=== PATIENT | male | born 1950 | race Caucasian/White ===

== ENCOUNTER 2017-11-30 08:04 | Day surgery (SDC) | payer MEDICARE, BC ==
[2017-11-23 16:04] VITALS: BMI 25.5
[~2017-11-30 08:04] MED LIST: DEXAMETHASONE SOD PHOSPHATE 10 MG/ML 1 ML VIAL IV ONE; HEPARIN SODIUM,PORCINE 5,000 UNIT/ML 1 ML VIAL SQ ONE; LIDOCAINE 1% 20 ML VIAL (10MG/ML) FOR IV START INTRADERMA PRN; MIDAZOLAM 2 MG/2 ML VIAL IV PRN; ONDANSETRON 4 MG/2 ML VIAL IVP ONE; SCOPOLAMINE 1.5MG/72HR PATCH TRANSDERM ONE; ceFAZolin IN SWFI 2 GM/20 ML SYRINGE IVP ONE
[2017-11-30] MEDS: LACTATED RINGERS 1,000 ML IV SCH (09:34)
[2017-11-30] MEDS ORDERED: LIDOCAINE 1% 20 ML VIAL (10MG/ML) FOR IV START INTRADERMA ONE (09:34)
--- NOTE | 2017-11-30 10:04 | P.GSHP ---
History of Present Illness H&P Date: 11/30/17 Chief Complaint: Left inguinal hernia This is a 67-year-old male presents today for laparoscopic robotic left and one hernia. Patient is mildly tender mass left groin. The mass is reducible. Past Medical History Past Medical History: COPD Additional Past Medical History / Comment(s): left inguinal hernia History of Any Multi-Drug Resistant Organisms: None Reported Past Surgical History: Hernia Repair Additional Past Surgical History / Comment(s): hemorrhoidectomy,throat surg, shoulder Past Anesthesia/Blood Transfusion Reactions: No Reported Reaction Additional Past Anesthesia/Blood Transfusion Reaction / Comment(s): no hx blood transfusion Smoking Status: Current every day smoker - Past Family History Mother Family Medical History: No Reported History Father Family Medical History: Cancer Medications and Allergies Home Medications Medication Instructions Recorded Confirmed Type Aspirin 81 mg PO DAILY 11/23/17 11/23/17 History Budesonide/Formoterol Fumarate 2 puff INHALATION BID 11/23/17 11/23/17 History [Symbicort 160-4.5 Mcg Inhaler] Lovastatin [Mevacor] 20 mg PO HS 11/23/17 11/23/17 History Magnesium 250 mg PO DAILY 11/23/17 11/23/17 History Multivit-Min/FA/Lycopen/Lutein 1 tab PO DAILY 11/23/17 11/23/17 History [Centrum Silver Men Tablet] Naproxen 500 mg PO DAILY 11/23/17 11/23/17 History Tiotropium 18 Mcg/Puff [Spiriva] 1 puff INHALATION QAM 11/23/17 11/23/17 History diphenhydrAMINE HCL [Benadryl] 50 mg PO HS 11/23/17 11/23/17 History Allergies Allergy/AdvReac Type Severity Reaction Status Date / Time No Known Allergies Allergy Verified 11/30/17 08:54 Surgical - Exam Vital Signs Temp Pulse Resp BP Pulse Ox 97.3 F L 100 16 155/101 94 L 11/30/17 09:32 11/30/17 09:32 11/30/17 09:32 11/30/17 09:32 11/30/17 09:32 - General well developed, no distress - Eyes PERRL - ENT normal pinna - Neck no masses - Respiratory normal expansion - Cardiovascular Rhythm: regular - Abdomen Reducible left inguinal hernia Abdomen: soft, non tender Assessment and Plan Assessment: Left inguinal hernia. We'll perform laparoscopic robotic-assisted repair.
--- NOTE | 2017-11-30 10:15 | P.OP ---
Date of Procedure: 11/30/17 Preoperative Diagnosis: Right lower quadrant pain Inflamed or bowel disease Postoperative Diagnosis: Poor colonic prep Inflammatory bowel disease Procedure(s) Performed: Colonoscopy Anesthesia: MAC Surgeon: Chris Mcclendon Pathology: none sent Condition: stable Disposition: PACU Description of Procedure: The patient's placed on the endoscopy table in the lateral position. She received IV sedation. Digital rectal exam was performed which revealed no abnormalities. The flexible colonoscope was then placed patient anus passed with colon. The scope passed down splenic flexure secondary to poor colonic prep. There was a large amount of liquid stool in the colon. Scope was withdrawn. The remainder the descending; appeared normal however the view was quite limited due to the poor colonic prep. Scope was then brought back the rectum this appeared normal scope was withdrawn for patient.
[2017-11-30] MEDS ORDERED: NEOSTIGMINE 1 MG/ML 10 ML VIAL ONE (10:39)
[2017-11-30] MEDS ORDERED: ROCURONIUM BROMIDE 10 MG/ML 10 ML VIAL IV ONE (10:39)
[2017-11-30] MEDS ORDERED: LIDOCAINE 1% INJ 10MG/ML (20 ML MDV) ONE (10:39)
[2017-11-30] MEDS ORDERED: fentaNYL (PF) 50 MCG/ML 2 ML AMP ONE (10:39)
[2017-11-30] MEDS ORDERED: PROPOFOL 10 MG/ML 20 ML VIAL IV ONE (10:39)
[2017-11-30] MEDS ORDERED: ROPIVACAINE 5 MG/ML 30 ML VIAL ONE (10:39)
[2017-11-30] MEDS ORDERED: GLYCOPYRROLATE 0.2 MG/ML 2 ML VIAL ONE (10:39)
[2017-11-30] MEDS ORDERED: BUPIVACAIN-EPI 0.25%-1:200,000 30 ML VIAL SQ ONE (11:02)
[2017-11-30 11:45] VITALS: TEMP 98.5
--- NOTE | 2017-11-30 11:48 | P.OP ---
Date of Procedure: 11/30/17 Preoperative Diagnosis: Left inguinal hernia Postoperative Diagnosis: Recurrent left inguinal hernia Procedure(s) Performed: Laparoscopic robotic-assisted repair of left inguinal hernia Excision of left cord lipoma Anesthesia: GEORGE Surgeon: Chris Mcclendon Estimated Blood Loss (ml): 5 Pathology: other (Cord lipoma) Condition: stable Disposition: PACU Description of Procedure: The patient was placed on the operating table in the supine position. The patient received general anesthesia. The patient's abdomen was prepped and draped in usual sterile fashion. The skin was anesthetized 1% local Xylocaine at the incision sites. Using an 11 blade a skin incision was made at the umbilicus. The fascia was grasped with a [place] and then the peritoneal cavity was entered with the Veress needle. Position of the Veress needle was confirmed with a positive drop test. After adequate insufflation a 5 mm trocar was placed into the peritoneal cavity. The Laparoscope was placed the peritoneal cavity. And a robotic 8 mm trocar was placed in the right lateral position and then another 8 mm robotic trochars placed in the left lateral position. The original 5 mm trocar was exchanged for a 12 mm trocar. The patient was placed in reverse Trendelenburg and then the patient was docked to the robot. Next the peritoneum over top of the hernia was incised and then using blunt and sharp dissection and electrocautery the hernia sac was dissected free from the floor of the inguinal canal. The cord lipoma was dissected free. The hernia sac was completely reduced into the peritoneal cavity. And then using the Pro cycle counter mesh the hernia was repaired. The peritoneum was then sutured with 2-0V lock suture. The patient was then undocked the robot. The needle and cord lipoma was withdrawn from the peritoneal cavity. The umbilical trocar site was closed with 0 Ethibond suture. The skin was closed interrupted 3-0 Monocryl suture. Dermabond dressing was applied. Patient was sent to recovery in stable condition.
[2017-11-30] MEDS: HYDROmorphone 0.5 MG/0.5 ML SYRINGE IVP PRN ×2 (12:08→12:21)
[2017-11-30 12:54] VITALS: RESP 20
[2017-11-30 13:17] VITALS: PULSE 100
[2017-11-30 13:18] VITALS: BP 146/81
--- NOTE | 2017-12-01 20:41 | P.ONQ ---
Anesthesiology Proc Note - PNB - Peripheral Nerve Block Performed Bilateral Transversus Abdominis Single Time Out Performed: Yes Procedure Start Time: Procedure Stop Time: Indication: Acute Post-Operative Pain, Requested by physician Sedation Type: Sedate with meaningful contact maintained Preparation: Sterile Prep Position: Supine Needle Size: 50mm (2") Needle Gauge: 21 Technique: Ultrasound Injectate: 0.5% Ropivacaine (see comment for volume) (ropi .5% 15cceach side) Blood Aspirated: No Pain Paresthesia on Injection Noted: No Resistance on Injection: Normal Events: Uneventful and Well Tolerated
== END 2017-11-30 14:30 | disposition home or self-care (01) ==
LOC: OR 08:04
PROVIDERS: ATTEND Surgery
DX: K40.90 Unilateral inguinal hernia, without obstruction or gangrene, not specified as recurrent (principal); D17.6 Benign lipomatous neoplasm of spermatic cord; J44.9 Chronic obstructive pulmonary disease, unspecified; E78.5 Hyperlipidemia, unspecified; F17.210 Nicotine dependence, cigarettes, uncomplicated; Z79.1 Long term (current) use of non-steroidal anti-inflammatories (NSAID); Z79.82 Long term (current) use of aspirin; Z79.51 Long term (current) use of inhaled steroids; Z79.899 Other long term (current) drug therapy
CPT/HCPCS: 49650; 64488; 88304; C1781; J2250; J1644; J1100; J2710; J2405; J2001; J3010; J2795; J2704; J1170; J0690

== ENCOUNTER 2018-07-26 06:44 | Inpatient (IN) | payer BC, MEDICARE ==
[2018-07-26] MEDS ORDERED: IPRATROPIUM-ALBUTEROL 3 ML NEB INHALATION STA ×3 (07:24→08:53)
[2018-07-26] MEDS ORDERED: SODIUM CHLORIDE 0.9% 1,000 ML IV STA ×2 (07:24)
[2018-07-26] MEDS ORDERED: methylPREDNISolone SOD SUCCI 125 MG/2 ML VIAL IV STA (07:26)
[2018-07-26] MEDS ORDERED: IBUPROFEN 600 MG TAB PO STA (07:27)
[2018-07-26] MEDS ORDERED: ACETAMINOPHEN TAB 500 MG TAB PO STA (07:27)
[2018-07-26] MEDS ORDERED: cefTRIAXone IN SWFI 1,000 MG/10 ML SYRINGE IVP STA (07:35)
--- NOTE | 2018-07-26 07:37 | ED ---
URI HPI - General Source: patient, RN notes reviewed, old records reviewed Mode of arrival: ambulatory Limitations: physical limitation <Jaelyn Johns - Last Filed: 07/26/18 08:54> <Get Renteria - Last Filed: 07/26/18 09:34> - General Chief Complaint: Upper Respiratory Infection Stated Complaint: Upper Resp Time Seen by Provider: 07/26/18 07:17 - History of Present Illness Initial Comments: Patient is a pleasant 67-year-old male presents for insulin today with cough congestion for the past 4 days. Patient states he has a history of COPD. He's had no recent treatment with steroids or antibiotics. He complains of the femur, congestion that has settled into his lungs. Patient states that he does not normally wear oxygen. Patient arrives emergency department today with a low-grade temperature 99.1, tachycardic in 120 beats were minute. His pulse oxygen saturation was 90% on room air. 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 Patient states that he has had a productive green-yellow sputum cough as well as complaint of chest pain with taking a deep breath. Patient denies any cardiac history. Denies any nausea or vomiting. He does report loose stools over the past few days. (Jaelyn Johns) - Related Data Home Medications Medication Instructions Recorded Confirmed Aspirin 81 mg PO HS 11/23/17 07/26/18 Budesonide/Formoterol Fumarate 2 puff INHALATION RT-BID 11/23/17 07/26/18 [Symbicort 160-4.5 Mcg Inhaler] Lovastatin [Mevacor] 20 mg PO HS 11/23/17 07/26/18 Multivit-Min/FA/Lycopen/Lutein 1 tab PO DAILY 11/23/17 07/26/18 [Centrum Silver Men Tablet] Naproxen 500 mg PO DAILY 11/23/17 07/26/18 Tiotropium 18 Mcg/Puff [Spiriva] 1 puff INHALATION RT-DAILY 11/23/17 07/26/18 diphenhydrAMINE HCL [Benadryl] 50 mg PO HS 11/23/17 07/26/18 Allergies Allergy/AdvReac Type Severity Reaction Status Date / Time No Known Allergies Allergy Verified 07/26/18 07:27 Review of Systems ROS Other: All systems not noted in ROS Statement are negative. <Ceci Johnsily - Last Filed: 07/26/18 08:54> ROS Other: All systems not noted in ROS Statement are negative. <Get Renteria - Last Filed: 07/26/18 09:34> ROS Statement: Those systems with pertinent positive or pertinent negative responses have been documented in the HPI. Past Medical History Past Medical History: COPD Additional Past Medical History / Comment(s): left inguinal hernia History of Any Multi-Drug Resistant Organisms: None Reported Past Surgical History: Hernia Repair Additional Past Surgical History / Comment(s): hemorrhoidectomy,throat surg,shoulder Past Anesthesia/Blood Transfusion Reactions: No Reported Reaction Additional Past Anesthesia/Blood Transfusion Reaction / Comment(s): no hx blood transfusion Past Psychological History: No Psychological Hx Reported Smoking Status: Current every day smoker Past Alcohol Use History: None Reported Past Drug Use History: None Reported - Past Family History Mother Family Medical History: No Reported History Father Family Medical History: Cancer <Jaelyn Johns - Last Filed: 07/26/18 08:54> General Exam Limitations: physical limitation General appearance: alert, in no apparent distress Head exam: Present: atraumatic, normocephalic, normal inspection Eye exam: Present: normal appearance ENT exam: Present: normal exam, mucous membranes moist Neck exam: Present: normal inspection. Absent: tenderness, meningismus, lymphadenopathy Respiratory exam: Present: wheezes (Wheezing throughout bilateral lower lung fie lds.). Absent: normal lung sounds bilaterally, respiratory distress, rales, rhonchi, stridor Cardiovascular Exam: Present: regular rate, normal rhythm, normal heart sounds. Absent: systolic murmur, diastolic murmur, rubs, gallop, clicks GI/Abdominal exam: Present: soft, normal bowel sounds. Absent: distended, tenderness, guarding, rebound, rigid Extremities exam: Present: normal inspection, full ROM, normal capillary refill. Absent: tenderness, pedal edema, joint swelling, calf tenderness Back exam: Present: normal inspection Neurological exam: Present: alert, oriented X3, CN II-XII intact Psychiatric exam: Present: normal affect, normal mood Skin exam: Present: warm, dry, intact, normal color. Absent: rash <Jaelyn Johns - Last Filed: 07/26/18 08:54> - General Exam Comments Initial Comments: Pleasant 67-year-old male. Patient appears to be in mild S for discomfort, sitting forward (Jaelyn Johns) Course <Jaelyn Johns - Last Filed: 07/26/18 08:54> Vital Signs 07/26/18 07/26/18 07/26/18 06:47 07:50 08:14 Temperature 99.1 F 99.2 F Pulse Rate 72 110 H 102 H Respiratory 18 22 Rate Blood Pressure 145/82 137/78 O2 Sat by Pulse 90 L 93 L Oximetry 07/26/18 07/26/18 07/26/18 08:23 08:57 09:09 Temperature Pulse Rate 103 H 101 H 103 H Respiratory Rate Blood Pressure O2 Sat by Pulse Oximetry 07/26/18 09:23 Temperature Pulse Rate 103 H Respiratory 18 Rate Blood Pressure 105/63 O2 Sat by Pulse 90 L Oximetry - Reevaluation(s) Reevaluation #1: 07/26/18 08:54 Patient is reevaluated this time after 2 breathing treatments, pulse ox is still 90% on 2 L of oxygen, diffuse wheezing noted. Informed of pneumonia and blood work findings. Discussed admission for Patient Patient is agreeable. (Jaelyn Coe) Medical Decision Making - Lab Data Result diagrams: 07/26/18 07:30 07/26/18 07:30 - Radiology Data Radiology results: report reviewed <Jaelyn Johns - Last Filed: 07/26/18 08:54> - Lab Data Result diagrams: 07/26/18 07:30 07/26/18 07:30 <Get Renteria - Last Filed: 07/26/18 09:34> - Medical Decision Making Patient's a 67-year-old male history of COPD. He presents [facility] in today with 4 days of congestion and coughing low-grade temperatures. He reports emergency department mild respiratory discomfort distress, fever or tachycardia. Patient chest x-ray shows evidence of a right basilar pneumonia with underlying COPD changes. Patient started on Solu-Medrol and given 3 breathing treatments continuing to have some wheezing noted. Patient started on Rocephin and azithromycin for pneumonia. Patient was admitted this time with consult p ulmonology. All questions answered. Discussed case with Dr. Renteria from discussed this with Dr. Rice. (Jaelyn Johns) Patient was reevaluated by myself, Dr. Renteria. Patient is resting comfortably in bed. Patient does have wheezing with breath sounds. I do agree with PA findings. This includes diagnostic interpretation and treatment plan. Case was also discussed in detail with Dr. Rice, who will admit covering for Dr. Dorantes. Patient was updated. (Get Renteria) - Lab Data Lab Results 07/26/18 07/26/18 07/26/18 Range/Units 07:30 07:30 07:30 WBC 13.1 H (3.8-10.6) k/uL RBC 5.22 (4.30-5.90) m/uL Hgb 14.3 (13.0-17.5) gm/dL Hct 45.2 (39.0-53.0) % MCV 86.7 (80.0-100.0) fL MCH 27.4 (25.0-35.0) pg MCHC 31.6 (31.0-37.0) g/dL RDW 15.1 (11.5-15.5) % Plt Count 251 (150-450) k/uL Neutrophils % 89 % Lymphocytes % 5 % Monocytes % 4 % Eosinophils % 0 % Basophils % 0 % Neutrophils # 11.6 H (1.3-7.7) k/uL Lymphocytes # 0.7 L (1.0-4.8) k/uL Monocytes # 0.6 (0-1.0) k/uL Eosinophils # 0.1 (0-0.7) k/uL Basophils # 0.0 (0-0.2) k/uL PT 10.6 (9.0-12.0) sec INR 1.0 (<1.2) APTT 27.1 (22.0-30.0) sec Sodium 137 (137-145) mmol/L Potassium 4.5 (3.5-5.1) mmol/L Chloride 103 (98-107) mmol/L Carbon Dioxide 26 (22-30) mmol/L Anion Gap 8 mmol/L BUN 19 (9-20) mg/dL Creatinine 1.17 (0.66-1.25) mg/dL Est GFR (CKD-EPI)AfAm 74 (>60 ml/min/1.73 sqM) Est GFR (CKD-EPI)NonAf 64 (>60 ml/min/1.73 sqM) Glucose 111 H (74-99) mg/dL Plasma Lactic Acid Riley (0.7-2.0) mmol/L Calcium 9.0 (8.4-10.2) mg/dL Magnesium 2.0 (1.6-2.3) mg/dL Total Bilirubin 0.6 (0.2-1.3) mg/dL AST 34 (17-59) U/L ALT 27 (21-72) U/L Alkaline Phosphatase 72 (38-126) U/L Troponin I (0.000-0.034) ng/mL Total Protein 6.4 (6.3-8.2) g/dL Albumin 3.5 (3.5-5.0) g/dL 07/26/18 07/26/18 Range/Units 07:30 07:30 WBC (3.8-10.6) k/uL RBC (4.30-5.90) m/uL Hgb (13.0-17.5) gm/dL Hct (39.0-53.0) % MCV (80.0-100.0) fL MCH (25.0-35.0) pg MCHC (31.0-37.0) g/dL RDW (11.5-15.5) % Plt Count (150-450) k/uL Neutrophils % % Lymphocytes % % Monocytes % % Eosinophils % % Basophils % % Neutrophils # (1.3-7.7) k/uL Lymphocytes # (1.0-4.8) k/uL Monocytes # (0-1.0) k/uL Eosinophils # (0-0.7) k/uL Basophils # (0-0.2) k/uL PT (9.0-12.0) sec INR (<1.2) APTT (22.0-30.0) sec Sodium (137-145) mmol/L Potassium (3.5-5.1) mmol/L Chloride (98-107) mmol/L Carbon Dioxide (22-30) mmol/L Anion Gap mmol/L BUN (9-20) mg/dL Creatinine (0.66-1.25) mg/dL Est GFR (CKD-EPI)AfAm (>60 ml/min/1.73 sqM) Est GFR (CKD-EPI)NonAf (>60 ml/min/1.73 sqM) Glucose (74-99) mg/dL Plasma Lactic Acid Riley 1.0 (0.7-2.0) mmol/L Calcium (8.4-10.2) mg/dL Magnesium (1.6-2.3) mg/dL Total Bilirubin (0.2-1.3) mg/dL AST (17-59) U/L ALT (21-72) U/L Alkaline Phosphatase (38-126) U/L Troponin I <0.012 (0.000-0.034) ng/mL Total Protein (6.3-8.2) g/dL Albumin (3.5-5.0) g/dL 07/26/18 07:57 EKG shows sinus tachycardia possible left atrial enlargement. Ventricular rate of 111 beats were minute. FL interval is 156 most seconds. She samaritan 92 ms. QT QTc is 324/440 ms. (Jaelyn Johns) - Radiology Data Right basilar pneumonia, underlying COPD. A bronchial cuffing that may relate to infectious, reactive airway disease. (Jaelyn Johns) Disposition Is patient prescribed a controlled substance at d/c from ED?: No Time of Disposition: 08:55 <Jaelyn Johns - Last Filed: 07/26/18 08:54> <Get Renteria - Last Filed: 07/26/18 09:34> Clinical Impression: CAP (community acquired pneumonia), COPD (chronic obstructive pulmonary disease) Disposition: ADMITTED IP TO THIS HOSP Condition: Stable Referrals: Britany Lomas DO [Primary Care Provider] - 1-2 days
[2018-07-26 08:03] LABS: Basophils % (A) 0 %; Eosinophils # (A) 0.1 k/uL (0-0.7); Eosinophils % (A) 0 %; HCT 45.2 % (39.0-53.0); HGB 14.3 gm/dL (13.0-17.5); Lymphocytes # (A) 0.7 k/uL (1.0-4.8); Lymphocytes % (A) 5 %; MCH 27.4 pg (25.0-35.0); MCHC 31.6 g/dL (31.0-37.0); MCV 86.7 fL (80.0-100.0); Mean Platelet Volume 6.9; Monocytes # (A) 0.6 k/uL (0-1.0); Monocytes % (A) 4 %; Neutrophils # (A) 11.6 k/uL (1.3-7.7); Neutrophils % (A) 89 %; Platelet Count 251 k/uL (150-450); RBC 5.22 m/uL (4.30-5.90); RDW 15.1 % (11.5-15.5); WBC 13.1 k/uL (3.8-10.6)
--- NOTE | 2018-07-26 08:09 | XR ---
EXAMINATION TYPE: XR chest 2V DATE OF EXAM: 07/26/2018 COMPARISON: NONE HISTORY: Difficulty breathing TECHNIQUE: Frontal and lateral views of the chest are obtained. FINDINGS: Pulmonary hyperinflation and flattening of the diaphragms is indicative of underlying COPD . Additionally there is a focal right basilar consolidation and diffuse peribronchial cuffing. Minima l generative changes of the spine are seen. Cardiomediastinal silhouette is within normal limits. No pleural effusion or pneumothorax. IMPRESSION: Right basilar pneumonia, underlying COPD, and bronchial cuffing that may relate to reactive or infect ious airway disease.
[2018-07-26 08:10] LABS: Albumin 3.5 g/dL (3.5-5.0); Partial Thromboplastin Time 27.1 sec (22.0-30.0); Potassium 4.5 mmol/L (3.5-5.1); Prothrombin Time 10.6 sec (9.0-12.0); Total Bilirubin 0.6 mg/dL (0.2-1.3); Total Protein 6.4 g/dL (6.3-8.2)
[2018-07-26] MEDS ORDERED: AZITHROMYCIN 500 MG in SODIUM CHLORIDE 0.9% 250 ML IVPB STA (08:56)
[2018-07-26] MEDS ORDERED: PNEUMONIA PROTOCOL UTILIZED 1 EACH MISC PO PRN (08:56)
[2018-07-26] MEDS: IPRATROPIUM-ALBUTEROL 3 ML NEB INHALATION PRN ×2 (12:55→15:33)
--- NOTE | 2018-07-26 13:15 | P.HPIM ---
History of Present Illness H&P Date: 07/26/18 This is a 67-year-old male patient of Dr. Lomas. Patient presented with complaints of increased shortness of breath. Patient reports that he woke up Tuesday with having increased shortness breath that progressively became worse throughout the day yesterday. Patient reports that he had some chest tightness with the coughing and congestion. Patient denies any significant cardiac history. Patient reports he does have history of COPD and current half pack smoker. Patient started on IV steroids IV antibiotics DuoNeb updraft breathing treatments. Repeat chest x-ray ordered. Pulmonary services have been consulted. Serial troponins and 2-D echo has been ordered. Sputum culture ordered. At this time patient reports significant improvement with shortness of breath. Patient denies any chest pain. Patient denies nausea vomiting or diarrhea. Patient denies any urinary burning or frequency Review of Systems Please refer to HPI otherwise unremarkable Past Medical History Past Medical History: COPD Additional Past Medical History / Comment(s): left inguinal hernia History of Any Multi-Drug Resistant Organisms: None Reported Past Surgical History: Hernia Repair Additional Past Surgical History / Comment(s): hemorrhoidectomy,throat surg,shoulder Past Anesthesia/Blood Transfusion Reactions: No Reported Reaction Additional Past Anesthesia/Blood Transfusion Reaction / Comment(s): no hx blood transfusion Past Psychological History: No Psychological Hx Reported Smoking Status: Current every day smoker Past Alcohol Use History: None Reported Past Drug Use History: None Reported - Past Family History Mother Family Medical History: No Reported History Father Family Medical History: Cancer Medications and Allergies Home Medications Medication Instructions Recorded Confirmed Type Aspirin 81 mg PO HS 11/23/17 07/26/18 History Budesonide/Formoterol Fumarate 2 puff INHALATION RT-BID 11/23/17 07/26/18 History [Symbicort 160-4.5 Mcg Inhaler] Lovastatin [Mevacor] 20 mg PO HS 11/23/17 07/26/18 History Multivit-Min/FA/Lycopen/Lutein 1 tab PO DAILY 11/23/17 07/26/18 History [Centrum Silver Men Tablet] Naproxen 500 mg PO DAILY 11/23/17 07/26/18 History Tiotropium 18 Mcg/Puff [Spiriva] 1 puff INHALATION RT-DAILY 11/23/17 07/26/18 History diphenhydrAMINE HCL [Benadryl] 50 mg PO HS 11/23/17 07/26/18 History Allergies Allergy/AdvReac Type Severity Reaction Status Date / Time No Known Allergies Allergy Verified 07/26/18 07:27 Physical Exam Vitals: Vital Signs Temp Pulse Resp BP Pulse Ox 07/26/18 09:23 103 H 18 105/63 90 L 07/26/18 09:09 103 H 07/26/18 08:57 101 H 07/26/18 08:23 103 H 07/26/18 08:14 102 H 07/26/18 07:50 99.2 F 110 H 22 137/78 93 L 07/26/18 06:47 99.1 F 72 18 145/82 90 L Intake and Output 07/25/18 07/26/18 07/26/18 22:59 06:59 14:59 Other: Weight 72.575 kg Head normocephalic Neck supple Lungs diminished bilaterally with expiratory wheezing Heart regular rate and rhythm S1-S2, no rub or gallop Abdomen is soft nontender nondistended positive bowel sounds no hepatosplenomegaly Extremities no edema Neuro alert and orientated to 3 Results CBC & Chem 7: 07/26/18 07:30 07/26/18 07:30 Labs: Abnormal Lab Results - Last 24 Hours (Table) 07/26/18 07/26/18 Range/Units 07:30 07:30 WBC 13.1 H (3.8-10.6) k/uL Neutrophils # 11.6 H (1.3-7.7) k/uL Lymphocytes # 0.7 L (1.0-4.8) k/uL Glucose 111 H (74-99) mg/dL Assessment and Plan Assessment: 1. Shortness breath related to pneumonia and COPD exacerbation. Chest x-ray completed showing right basilar pneumonia, underlying COPD, and bronchial cuffing that may relate to active or infectious airway disease. Pulmonate services have been consulted. Sputum culture ordered repeat 2 view chest x-ray ordered. Patient started on DuoNeb, IV antibiotics and Solu-Medrol. 2. Chest tightness with coughing. EKG showing sinus tachycardia, possible left atrial enlargement. Likely pleuritic in nature. 2-D echo and serial troponins ordered 3. Nicotine dependence. Patient educated longer than 3 minutes on smoking cessation. Nicotine patch ordered 4. COPD. Patient reports he does not follow with engineering lab technician at this time 5. History of GERD 6. History of osteoarthritis 7. History of hernia repair DVT prophylaxis heparin. GI prophylaxis Time with Patient: Greater than 30 (Greater than 60% of the total time spent in counseling and coordination of care. I performed an examination of the patient and discussed their management with the Nurse Practitioner. I have reviewed the Nurse Practitioner's notes and agree with the documented findings and plan of care)
[2018-07-26] MEDS: SODIUM CHLORIDE 0.9% 1,000 ML IV SCH ×2 (13:48→21:24)
[2018-07-26] MEDS: methylPREDNISolone SOD SUCCI 125 MG/2 ML VIAL IV SCH ×2 (15:15→23:43)
[2018-07-26 18:03] LABS: Glucose,Whole Blood 179 mg/dL (75-99)
[2018-07-26] MEDS: INSULIN ASPART (NovoLOG) 100 UNIT/ML VIAL SQ SCH ×2 (18:04→21:24)
--- NOTE | 2018-07-26 18:19 | P.CNPUL ---
History of Present Illness Consult date: 07/26/18 Reason for consult: dyspnea, COPD History of present illness: 67-year-old male patient coming into the hospital because of worsening shortness of breath. The patient has been progressively getting short of breath over the past 3 days. Presented to the hospital because of increased dyspnea cough chest tightness chest wheezing and chest congestion. Chest x-ray showed a limited right basilar pulmonary infiltrates suspicious for an underlying pneumonia. The patient is known to have COPD and is a chronic smoker and smokes one half pack of cigarettes a day. For all this reason a pulmonary consultation was requested. His influenza screen was negative. White cell count is not elevated. Aggressive blood work and electrodes are all within normal limits. Currently the patient on a combination of bronchodilators and steroids and he is also covered with a combination of Rocephin and Zithromax. He is on IV Solu Medrol 60 mg every 6 hours. He is on IV fluids with normal saline today to 100 mL an hour. EKG showing sinus tachycardia. Review of Systems Constitutional: Denies chills, Denies fever Eyes: denies blurred vision, denies bulging eye, denies decreased vision Ears: deny: decreased hearing, ear discharge, earache, tinnitus Ears, nose, mouth and throat: Denies headache, Denies sore throat Cardiovascular: Reports decreased exercise tolerance, Reports dyspnea on exertion Respiratory: Reports cough, Reports dyspnea, Reports wheezing Gastrointestinal: Reports as per HPI Genitourinary: Reports as per HPI Musculoskeletal: Reports as per HPI Musculoskeletal: absent: ankle pain, ankle stiffness, ankle swelling Integumentary: Reports as per HPI Neurological: Reports as per HPI Psychiatric: Reports as per HPI Endocrine: Reports as per HPI Hematologic/Lymphatic: Reports as per HPI Allergic/Immunologic: Reports as per HPI Past Medical History Past Medical History: COPD Additional Past Medical History / Comment(s): left inguinal hernia History of Any Multi-Drug Resistant Organisms: None Reported Past Surgical History: Hernia Repair Additional Past Surgical History / Comment(s): hemorrhoidectomy,throat surg, left inguinal hernia repair, shoulder surgery Past Anesthesia/Blood Transfusion Reactions: No Reported Reaction Additional Past Anesthesia/Blood Transfusion Reaction / Comment(s): no hx blood transfusion Past Psychological History: No Psychological Hx Reported Smoking Status: Current every day smoker Past Alcohol Use History: None Reported Past Drug Use History: None Reported - Past Family History Mother Family Medical History: No Reported History Additional Family Medical History / Comment(s): Mother had a cardiac valve replaced. Father Family Medical History: Cancer Additional Family Medical History / Comment(s): Lymphoma Medications and Allergies Home Medications Medication Instructions Recorded Confirmed Type Aspirin 81 mg PO HS 11/23/17 07/26/18 History Budesonide/Formoterol Fumarate 2 puff INHALATION RT-BID 11/23/17 07/26/18 History [Symbicort 160-4.5 Mcg Inhaler] Lovastatin [Mevacor] 20 mg PO HS 11/23/17 07/26/18 History Multivit-Min/FA/Lycopen/Lutein 1 tab PO DAILY 11/23/17 07/26/18 History [Centrum Silver Men Tablet] Naproxen 500 mg PO DAILY 11/23/17 07/26/18 History Tiotropium 18 Mcg/Puff [Spiriva] 1 puff INHALATION RT-DAILY 11/23/17 07/26/18 History diphenhydrAMINE HCL [Benadryl] 50 mg PO HS 11/23/17 07/26/18 History Allergies Allergy/AdvReac Type Severity Reaction Status Date / Time No Known Allergies Allergy Verified 07/26/18 07:27 Physical Exam Vitals: Vital Signs Temp Pulse Pulse Resp BP BP Pulse Ox 07/26/18 15:44 103 H 18 07/26/18 15:33 101 H 18 07/26/18 13:10 98.2 F 93 20 110/70 92 L 07/26/18 13:05 92 07/26/18 12:55 88 07/26/18 12:51 92 L 07/26/18 09:23 103 H 18 105/63 90 L 07/26/18 09:09 103 H 07/26/18 08:57 101 H 07/26/18 08:23 103 H 07/26/18 08:14 102 H 07/26/18 07:50 99.2 F 110 H 22 137/78 93 L 07/26/18 06:47 99.1 F 72 18 145/82 90 L Intake and Output 07/26/18 07/26/18 07/26/18 06:59 14:59 22:59 Other: # Voids 1 Weight 72.575 kg The patient appeared well nourished and normally developed. Vital signs as documented. Head exam is unremarkable. No scleral icterus or corneal arcus noted. Neck is without jugular venous distension, thyromegaly, or carotid bruits. Carotid upstrokes are brisk bilaterally. Lungs diminished and there is diffuse expiratory wheezes throughout the lung rodriguez bilaterally. Cardiac exam reveals the PMI to be normally sized and situated. Rhythm is regular. First and second heart sounds normal. No murmurs, rubs or gallops. Abdominal exam reveals normal bowel sounds, no masses, no organomegaly and no aortic enlargement. Extremities are nonedematous and both femoral and pedal pulses are normal.Examination of the skin revealed no evidence of significant rashes, suspicious appearing nevi or other concerning lesions. Neurologically the patient is awake and alert and there is no focal neurological deficits Results - Laboratory Findings CBC and BMP: 07/26/18 07:30 07/26/18 07:30 PT/INR, D-dimer PT 10.6 sec (9.0-12.0) 07/26/18 07:30 INR 1.0 (<1.2) 07/26/18 07:30 Abnormal lab findings: Abnormal Labs 07/26/18 07/26/18 07:30 07:30 WBC 13.1 H Neutrophils # 11.6 H Lymphocytes # 0.7 L Glucose 111 H - Diagnostic Findings Chest x-ray: image reviewed Assessment and Plan Plan: 1 acute COPD exacerbation with secondary shortness of breath 2 right lower lobe pneumonia and the patient is a right basilar airspace disease on admission chest x-ray. 3 dyspnea and cough secondary to above 4 acid reflux 5 osteoarthritis 6 smoking Plan Sputum Gram stain and culture. Blood culture. Rocephin and Zithromax. IV Solu-Medrol. DuoNeb nebulized treatments around the clock. Smoking cessation counseling will be done. We'll continue to follow. Nicotine patches were ordered. Add nystatin for oropharyngeal thrush.
[2018-07-26] MEDS: IPRATROPIUM 0.5 MG/2.5 ML NEBU INHALATION SCH (19:20)
[2018-07-26] MEDS: SYMBICORT 160-4.5 MCG INHALER INHALATION SCH (19:21)
--- NOTE | 2018-07-26 19:57 | ECHOF ---
Referral Reason:chest tightnes MEASUREMENTS -------- HEIGHT: 172.7 cm WEIGHT: 72.6 kg BP: RVIDd: 2.9 cm (< 3.3) IVSd: 1.5 cm (0.6 - 1.1) LVIDd: 3.7 cm (3.9 - 5.3) LVPWd: 1.2 cm (0.6 - 1.1) IVSs: 1.5 cm LVIDs: 2.2 cm LVPWs: 1.7 cm LAESV Index (A-L): 16.69 ml/m Ao Diam: 2.9 cm (2.0 - 3.7) AV Cusp: 1.7 cm (1.5 - 2.6) LA Diam: 2.8 cm (2.7 - 3.8) MV EXCURSION: 16.399 mm (> 18.000) MV EF SLOPE: 135 mm/s (70 - 150) EPSS: 0.6 cm MV E Eladio: 0.81 m/s MV DecT: 154 ms MV A Eladio: 0.72 m/s MV E/A Ratio: 1.13 RAP: 5.00 mmHg RVSP: 22.84 mmHg FINDINGS -------- Sinus rhythm. This was a technically adequate study. The left ventricular size is normal. There is mild concentric left ventricular hypertrophy. Overa ll left ventricular systolic function is normal with, an EF between 55 - 60 %. The right ventricle is normal in size. Normal LA size by volume 22+/-6 ml/m2. The right atrial size is normal. Interatrial and interventricular septum intact. The aortic valve is trileaflet and appears structurally normal. Mild mitral annular calcification present. No mitral regurgitation. Mild tricuspid regurgitation present. There is no evidence of pulmonary hypertension. The right v entricular systolic pressure, as measured by Doppler, is 22.84mmHg. There is no pulmonic regurgitation present. The aortic root size is normal. The inferior vena cava is mildly dilated. Echo free space indicative of a pericardial fat pad. CONCLUSIONS -------- 1. Sinus rhythm. 2. This was a technically adequate study. 3. The left ventricular size is normal. 4. There is mild concentric left ventricular hypertrophy. 5. Overall left ventricular systolic function is normal with, an EF between 55 - 60 %. 6. The right ventricle is normal in size. 7. Normal LA size by volume 22+/-6 ml/m2. 8. The right atrial size is normal. 9. Interatrial and interventricular septum intact. 10. The aortic valve is trileaflet and appears structurally normal. 11. Mild mitral annular calcification present. 12. No mitral regurgitation. 13. Mild tricuspid regurgitation present. 14. There is no evidence of pulmonary hypertension. 15. The right ventricular systolic pressure, as measured by Doppler, is 22.84mmHg. 16. There is no pulmonic regurgitation present. 17. The aortic root size is normal. 18. The inferior vena cava is mildly dilated. 19. Echo free space indicative of a pericardial fat pad. [employer]JECT MANAGER: Shruthi Nolen RDCS
[2018-07-26 20:51] LABS: Glucose,Whole Blood 186 mg/dL (75-99)
[2018-07-26] MEDS: NYSTATIN 100,000 UNIT/ML SUSP 500,000 UNIT/5 ML CUP PO SCH ×2 (21:23→23:43)
[2018-07-26] MEDS: diphenhydrAMINE 25 MG CAP PO SCH (21:24)
[2018-07-26] MEDS: ASPIRIN 81 MG PO SCH (21:24)
[2018-07-26] MEDS: ATORVASTATIN 10 MG TAB PO SCH (21:24)
[2018-07-26] MEDS: HEPARIN SODIUM,PORCINE 5,000 UNIT/ML 1 ML VIAL SQ SCH (21:24)
[2018-07-27] MEDS: SODIUM CHLORIDE 0.9% 1,000 ML IV SCH ×3 (05:23→23:46)
[2018-07-27] MEDS: INSULIN ASPART (NovoLOG) 100 UNIT/ML VIAL SQ SCH ×4 (07:04→22:01)
[2018-07-27 07:20] LABS: Glucose,Whole Blood 128 mg/dL (75-99)
[2018-07-27] MEDS: SYMBICORT 160-4.5 MCG INHALER INHALATION SCH ×2 (07:48→20:35)
[2018-07-27] MEDS: AZITHROMYCIN 500 MG TAB PO SCH (08:01)
[2018-07-27] MEDS: PANTOPRAZOLE 40 MG TABLET PO SCH (08:01)
[2018-07-27] MEDS: methylPREDNISolone SOD SUCCI 125 MG/2 ML VIAL IV SCH ×3 (08:02→23:46)
[2018-07-27] MEDS: NICOTINE 14MG/24HR PATCH TRANSDERM SCH (08:02)
[2018-07-27] MEDS: NYSTATIN 100,000 UNIT/ML SUSP 500,000 UNIT/5 ML CUP PO SCH ×4 (08:05→22:01)
[2018-07-27] MEDS: VIT A,C & E-LUTEIN-MINERALS 1 EACH TAB PO SCH (08:05)
[2018-07-27] MEDS: HEPARIN SODIUM,PORCINE 5,000 UNIT/ML 1 ML VIAL SQ SCH ×2 (08:08→22:01)
[2018-07-27] MEDS: IPRATROPIUM 0.5 MG/2.5 ML NEBU INHALATION SCH ×4 (09:46→20:36)
--- NOTE | 2018-07-27 10:02 | XR ---
EXAMINATION TYPE: XR chest 2V DATE OF EXAM: 07/27/2018 COMPARISON: Prior chest x-ray 07/26/2018 HISTORY: Pneumonia TECHNIQUE: Frontal and lateral views of the chest are obtained. FINDINGS: There are prominent lung volumes with flattening the hemidiaphragms. Interstitial changes are again present. Airspace disease suspected towards the level of the right costophrenic angle. Hear t size is stable. Aorta is dense. No evident pneumothorax. Density within the right shoulder may be p ostoperative finding. No pleural effusion. IMPRESSION: Correlate for pneumonia. Follow-up recommended.
[2018-07-27 10:24] LABS: Basophils % (A) 0 %; Eosinophils % (A) 0 %; HCT 38.7 % (39.0-53.0); HGB 12.1 gm/dL (13.0-17.5); Hypochromasia Slight; Lymphocytes # (A) 0.5 k/uL (1.0-4.8); Lymphocytes % (A) 3 %; MCH 27.6 pg (25.0-35.0); MCHC 31.1 g/dL (31.0-37.0); MCV 88.8 fL (80.0-100.0); Mean Platelet Volume 7.1; Monocytes # (A) 0.4 k/uL (0-1.0); Monocytes % (A) 2 %; Neutrophils # (A) 14.4 k/uL (1.3-7.7); Neutrophils % (A) 94 %; Platelet Count 243 k/uL (150-450); RBC 4.36 m/uL (4.30-5.90); RDW 15.3 % (11.5-15.5); WBC 15.4 k/uL (3.8-10.6)
[2018-07-27 10:42] LABS: ALT 22 U/L (21-72); AST 32 U/L (17-59); African American GFR (CKD) >90 (>60 ml/min/1.73 sqM); Albumin 2.9 g/dL (3.5-5.0); Alkaline Phosphatase 60 U/L (38-126); Anion Gap 7 mmol/L; Blood Urea Nitrogen 21 mg/dL (9-20); Calcium 8.4 mg/dL (8.4-10.2); Carbon Dioxide 25 mmol/L (22-30); Chloride 109 mmol/L (98-107); Glucose 124 mg/dL (74-99); Potassium 4.5 mmol/L (3.5-5.1); Sodium 141 mmol/L (137-145); Total Bilirubin 0.3 mg/dL (0.2-1.3); Total Protein 5.5 g/dL (6.3-8.2)
--- NOTE | 2018-07-27 11:06 | P.PN ---
Subjective Progress Note Date: 07/27/18 This is a 67-year-old male patient of Dr. Lomas. Patient presented with complaints of increased shortness of breath. Patient reports that he woke up Tuesday with having increased shortness breath that progressively became worse throughout the day yesterday. Patient reports that he had some chest tightness with the coughing and congestion. Patient denies any significant cardiac history. Patient reports he does have history of COPD and current half pack smoker. Patient started on IV steroids IV antibiotics DuoNeb updraft breathing treatments. Repeat chest x-ray ordered. Pulmonary services have been consulted. Serial troponins and 2-D echo has been ordered. Sputum culture ordered. At this time patient reports significant improvement with shortness of breath. Patient denies any chest pain. Patient denies nausea vomiting or diarrhea. Patient denies any urinary burning or frequency On 07/27/2018 patient is alert and oriented 3 resting comfortably in bed. Patient does report improvement with shortness of breath and cough. Patient was able to provide sputum sample. Patient denies any chest pain or shortness of breath. Patient denies nausea vomiting or diarrhea. Patient denies any urinary burning or frequency. Pulmonary services are following. Patient remains on IV antibiotics and Solu-Medrol Objective - Vital Signs Vital signs: Vital Signs Temp 97.9 F 07/27/18 05:37 Pulse 95 07/27/18 05:37 Resp 20 07/27/18 05:37 BP 146/88 07/27/18 05:37 Pulse Ox 94 L 07/27/18 05:37 Intake & Output 07/26/18 07/27/18 07/27/18 18:59 06:59 18:59 Other: # Voids 1 3 - Exam Head normocephalic Neck supple Lungs diminished bilaterally with expiratory wheezing Heart regular rate and rhythm S1-S2, no rub or gallop Abdomen is soft nontender nondistended positive bowel sounds no hepatosplenomegaly Extremities no edema Neuro alert and orientated to 3 - Labs CBC & Chem 7: 07/27/18 09:27 07/27/18 09:27 Labs: Abnormal Lab Results - Last 24 Hours (Table) 07/26/18 07/26/18 07/27/18 Range/Units 18:01 20:50 06:50 WBC (3.8-10.6) k/uL Hgb (13.0-17.5) gm/dL Hct (39.0-53.0) % Neutrophils # (1.3-7.7) k/uL Lymphocytes # (1.0-4.8) k/uL Chloride (98-107) mmol/L BUN (9-20) mg/dL Glucose (74-99) mg/dL POC Glucose (mg/dL) 179 H 186 H 128 H (75-99) mg/dL Total Protein (6.3-8.2) g/dL Albumin (3.5-5.0) g/dL 07/27/18 07/27/18 Range/Units 09:27 09:27 WBC 15.4 H (3.8-10.6) k/uL Hgb 12.1 L (13.0-17.5) gm/dL Hct 38.7 L (39.0-53.0) % Neutrophils # 14.4 H (1.3-7.7) k/uL Lymphocytes # 0.5 L (1.0-4.8) k/uL Chloride 109 H (98-107) mmol/L BUN 21 H (9-20) mg/dL Glucose 124 H (74-99) mg/dL POC Glucose (mg/dL) (75-99) mg/dL Total Protein 5.5 L (6.3-8.2) g/dL Albumin 2.9 L (3.5-5.0) g/dL Microbiology - Last 24 Hours (Table) 07/26/18 07:30 Blood Culture - Preliminary Blood No Growth after 24 hours Assessment and Plan Assessment: 1. Shortness breath related to right lower lobe pneumonia and COPD exacerbation. Chest x-ray completed showing right basilar pneumonia, underlying COPD, and bronchial cuffing that may relate to active or infectious airway disease. Pulmonate services have been consulted. Sputum culture ordered repeat 2 view chest x-ray ordered. Patient started on DuoNeb, IV antibiotics and Solu- Medrol. 2. Chest tightness with coughing. EKG showing sinus tachycardia, possible left atrial enlargement. Likely pleuritic in nature. Troponins negative 3. 2-D echo completed showing an EF of 55-60% 3. Nicotine dependence. Patient educated longer than 3 minutes on smoking cessation. Nicotine patch ordered 4. COPD. Patient reports he does not follow with clinical nursing assistant at this time 5. History of GERD 6. History of osteoarthritis 7. History of hernia repair DVT prophylaxis heparin. GI prophylaxis I performed an examination of the patient and discussed their management with the Nurse Practitioner. I have reviewed the Nurse Practitioner's notes and agree with the documented findings and plan of care
[2018-07-27] MEDS: IPRATROPIUM-ALBUTEROL 3 ML NEB INHALATION PRN ×4 (11:22→20:35)
[2018-07-27 11:57] LABS: Glucose,Whole Blood 129 mg/dL (75-99)
--- NOTE | 2018-07-27 13:35 | P.PN ---
Subjective Progress Note Date: 07/27/18 Principal diagnosis: Acute COPD exacerbation, right lower lobe pneumonia 67-year-old male patient coming into the hospital because of worsening shortness of breath. The patient has been progressively getting short of breath over the past 3 days. Presented to the hospital because of increased dyspnea cough chest tightness chest wheezing and chest congestion. Chest x-ray showed a limited right basilar pulmonary infiltrates suspicious for an underlying pneumonia. The patient is known to have COPD and is a chronic smoker and smokes one half pack of cigarettes a day. For all this reason a pulmonary consultation was requested. His influenza screen was negative. White cell count is not elevated. Aggressive blood work and electrodes are all within normal limits. Currently the patient on a combination of bronchodilators and steroids and he is also covered with a combination of Rocephin and Zithromax. He is on IV Solu Medrol 60 mg every 6 hours. He is on IV fluids with normal saline today to 100 mL an hour. EKG showing sinus tachycardia. On 07/27/2018 patient was seen in follow-up on medical surgical floor. Still dyspneic, and wheezy, but overall is improving, he was able to get up and take a shower, requiring frequent rest, remains on supplemental oxygen, he is on 3 L of oxygen with a pulse ox of 92%. Afebrile, hemodynamically stable, sputum specimen was sent for culture, and is pending at this time, blood culture showed no growth. The coverage in the form of Zithromax and Rocephin, steroids, and nebulized bronchodilators. His chest x-ray has been reviewed, showing similar findings to the previous exam, prominent lung volumes reflecting the hem idiaphragms consistent with underlying COPD, interstitial changes, and airspace disease towards the level of the right costophrenic angle. Hemodynamically stable, breathing easier, no fever or chills. No hemoptysis. No Chest pain. Today's labs have been reviewed, showing white blood cell, 15.4, hemoglobin 12.1, serum sodium is 141, potassium is 0.5, chloride is 109, CO2 is 25, B1 of 21 creatinine 0.95 Objective - Vital Signs Vital signs: Vital Signs Temp 97.6 F 07/27/18 13:06 Pulse 119 H 07/27/18 13:06 Resp 22 07/27/18 13:06 BP 165/83 07/27/18 13:06 Pulse Ox 92 L 07/27/18 13:06 Intake & Output 07/26/18 07/27/18 07/27/18 18:59 06:59 18:59 Other: # Voids 1 3 - Exam GENERAL EXAM: Alert, pleasant, 67-year-old white male, comfortable in no apparent distress. HEAD: Normocephalic/atraumatic. EYES: Normal reaction of pupils, equal size. Conjunctiva pink, sclera white. NOSE: Clear with pink turbinates. THROAT: No erythema or exudates. NECK: No masses, no JVD, no thyroid enlargement, no adenopathy. CHEST: No chest wall deformity. Symmetrical expansion. LUNGS: Equal air entry with diminished breath sounds, expiratory wheezes CVS: Regular rate and rhythm, normal S1 and S2, no gallops, no murmurs, no rubs ABDOMEN: Soft, nontender. No hepatosplenomegaly, normal bowel sounds, no guarding or rigidity. EXTREMITIES: No clubbing, no edema, no cyanosis, 2+ pulses and upper and lower extremities. MUSCULOSKELETAL: Muscle strength and tone normal. SPINE: No scoliosis or deformity SKIN: No rashes CENTRAL NERVOUS SYSTEM: Alert and oriented -3. No focal deficits, tone is normal in all 4 extremities. PSYCHIATRIC: Alert and oriented -3. Appropriate affect. Intact judgment and insight. - Labs CBC & Chem 7: 07/27/18 09:27 07/27/18 09:27 Labs: Abnormal Lab Results - Last 24 Hours (Table) 07/26/18 07/26/18 07/27/18 Range/Units 18:01 20:50 06:50 WBC (3.8-10.6) k/uL Hgb (13.0-17.5) gm/dL Hct (39.0-53.0) % Neutrophils # (1.3-7.7) k/uL Lymphocytes # (1.0-4.8) k/uL Chloride (98-107) mmol/L BUN (9-20) mg/dL Glucose (74-99) mg/dL POC Glucose (mg/dL) 179 H 186 H 128 H (75-99) mg/dL Total Protein (6.3-8.2) g/dL Albumin (3.5-5.0) g/dL 06/07/27/18 07/27/18 Range/Units 09:27 09:27 11:53 WBC 15.4 H (3.8-10.6) k/uL Hgb 12.1 L (13.0-17.5) gm/dL Hct 38.7 L (39.0-53.0) % Neutrophils # 14.4 H (1.3-7.7) k/uL Lymphocytes # 0.5 L (1.0-4.8) k/uL Chloride 109 H (98-107) mmol/L BUN 21 H (9-20) mg/dL Glucose 124 H (74-99) mg/dL POC Glucose (mg/dL) 129 H (75-99) mg/dL Total Protein 5.5 L (6.3-8.2) g/dL Albumin 2.9 L (3.5-5.0) g/dL Microbiology - Last 24 Hours (Table) 07/26/18 07:30 Blood Culture - Preliminary Blood No Growth after 24 hours Assessment and Plan Plan: Assessment: 1 acute COPD exacerbation with secondary shortness of breath 2 right lower lobe pneumonia and the patient is a right basilar airspace disease on admission chest x-ray. 3 dyspnea and cough secondary to above 4 acid reflux 5 osteoarthritis 6 smoking Plan: Sputum culture has been sent and is pending at this time, blood culture showed no growth, continue current antibiotics with Rocephin and Zithromax, continue IV Solu-Medrol, nebulized bronchodilators. Some slight improvement in dyspnea, however still requiring supplemental oxygen, and quite dyspneic with exertion. No fever or chills, remains on nystatin swish and swallow. His chest x-ray has been reviewed, and showed no significant change from previous exam with airspace disease in the right lower lobe likely related to pneumonia. I performed a history & physical examination of the patient and discussed their management with my nurse practitioner, Marley Segura. I reviewed the nurse practitioner's note and agree with the documented findings and plan of care. Lung sounds are positive for wheezes throughout the lung rodriguez. The findings and the impression was discussed with the patient. I attest to the documentation by the nurse practitioner. Time with Patient: Less than 30
[2018-07-27 16:57] LABS: Glucose,Whole Blood 128 mg/dL (75-99)
[2018-07-27 21:41] LABS: Glucose,Whole Blood 151 mg/dL (75-99)
[2018-07-27] MEDS: ATORVASTATIN 10 MG TAB PO SCH (22:00)
[2018-07-27] MEDS: diphenhydrAMINE 25 MG CAP PO SCH (22:00)
[2018-07-27] MEDS: ASPIRIN 81 MG PO SCH (22:03)
[2018-07-28 07:03] LABS: Glucose,Whole Blood 118 mg/dL (75-99)
[2018-07-28] MEDS: IPRATROPIUM 0.5 MG/2.5 ML NEBU INHALATION SCH ×4 (07:14→20:36)
[2018-07-28] MEDS: SYMBICORT 160-4.5 MCG INHALER INHALATION SCH ×2 (07:14→20:33)
[2018-07-28] MEDS: VIT A,C & E-LUTEIN-MINERALS 1 EACH TAB PO SCH (08:09)
[2018-07-28] MEDS: PANTOPRAZOLE 40 MG TABLET PO SCH (08:09)
[2018-07-28] MEDS: HEPARIN SODIUM,PORCINE 5,000 UNIT/ML 1 ML VIAL SQ SCH ×2 (08:09→20:35)
[2018-07-28] MEDS: NICOTINE 14MG/24HR PATCH TRANSDERM SCH (08:09)
[2018-07-28] MEDS: AZITHROMYCIN 500 MG TAB PO SCH (08:09)
[2018-07-28] MEDS: NYSTATIN 100,000 UNIT/ML SUSP 500,000 UNIT/5 ML CUP PO SCH ×4 (08:09→20:35)
[2018-07-28] MEDS: CEFDINIR 300 MG CAP PO SCH ×2 (08:09→20:35)
[2018-07-28] MEDS: methylPREDNISolone SOD SUCCI 125 MG/2 ML VIAL IV SCH ×2 (08:10→16:33)
[2018-07-28] MEDS: INSULIN ASPART (NovoLOG) 100 UNIT/ML VIAL SQ SCH ×4 (08:10→20:36)
[2018-07-28 09:32] LABS: Basophils % (A) 0 %; Eosinophils % (A) 0 %; HCT 40.9 % (39.0-53.0); HGB 12.3 gm/dL (13.0-17.5); Hypochromasia Marked; Lymphocytes # (A) 0.5 k/uL (1.0-4.8); Lymphocytes % (A) 3 %; MCH 27.2 pg (25.0-35.0); MCHC 30.1 g/dL (31.0-37.0); MCV 90.3 fL (80.0-100.0); Mean Platelet Volume 7.5; Monocytes # (A) 0.3 k/uL (0-1.0); Monocytes % (A) 2 %; Neutrophils # (A) 14.6 k/uL (1.3-7.7); Neutrophils % (A) 94 %; Platelet Count 278 k/uL (150-450); RBC 4.53 m/uL (4.30-5.90); WBC 15.5 k/uL (3.8-10.6)
[2018-07-28 09:50] LABS: ALT 28 U/L (21-72); AST 48 U/L (17-59); African American GFR (CKD) >90 (>60 ml/min/1.73 sqM); Albumin 3.3 g/dL (3.5-5.0); Alkaline Phosphatase 63 U/L (38-126); Anion Gap 9 mmol/L; Blood Urea Nitrogen 25 mg/dL (9-20); Calcium 8.6 mg/dL (8.4-10.2); Carbon Dioxide 24 mmol/L (22-30); Chloride 110 mmol/L (98-107); Glucose 120 mg/dL (74-99); Potassium 4.2 mmol/L (3.5-5.1); Sodium 143 mmol/L (137-145); Total Bilirubin 0.4 mg/dL (0.2-1.3); Total Protein 6.1 g/dL (6.3-8.2)
--- NOTE | 2018-07-28 11:52 | P.PN ---
Subjective Progress Note Date: 07/28/18 This is a 67-year-old male patient of Dr. Lomas. Patient presented with complaints of increased shortness of breath. Patient reports that he woke up Tuesday with having increased shortness breath that progressively became worse throughout the day yesterday. Patient reports that he had some chest tightness with the coughing and congestion. Patient denies any significant cardiac history. Patient reports he does have history of COPD and current half pack smoker. Patient started on IV steroids IV antibiotics DuoNeb updraft breathing treatments. Repeat chest x-ray ordered. Pulmonary services have been consulted. Serial troponins and 2-D echo has been ordered. Sputum culture ordered. At this time patient reports significant improvement with shortness of breath. Patient denies any chest pain. Patient denies nausea vomiting or diarrhea. Patient denies any urinary burning or frequency On 07/27/2018 patient is alert and oriented 3 resting comfortably in bed. Patient does report improvement with shortness of breath and cough. Patient was able to provide sputum sample. Patient denies any chest pain or shortness of breath. Patient denies nausea vomiting or diarrhea. Patient denies any urinary burning or frequency. Pulmonary services are following. Patient remains on IV antibiotics and Solu-Medrol On 07/28/2018 patient is alert and oriented 3. Patient does state some im provement with shortness of breath. Patient still short of breath with activity. Patient remains on 2 L nasal cannula. Patient remains on antibiotics and Solu-Medrol. We'll continue to monitor. At this time patient denies chest pain or shortness of breath. Patient denies nausea vomiting or diarrhea. Patient denies any urinary burning or frequency Objective - Vital Signs Vital signs: Vital Signs Temp 97.8 F 07/28/18 05:55 Pulse 96 07/28/18 11:03 Resp 18 07/28/18 08:07 BP 142/81 07/28/18 05:55 Pulse Ox 95 07/28/18 07:15 Intake & Output 07/27/18 07/28/18 07/28/18 18:59 06:59 18:59 Intake Total 540 800 Balance 540 800 Intake: Intake, IV Titration 800 Amount Sodium Chloride 0.9% 1, 800 000 ml @ 100 mls/hr IV . Q10H FUAD Rx#:[id number] Oral 540 Other: # Voids 1 1 - Exam Head normocephalic Neck supple Lungs diminished bilaterally with expiratory wheezing Heart regular rate and rhythm S1-S2, no rub or gallop Abdomen is soft nontender nondistended positive bowel sounds no hepatosplenomegaly Extremities no edema Neuro alert and orientated to 3 - Labs CBC & Chem 7: 07/28/18 09:11 07/28/18 09:11 Labs: Abnormal Lab Results - Last 24 Hours (Table) 07/27/18 07/27/18 07/27/18 Range/Units 11:53 16:40 21:37 WBC (3.8-10.6) k/uL Hgb (13.0-17.5) gm/dL MCHC (31.0-37.0) g/dL RDW (11.5-15.5) % Neutrophils # (1.3-7.7) k/uL Lymphocytes # (1.0-4.8) k/uL Chloride (98-107) mmol/L BUN (9-20) mg/dL Glucose (74-99) mg/dL POC Glucose (mg/dL) 129 H 128 H 151 H (75-99) mg/dL Total Protein (6.3-8.2) g/dL Albumin (3.5-5.0) g/dL 07/28/18 07/28/18 07/28/18 Range/Units 06:51 09:11 09:11 WBC 15.5 H (3.8-10.6) k/uL Hgb 12.3 L (13.0-17.5) gm/dL MCHC 30.1 L (31.0-37.0) g/dL RDW 16.0 H (11.5-15.5) % Neutrophils # 14.6 H (1.3-7.7) k/uL Lymphocytes # 0.5 L (1.0-4.8) k/uL Chloride 110 H (98-107) mmol/L BUN 25 H (9-20) mg/dL Glucose 120 H (74-99) mg/dL POC Glucose (mg/dL) 118 H (75-99) mg/dL Total Protein 6.1 L (6.3-8.2) g/dL Albumin 3.3 L (3.5-5.0) g/dL Microbiology - Last 24 Hours (Table) 07/26/18 07:30 Blood Culture - Preliminary Blood No Growth after 48 hours 07/27/18 08:15 Gram Stain - Preliminary Sputum Assessment and Plan Assessment: 1. Shortness breath related to right lower lobe pneumonia and COPD exacerbation. Chest x-ray completed showing right basilar pneumonia, underlying COPD, and bronchial cuffing that may relate to active or infectious airway disease. Pulmonate services have been consulted. Sputum culture ordered repeat 2 view chest x-ray ordered. Patient started on DuoNeb, IV antibiotics and Solu- Medrol. 2. Chest tightness with coughing. EKG showing sinus tachycardia, possible left atrial enlargement. Likely pleuritic in nature. Troponins negative 3. 2-D echo completed showing an EF of 55-60% 3. Nicotine dependence. Patient educated longer than 3 minutes on smoking cessation. Nicotine patch ordered 4. COPD. Patient reports he does not follow with machine taper at this time 5. History of GERD 6. History of osteoarthritis 7. History of hernia repair 8. Oral thrush nystatin added per pulmonary DVyT prophylaxis heparin. GI prophylaxis I performed an examination of the patient and discussed their management with the Nurse Practitioner. I have reviewed the Nurse Practitioner's notes and agree with the documented findings and plan of care
[2018-07-28 11:53] LABS: Glucose,Whole Blood 124 mg/dL (75-99)
[2018-07-28] MEDS: SODIUM CHLORIDE 0.9% 1,000 ML IV SCH (12:43)
--- NOTE | 2018-07-28 13:28 | P.PN ---
Subjective Progress Note Date: 07/28/18 Principal diagnosis: Acute COPD exacerbation, right lower lobe pneumonia 67-year-old male patient coming into the hospital because of worsening shortness of breath. The patient has been progressively getting short of breath over the past 3 days. Presented to the hospital because of increased dyspnea cough chest tightness chest wheezing and chest congestion. Chest x-ray showed a limited right basilar pulmonary infiltrates suspicious for an underlying pneumonia. The patient is known to have COPD and is a chronic smoker and smokes one half pack of cigarettes a day. For all this reason a pulmonary consultation was requested. His influenza screen was negative. White cell count is not elevated. Aggressive blood work and electrodes are all within normal limits. Currently the patient on a combination of bronchodilators and steroids and he is also covered with a combination of Rocephin and Zithromax. He is on IV Solu Medrol 60 mg every 6 hours. He is on IV fluids with normal saline today to 100 mL an hour. EKG showing sinus tachycardia. On 07/27/2018 patient was seen in follow-up on medical surgical floor. Still dyspneic, and wheezy, but overall is improving, he was able to get up and take a shower, requiring frequent rest, remains on supplemental oxygen, he is on 3 L of oxygen with a pulse ox of 92%. Afebrile, hemodynamically stable, sputum specimen was sent for culture, and is pending at this time, blood culture showed no growth. The coverage in the form of Zithromax and Rocephin, steroids, and nebulized bronchodilators. His chest x-ray has been reviewed, showing similar findings to the previous exam, prominent lung volumes reflecting the hem idiaphragms consistent with underlying COPD, interstitial changes, and airspace disease towards the level of the right costophrenic angle. Hemodynamically stable, breathing easier, no fever or chills. No hemoptysis. No Chest pain. Today's labs have been reviewed, showing white blood cell, 15.4, hemoglobin 12.1, serum sodium is 141, potassium is 0.5, chloride is 109, CO2 is 25, B1 of 21 creatinine 0.95 On 07/28/2018 patient seen in follow-up on medical surgical floor. He is improving, less bronchospastic, still dyspneic with exertion, still on supplemental oxygen down to 2 L, with a pulse ox of 95%, afebrile. Blood and sputum cultures are pending, no fever or chills, yesterday swallow chest x-ray did not show significant change in those airspace disease right lower lobe, likely due to pneumonia. Likely improving, will continue with current antibiotic coverage, patient is on a combination of Zithromax and oral Omnicef, he is on IV steroids and breathing treatments. Objective - Vital Signs Vital signs: Vital Signs Temp 98.2 F 07/28/18 12:30 Pulse 88 07/28/18 12:30 Resp 18 07/28/18 12:30 BP 130/76 07/28/18 12:30 Pulse Ox 95 07/28/18 12:30 Intake & Output 07/27/18 07/28/18 07/28/18 18:59 06:59 18:59 Intake Total 540 800 Balance 540 800 Intake: Intake, IV Titration 800 Amount Sodium Chloride 0.9% 1, 800 000 ml @ 100 mls/hr IV . Q10H FUAD Rx#:[id number] Oral 540 Other: # Voids 1 1 - Exam GENERAL EXAM: Alert, pleasant, 67-year-old white male, comfortable in no apparent distress. HEAD: Normocephalic/atraumatic. EYES: Normal reaction of pupils, equal size. Conjunctiva pink, sclera white. NOSE: Clear with pink turbinates. THROAT: No erythema or exudates. NECK: No masses, no JVD, no thyroid enlargement, no adenopathy. CHEST: No chest wall deformity. Symmetrical expansion. LUNGS: Equal air entry with diminished breath sounds, expiratory wheezes CVS: Regular rate and rhythm, normal S1 and S2, no gallops, no murmurs, no rubs ABDOMEN: Soft, nontender. No hepatosplenomegaly, normal bowel sounds, no guarding or rigidity. EXTREMITIES: No clubbing, no edema, no cyanosis, 2+ pulses and upper and lower extremities. MUSCULOSKELETAL: Muscle strength and tone normal. SPINE: No scoliosis or deformity SKIN: No rashes CENTRAL NERVOUS SYSTEM: Alert and oriented -3. No focal deficits, tone is normal in all 4 extremities. PSYCHIATRIC: Alert and oriented -3. Appropriate affect. Intact judgment and insight. - Labs CBC & Chem 7: 07/28/18 09:11 07/28/18 09:11 Labs: Abnormal Lab Results - Last 24 Hours (Table) 07/27/18 07/27/18 07/28/18 Range/Units 16:40 21:37 06:51 WBC (3.8-10.6) k/uL Hgb (13.0-17.5) gm/dL MCHC (31.0-37.0) g/dL RDW (11.5-15.5) % Neutrophils # (1.3-7.7) k/uL Lymphocytes # (1.0-4.8) k/uL Chloride (98-107) mmol/L BUN (9-20) mg/dL Glucose (74-99) mg/dL POC Glucose (mg/dL) 128 H 151 H 118 H (75-99) mg/dL Total Protein (6.3-8.2) g/dL Albumin (3.5-5.0) g/dL 07/28/18 07/28/18 07/28/18 Range/Units 09:11 09:11 11:52 WBC 15.5 H (3.8-10.6) k/uL Hgb 12.3 L (13.0-17.5) gm/dL MCHC 30.1 L (31.0-37.0) g/dL RDW 16.0 H (11.5-15.5) % Neutrophils # 14.6 H (1.3-7.7) k/uL Lymphocytes # 0.5 L (1.0-4.8) k/uL Chloride 110 H (98-107) mmol/L BUN 25 H (9-20) mg/dL Glucose 120 H (74-99) mg/dL POC Glucose (mg/dL) 124 H (75-99) mg/dL Total Protein 6.1 L (6.3-8.2) g/dL Albumin 3.3 L (3.5-5.0) g/dL Microbiology - Last 24 Hours (Table) 07/26/18 07:30 Blood Culture - Preliminary Blood No Growth after 48 hours 07/27/18 08:15 Gram Stain - Preliminary Sputum Assessment and Plan Plan: Assessment: 1 acute COPD exacerbation with secondary shortness of breath 2 right lower lobe pneumonia and the patient is a right basilar airspace disease on admission chest x-ray. 3 dyspnea and cough secondary to above 4 acid reflux 5 osteoarthritis 6 smoking Plan: Continue current antibiotic coverage, nebulized bronchodilators, IV steroids, Mucinex, is slowly improving, in no acute distress, still bronchospastic and wheezy, requiring supplemental oxygen, not quite ready for discharge. We'll continue with current inpatient treatment. I performed a history & physical examination of the patient and discussed their management with my nurse practitioner, Marley Segura. I reviewed the nurse practitioner's note and agree with the documented findings and plan of care. Lung sounds are positive for wheezes throughout the lung rodriguez. The findings and the impression was discussed with the patient. I attest to the documentati on by the nurse practitioner. Time with Patient: Less than 30
[2018-07-28 17:17] LABS: Glucose,Whole Blood 121 mg/dL (75-99)
[2018-07-28 20:29] LABS: Glucose,Whole Blood 123 mg/dL (75-99)
[2018-07-28] MEDS: IPRATROPIUM-ALBUTEROL 3 ML NEB INHALATION PRN (20:33)
[2018-07-28] MEDS: diphenhydrAMINE 25 MG CAP PO SCH (20:35)
[2018-07-28] MEDS: ATORVASTATIN 10 MG TAB PO SCH (20:35)
[2018-07-28] MEDS: ASPIRIN 81 MG PO SCH (20:35)
[2018-07-29] MEDS: methylPREDNISolone SOD SUCCI 125 MG/2 ML VIAL IV SCH ×4 (00:12→23:02)
[2018-07-29 07:08] LABS: Glucose,Whole Blood 116 mg/dL (75-99)
[2018-07-29] MEDS: INSULIN ASPART (NovoLOG) 100 UNIT/ML VIAL SQ SCH ×4 (07:17→21:13)
[2018-07-29] MEDS: PANTOPRAZOLE 40 MG TABLET PO SCH (07:26)
[2018-07-29] MEDS: NICOTINE 14MG/24HR PATCH TRANSDERM SCH (07:26)
[2018-07-29] MEDS: AZITHROMYCIN 500 MG TAB PO SCH (07:26)
[2018-07-29] MEDS: VIT A,C & E-LUTEIN-MINERALS 1 EACH TAB PO SCH (07:27)
[2018-07-29] MEDS: CEFDINIR 300 MG CAP PO SCH ×2 (07:27→20:53)
[2018-07-29] MEDS: NYSTATIN 100,000 UNIT/ML SUSP 500,000 UNIT/5 ML CUP PO SCH ×4 (07:27→20:53)
[2018-07-29] MEDS: HEPARIN SODIUM,PORCINE 5,000 UNIT/ML 1 ML VIAL SQ SCH ×2 (07:27→20:53)
[2018-07-29] MEDS: IPRATROPIUM-ALBUTEROL 3 ML NEB INHALATION PRN ×5 (07:44→19:03)
[2018-07-29] MEDS: SYMBICORT 160-4.5 MCG INHALER INHALATION SCH ×2 (07:44→19:03)
[2018-07-29] MEDS: IPRATROPIUM 0.5 MG/2.5 ML NEBU INHALATION SCH ×4 (08:00→19:04)
[2018-07-29 08:54] LABS: Basophils % (A) 0 %; Eosinophils % (A) 0 %; HCT 38.7 % (39.0-53.0); HGB 11.9 gm/dL (13.0-17.5); Hypochromasia Slight; Lymphocytes # (A) 0.6 k/uL (1.0-4.8); Lymphocytes % (A) 7 %; MCH 27.3 pg (25.0-35.0); MCHC 30.7 g/dL (31.0-37.0); MCV 89.2 fL (80.0-100.0); Monocytes # (A) 0.2 k/uL (0-1.0); Monocytes % (A) 2 %; Neutrophils # (A) 8.8 k/uL (1.3-7.7); Neutrophils % (A) 91 %; Platelet Count 293 k/uL (150-450); RBC 4.34 m/uL (4.30-5.90); RDW 15.1 % (11.5-15.5); WBC 9.7 k/uL (3.8-10.6)
[2018-07-29 09:09] LABS: ALT 40 U/L (21-72); AST 42 U/L (17-59); African American GFR (CKD) >90 (>60 ml/min/1.73 sqM); Alkaline Phosphatase 59 U/L (38-126); Anion Gap 6 mmol/L; Blood Urea Nitrogen 25 mg/dL (9-20); Calcium 8.8 mg/dL (8.4-10.2); Carbon Dioxide 26 mmol/L (22-30); Chloride 109 mmol/L (98-107); Glucose 150 mg/dL (74-99); Potassium 5.1 mmol/L (3.5-5.1); Sodium 141 mmol/L (137-145); Total Bilirubin 0.5 mg/dL (0.2-1.3); Total Protein 5.8 g/dL (6.3-8.2)
[2018-07-29 11:31] LABS: Glucose,Whole Blood 123 mg/dL (75-99)
--- NOTE | 2018-07-29 14:02 | P.PN ---
Subjective Progress Note Date: 07/29/18 On 07/29/2018 the patient is slightly improved compared to yesterday. Less bronchospastic/wheezy and he is ambulating in the hallway. Pulse ox is 95% 2 L. No chest pain. No thrush. No pleurisy. No hemoptysis. He is improving slowly. He is on IV Solu-Medrol 60 mg every 8 hours. He is on Symbicort. He is on DuoNeb nebulized treatments around the clock. He is on Omnicef. He is also on nicotine patch. Objective - Vital Signs Vital signs: Vital Signs Temp 97.4 F L 07/29/18 12:34 Pulse 96 07/29/18 12:34 Resp 18 07/29/18 12:34 BP 138/72 07/29/18 12:34 Pulse Ox 94 L 07/29/18 12:34 Intake & Output 07/28/18 07/29/18 07/29/18 18:59 06:59 18:59 Intake Total 240 700 Balance 240 700 Intake: Oral 240 700 Other: # Voids 2 3 2 # Bowel Movements 0 1 1 - Exam GENERAL EXAM: Alert, pleasant, 67-year-old white male, comfortable in no apparent distress. HEAD: Normocephalic/atraumatic. EYES: Normal reaction of pupils, equal size. Conjunctiva pink, sclera white. NOSE: Clear with pink turbinates. THROAT: No erythema or exudates. NECK: No masses, no JVD, no thyroid enlargement, no adenopathy. CHEST: No chest wall deformity. Symmetrical expansion. LUNGS: Equal air entry with diminished breath sounds, expiratory wheezes CVS: Regular rate and rhythm, normal S1 and S2, no gallops, no murmurs, no rubs ABDOMEN: Soft, nontender. No hepatosplenomegaly, normal bowel sounds, no guarding or rigidity. EXTREMITIES: No clubbing, no edema, no cyanosis, 2+ pulses and upper and lower extremities. MUSCULOSKELETAL: Muscle strength and tone normal. SPINE: No scoliosis or deformity SKIN: No rashes CENTRAL NERVOUS SYSTEM: Alert and oriented -3. No focal deficits, tone is normal in all 4 extremities. PSYCHIATRIC: Alert and oriented -3. Appropriate affect. Intact judgment and insight. - Labs CBC & Chem 7: 07/29/18 08:25 07/29/18 08:25 Labs: Abnormal Lab Results - Last 24 Hours (Table) 07/28/18 07/28/18 07/29/18 Range/Units 17:06 20:18 07:02 Hgb (13.0-17.5) gm/dL Hct (39.0-53.0) % MCHC (31.0-37.0) g/dL Neutrophils # (1.3-7.7) k/uL Lymphocytes # (1.0-4.8) k/uL Chloride (98-107) mmol/L BUN (9-20) mg/dL Glucose (74-99) mg/dL POC Glucose (mg/dL) 121 H 123 H 116 H (75-99) mg/dL Total Protein (6.3-8.2) g/dL Albumin (3.5-5.0) g/dL 07/29/18 07/29/18 07/29/18 Range/Units 08:25 08:25 11:15 Hgb 11.9 L (13.0-17.5) gm/dL Hct 38.7 L (39.0-53.0) % MCHC 30.7 L (31.0-37.0) g/dL Neutrophils # 8.8 H (1.3-7.7) k/uL Lymphocytes # 0.6 L (1.0-4.8) k/uL Chloride 109 H (98-107) mmol/L BUN 25 H (9-20) mg/dL Glucose 150 H (74-99) mg/dL POC Glucose (mg/dL) 123 H (75-99) mg/dL Total Protein 5.8 L (6.3-8.2) g/dL Albumin 3.0 L (3.5-5.0) g/dL Microbiology - Last 24 Hours (Table) 07/27/18 08:15 Gram Stain - Final Sputum Sputum Culture - Final Corynebacterium striatum 07/26/18 07:30 Blood Culture - Preliminary Blood No Growth after 72 hours Assessment and Plan Plan: 1 acute COPD exacerbation with secondary shortness of breath, improving slowly 2 right lower lobe pneumonia and the patient is a right basilar airspace disease on admission chest x-ray. 3 dyspnea and cough secondary to above 4 acid reflux 5 osteoarthritis 6 smoking Plan Continue same treatment. Possible discharge within next 24-48 hours depending on his progress. Continued IV Solu Medrol for another 24 hours.
--- NOTE | 2018-07-29 15:24 | P.PN ---
Subjective Progress Note Date: 07/29/18 This is a 67-year-old male patient of Dr. Lomas. Patient presented with complaints of increased shortness of breath. Patient reports that he woke up Tuesday with having increased shortness breath that progressively became worse throughout the day yesterday. Patient reports that he had some chest tightness with the coughing and congestion. Patient denies any significant cardiac history. Patient reports he does have history of COPD and current half pack smoker. Patient started on IV steroids IV antibiotics DuoNeb updraft breathing treatments. Repeat chest x-ray ordered. Pulmonary services have been consulted. Serial troponins and 2-D echo has been ordered. Sputum culture ordered. At this time patient reports significant improvement with shortness of breath. Patient denies any chest pain. Patient denies nausea vomiting or diarrhea. Patient denies any urinary burning or frequency On 07/27/2018 patient is alert and oriented 3 resting comfortably in bed. Patient does report improvement with shortness of breath and cough. Patient was able to provide sputum sample. Patient denies any chest pain or shortness of breath. Patient denies nausea vomiting or diarrhea. Patient denies any urinary burning or frequency. Pulmonary services are following. Patient remains on IV antibiotics and Solu-Medrol On 07/28/2018 patient is alert and oriented 3. Patient does state some im provement with shortness of breath. Patient still short of breath with activity. Patient remains on 2 L nasal cannula. Patient remains on antibiotics and Solu-Medrol. We'll continue to monitor. At this time patient denies chest pain or shortness of breath. Patient denies nausea vomiting or diarrhea. Patient denies any urinary burning or frequency On 07/29/2018 patient was seen and examined on the medical floor he is alert and oriented 3 in no apparent distress he is still complaining of significant shortness of breath with any activity he is complaining of occasional cough otherwise he denies any complaints there is no fever or chills no headache or dizziness no chest pain no nausea or vomiting no abdominal pain no diarrhea and no urinary symptoms Objective - Vital Signs Vital signs: Vital Signs Temp 97.4 F L 07/29/18 12:34 Pulse 82 07/29/18 15: Resp 18 07/29/18 12:34 BP 138/72 07/29/18 12:34 Pulse Ox 94 L 06/15/19 12:34 Intake & Output 07/28/18 07/29/18 07/29/18 18:59 06:59 18:59 Intake Total 240 700 Balance 240 700 Intake: Oral 240 700 Other: # Voids 2 3 2 # Bowel Movements 0 1 1 - Exam In general patient is alert and oriented 3 in no apparent distress Head normocephalic and atraumatic Neck supple no JVD no goiter Lungs diminished bilaterally with expiratory wheezing Heart regular rate and rhythm S1-S2, no rub or gallop Abdomen is soft nontender nondistended positive bowel sounds no hepatosplenomegaly Extremities no edema no cyanosis or clubbing Neuro no gross focal neurological deficit - Labs CBC & Chem 7: 07/29/18 08:25 07/29/18 08:25 Labs: Abnormal Lab Results - Last 24 Hours (Table) 07/28/18 07/28/18 07/29/18 Range/Units 17:06 20:18 07:02 Hgb (13.0-17.5) gm/dL Hct (39.0-53.0) % MCHC (31.0-37.0) g/dL Neutrophils # (1.3-7.7) k/uL Lymphocytes # (1.0-4.8) k/uL Chloride (98-107) mmol/L BUN (9-20) mg/dL Glucose (74-99) mg/dL POC Glucose (mg/dL) 121 H 123 H 116 H (75-99) mg/dL Total Protein (6.3-8.2) g/dL Albumin (3.5-5.0) g/dL 07/29/18 07/29/18 07/29/18 Range/Units 08:25 08:25 11:15 Hgb 11.9 L (13.0-17.5) gm/dL Hct 38.7 L (39.0-53.0) % MCHC 30.7 L (31.0-37.0) g/dL Neutrophils # 8.8 H (1.3-7.7) k/uL Lymphocytes # 0.6 L (1.0-4.8) k/uL Chloride 109 H (98-107) mmol/L BUN 25 H (9-20) mg/dL Glucose 150 H (74-99) mg/dL POC Glucose (mg/dL) 123 H (75-99) mg/dL Total Protein 5.8 L (6.3-8.2) g/dL Albumin 3.0 L (3.5-5.0) g/dL Microbiology - Last 24 Hours (Table) 07/27/18 08:15 Gram Stain - Final Sputum Sputum Culture - Final Corynebacterium striatum 07/26/18 07:30 Blood Culture - Preliminary Blood No Growth after 72 hours Assessment and Plan Plan: 1. Shortness breath related to right lower lobe pneumonia and COPD exacerbation. Chest x-ray completed showing right basilar pneumonia, underlying COPD, and bronchial cuffing that may relate to active or infectious airway disease. Pulmonate services have been consulted. Sputum culture ordered repeat 2 view chest x-ray ordered. Patient started on DuoNeb, IV antibiotics and Solu- Medrol. 2. Chest tightness with coughing. EKG showing sinus tachycardia, possible left atrial enlargement. Likely pleuritic in nature. Troponins negative 3. 2-D echo completed showing an EF of 55-60% 3. Nicotine dependence. Patient educated longer than 3 minutes on smoking cessation. Nicotine patch ordered 4. COPD. 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 History of GERD 6. History of osteoarthritis 7. History of hernia repair 8. Oral thrush nystatin added per pulmonary DVT prophylaxis heparin. GI prophylaxis Today patient was seen and examined Medication and labs were reviewed Input from consult on Dr. Segal reviewed Continue current care will follow in a.m.
[2018-07-29 17:05] LABS: Glucose,Whole Blood 117 mg/dL (75-99)
[2018-07-29] MEDS: ATORVASTATIN 10 MG TAB PO SCH (20:52)
[2018-07-29] MEDS: diphenhydrAMINE 25 MG CAP PO SCH (20:52)
[2018-07-29] MEDS: ASPIRIN 81 MG PO SCH (20:53)
[2018-07-29 21:10] LABS: Glucose,Whole Blood 143 mg/dL (75-99)
[2018-07-30] MEDS: AZITHROMYCIN 500 MG TAB PO SCH (07:05)
[2018-07-30] MEDS: methylPREDNISolone SOD SUCCI 125 MG/2 ML VIAL IV SCH ×2 (07:05→17:36)
[2018-07-30] MEDS: CEFDINIR 300 MG CAP PO SCH ×2 (07:05→21:41)
[2018-07-30] MEDS: PANTOPRAZOLE 40 MG TABLET PO SCH (07:05)
[2018-07-30] MEDS: HEPARIN SODIUM,PORCINE 5,000 UNIT/ML 1 ML VIAL SQ SCH ×2 (07:05→21:41)
[2018-07-30] MEDS: VIT A,C & E-LUTEIN-MINERALS 1 EACH TAB PO SCH (07:06)
[2018-07-30] MEDS: NICOTINE 14MG/24HR PATCH TRANSDERM SCH (07:06)
[2018-07-30] MEDS: NYSTATIN 100,000 UNIT/ML SUSP 500,000 UNIT/5 ML CUP PO SCH ×4 (07:06→21:41)
[2018-07-30] MEDS: guaiFENesin 600 MG TABLET.ER PO PRN ×2 (07:12→21:43)
[2018-07-30 07:42] LABS: Glucose,Whole Blood 109 mg/dL (75-99)
[2018-07-30] MEDS: INSULIN ASPART (NovoLOG) 100 UNIT/ML VIAL SQ SCH ×4 (08:10→21:42)
[2018-07-30 08:17] LABS: ALT 67 U/L (21-72); AST 50 U/L (17-59); African American GFR (CKD) >90 (>60 ml/min/1.73 sqM); Albumin 3.1 g/dL (3.5-5.0); Alkaline Phosphatase 49 U/L (38-126); Anion Gap 6 mmol/L; Blood Urea Nitrogen 24 mg/dL (9-20); Calcium 8.7 mg/dL (8.4-10.2); Carbon Dioxide 27 mmol/L (22-30); Chloride 107 mmol/L (98-107); Glucose 113 mg/dL (74-99); Sodium 140 mmol/L (137-145); Total Bilirubin 0.6 mg/dL (0.2-1.3); Total Protein 5.9 g/dL (6.3-8.2)
[2018-07-30] MEDS: IPRATROPIUM 0.5 MG/2.5 ML NEBU INHALATION SCH ×4 (08:18→21:14)
[2018-07-30] MEDS: IPRATROPIUM-ALBUTEROL 3 ML NEB INHALATION PRN ×3 (08:18→15:10)
[2018-07-30] MEDS: SYMBICORT 160-4.5 MCG INHALER INHALATION SCH ×2 (08:18→21:14)
[2018-07-30 08:36] LABS: Basophils % (A) 0 %; Eosinophils % (A) 0 %; HCT 39.6 % (39.0-53.0); HGB 12.5 gm/dL (13.0-17.5); Hypochromasia Moderate; Lymphocytes # (A) 0.6 k/uL (1.0-4.8); Lymphocytes % (A) 8 %; MCH 27.8 pg (25.0-35.0); MCHC 31.5 g/dL (31.0-37.0); MCV 88.3 fL (80.0-100.0); Mean Platelet Volume 7.5; Monocytes # (A) 0.3 k/uL (0-1.0); Monocytes % (A) 5 %; Neutrophils # (A) 5.9 k/uL (1.3-7.7); Neutrophils % (A) 86 %; Platelet Count 281 k/uL (150-450); RBC 4.49 m/uL (4.30-5.90); RDW 15.6 % (11.5-15.5); WBC 6.9 k/uL (3.8-10.6)
--- NOTE | 2018-07-30 10:57 | P.PN ---
Subjective Progress Note Date: 07/30/18 This is a 67-year-old male patient of Dr. Lomas. Patient presented with complaints of increased shortness of breath. Patient reports that he woke up Tuesday with having increased shortness breath that progressively became worse throughout the day yesterday. Patient reports that he had some chest tightness with the coughing and congestion. Patient denies any significant cardiac history. Patient reports he does have history of COPD and current half pack smoker. Patient started on IV steroids IV antibiotics DuoNeb updraft breathing treatments. Repeat chest x-ray ordered. Pulmonary services have been consulted. Serial troponins and 2-D echo has been ordered. Sputum culture ordered. At this time patient reports significant improvement with shortness of breath. Patient denies any chest pain. Patient denies nausea vomiting or diarrhea. Patient denies any urinary burning or frequency On 07/27/2018 patient is alert and oriented 3 resting comfortably in bed. Patient does report improvement with shortness of breath and cough. Patient was able to provide sputum sample. Patient denies any chest pain or shortness of breath. Patient denies nausea vomiting or diarrhea. Patient denies any urinary burning or frequency. Pulmonary services are following. Patient remains on IV antibiotics and Solu-Medrol On 07/28/2018 patient is alert and oriented 3. Patient does state some im provement with shortness of breath. Patient still short of breath with activity. Patient remains on 2 L nasal cannula. Patient remains on antibiotics and Solu-Medrol. We'll continue to monitor. At this time patient denies chest pain or shortness of breath. Patient denies nausea vomiting or diarrhea. Patient denies any urinary burning or frequency On 07/29/2018 patient was seen and examined on the medical floor he is alert and oriented 3 in no apparent distress he is still complaining of significant shortness of breath with any activity he is complaining of occasional cough otherwise he denies any complaints there is no fever or chills no headache or dizziness no chest pain no nausea or vomiting no abdominal pain no diarrhea and no urinary symptoms. On 07/30/2018 patient is feeling better he is alert and oriented 3, he is still complaining of cough and complaining of shortness of breath with activity otherwise he denies any complaints there is no fever or chills no chest pain, no nausea or vomiting no abdominal pain no diarrhea and no urinary symptoms. Objective - Vital Signs Vital signs: Vital Signs Temp 97.3 F L 07/30/18 05:45 Pulse 86 07/30/18 08:31 Resp 20 07/30/18 05:45 BP 166/91 07/30/18 05:45 Pulse Ox 94 L 07/30/18 08:21 Intake & Output 07/29/18 07/30/18 07/30/18 18:59 06:59 18:59 Intake Total 350 Balance 350 Intake: Oral 350 Other: # Voids 2 1 1 # Bowel Movements 1 1 - Exam In general patient is alert and oriented 3 in no apparent distress Head normocephalic and atraumatic Neck supple no JVD no goiter Lungs diminished bilaterally with expiratory wheezing Heart regular rate and rhythm S1-S2, no rub or gallop Abdomen is soft nontender nondistended positive bowel sounds no hepatosplenomegaly Extremities no edema no cyanosis or clubbing Neuro no gross focal neurological deficit - Labs CBC & Chem 7: 07/30/18 07:38 07/30/18 07:38 Labs: Abnormal Lab Results - Last 24 Hours (Table) 07/29/18 07/29/18 07/29/18 Range/Units 11:15 17:00 21:08 Hgb (13.0-17.5) gm/dL RDW (11.5-15.5) % Lymphocytes # (1.0-4.8) k/uL BUN (9-20) mg/dL Glucose (74-99) mg/dL POC Glucose (mg/dL) 123 H 117 H 143 H (75-99) mg/dL Total Protein (6.3-8.2) g/dL Albumin (3.5-5.0) g/dL 07/30/18 07/30/18 07/30/18 Range/Units 07:38 07:38 07:39 Hgb 12.5 L (13.0-17.5) gm/dL RDW 15.6 H (11.5-15.5) % Lymphocytes # 0.6 L (1.0-4.8) k/uL BUN 24 H (9-20) mg/dL Glucose 113 H (74-99) mg/dL POC Glucose (mg/dL) 109 H (75-99) mg/dL Total Protein 5.9 L (6.3-8.2) g/dL Albumin 3.1 L (3.5-5.0) g/dL Microbiology - Last 24 Hours (Table) 07/26/18 07:30 Blood Culture - Preliminary Blood No Growth after 96 hours 07/27/18 08:15 Gram Stain - Final Sputum Sputum Culture - Final Corynebacterium striatum Assessment and Plan Plan: 1. Shortness breath related to right lower lobe pneumonia and COPD exacerbation. Chest x-ray completed showing right basilar pneumonia, underlying COPD, and bronchial cuffing that may relate to active or infectious airway disease. Pulmonate services have been consulted. Sputum culture ordered repeat 2 view chest x-ray ordered. Patient started on DuoNeb, IV antibiotics and Solu- Medrol. 2. Chest tightness with coughing. EKG showing sinus tachycardia, possible left atrial enlargement. Likely pleuritic in nature. Troponins negative 3. 2-D echo completed showing an EF of 55-60% 3. Nicotine dependence. Patient educated longer than 3 minutes on smoking cessation. Nicotine patch ordered 4. COPD. 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 History of GERD 6. History of osteoarthritis 7. History of hernia repair 8. Oral thrush nystatin added per pulmonary DVT prophylaxis heparin. GI prophylaxis Today patient was seen and examined Medication and labs were reviewed Input from consult on Dr. Segal reviewed At this time patient will be switched to oral antibiotics, Will monitor for 24 hours, recheck chest x-ray in a.m. tomorrow if stable patient can be discharged to home tomorrow
--- NOTE | 2018-07-30 11:32 | P.PN ---
Subjective Progress Note Date: 07/30/18 On today's evaluation the patient is feeling less short of breath more active and is emanating in the hallway. No chest pain. Less bronchospastic and wheezy. No other significant events overnight. Objective - Vital Signs Vital signs: Vital Signs Temp 97.3 F L 07/30/18 05:45 Pulse 86 07/30/18 08:31 Resp 20 07/30/18 05:45 BP 166/91 07/30/18 05:45 Pulse Ox 94 L 07/30/18 08:21 Intake & Output 07/29/18 07/30/18 07/30/18 18:59 06:59 18:59 Intake Total 350 Balance 350 Intake: Oral 350 Other: # Voids 2 1 1 # Bowel Movements 1 1 - Exam GENERAL EXAM: Alert, pleasant, 67-year-old white male, comfortable in no appare nt distress. HEAD: Normocephalic/atraumatic. EYES: Normal reaction of pupils, equal size. Conjunctiva pink, sclera white. NOSE: Clear with pink turbinates. THROAT: No erythema or exudates. NECK: No masses, no JVD, no thyroid enlargement, no adenopathy. CHEST: No chest wall deformity. Symmetrical expansion. LUNGS: Equal air entry with diminished breath sounds, expiratory wheezes CVS: Regular rate and rhythm, normal S1 and S2, no gallops, no murmurs, no rubs ABDOMEN: Soft, nontender. No hepatosplenomegaly, normal bowel sounds, no guarding or rigidity. EXTREMITIES: No clubbing, no edema, no cyanosis, 2+ pulses and upper and lower extremities. MUSCULOSKELETAL: Muscle strength and tone normal. SPINE: No scoliosis or deformity SKIN: No rashes CENTRAL NERVOUS SYSTEM: Alert and oriented -3. No focal deficits, tone is normal in all 4 extremities. PSYCHIATRIC: Alert and oriented -3. Appropriate affect. Intact judgment and insight. - Labs CBC & Chem 7: 07/30/18 07:38 07/30/18 07:38 Labs: Abnormal Lab Results - Last 24 Hours (Table) 07/29/18 07/29/18 07/29/18 Range/Units 11:15 17:00 21:08 Hgb (13.0-17.5) gm/dL RDW (11.5-15.5) % Lymphocytes # (1.0-4.8) k/uL BUN (9-20) mg/dL Glucose (74-99) mg/dL POC Glucose (mg/dL) 123 H 117 H 143 H (75-99) mg/dL Total Protein (6.3-8.2) g/dL Albumin (3.5-5.0) g/dL 07/30/18 07/30/18 07/30/18 Range/Units 07:38 07:38 07:39 Hgb 12.5 L (13.0-17.5) gm/dL RDW 15.6 H (11.5-15.5) % Lymphocytes # 0.6 L (1.0-4.8) k/uL BUN 24 H (9-20) mg/dL Glucose 113 H (74-99) mg/dL POC Glucose (mg/dL) 109 H (75-99) mg/dL Total Protein 5.9 L (6.3-8.2) g/dL Albumin 3.1 L (3.5-5.0) g/dL Microbiology - Last 24 Hours (Table) 07/26/18 07:30 Blood Culture - Preliminary Blood No Growth after 96 hours 07/27/18 08:15 Gram Stain - Final Sputum Sputum Culture - Final Corynebacterium striatum Assessment and Plan Plan: 1 acute COPD exacerbation with secondary shortness of breath, improving slowly 2 right lower lobe pneumonia and the patient is a right basilar airspace disease on admission chest x-ray. 3 dyspnea and cough secondary to above 4 acid reflux 5 osteoarthritis 6 smoking Plan Switch to oral antibiotics. Discharge in a.m.
[2018-07-30 11:56] LABS: Glucose,Whole Blood 119 mg/dL (75-99)
[2018-07-30 16:59] LABS: Glucose,Whole Blood 113 mg/dL (75-99)
[2018-07-30 20:24] LABS: Glucose,Whole Blood 150 mg/dL (75-99)
[2018-07-30] MEDS: ASPIRIN 81 MG PO SCH (21:42)
[2018-07-30] MEDS: diphenhydrAMINE 25 MG CAP PO SCH (21:42)
[2018-07-30] MEDS: ATORVASTATIN 10 MG TAB PO SCH (21:42)
[2018-07-31] MEDS: methylPREDNISolone SOD SUCCI 125 MG/2 ML VIAL IV SCH ×2 (00:14→07:44)
[2018-07-31 07:12] LABS: Glucose,Whole Blood 112 mg/dL (75-99)
[2018-07-31] MEDS: IPRATROPIUM 0.5 MG/2.5 ML NEBU INHALATION SCH ×2 (07:13→10:46)
[2018-07-31] MEDS: INSULIN ASPART (NovoLOG) 100 UNIT/ML VIAL SQ SCH ×2 (07:13→11:29)
[2018-07-31] MEDS: SYMBICORT 160-4.5 MCG INHALER INHALATION SCH (07:13)
[2018-07-31] MEDS: AZITHROMYCIN 500 MG TAB PO SCH (07:44)
[2018-07-31] MEDS: NICOTINE 14MG/24HR PATCH TRANSDERM SCH (07:44)
[2018-07-31] MEDS: HEPARIN SODIUM,PORCINE 5,000 UNIT/ML 1 ML VIAL SQ SCH (07:44)
[2018-07-31] MEDS: PANTOPRAZOLE 40 MG TABLET PO SCH (07:44)
[2018-07-31] MEDS: NYSTATIN 100,000 UNIT/ML SUSP 500,000 UNIT/5 ML CUP PO SCH ×2 (07:46→12:13)
[2018-07-31] MEDS: VIT A,C & E-LUTEIN-MINERALS 1 EACH TAB PO SCH (07:46)
[2018-07-31 08:15] VITALS: TEMP 97.7
[2018-07-31 09:33] LABS: Basophils % (A) 0 %; Eosinophils % (A) 0 %; HCT 40.4 % (39.0-53.0); HGB 12.5 gm/dL (13.0-17.5); Hypochromasia Slight; Lymphocytes # (A) 0.6 k/uL (1.0-4.8); Lymphocytes % (A) 7 %; MCHC 30.8 g/dL (31.0-37.0); MCV 87.6 fL (80.0-100.0); Mean Platelet Volume 7.4; Monocytes # (A) 0.4 k/uL (0-1.0); Monocytes % (A) 4 %; Neutrophils # (A) 7.5 k/uL (1.3-7.7); Neutrophils % (A) 88 %; Platelet Count 314 k/uL (150-450); RBC 4.61 m/uL (4.30-5.90); WBC 8.5 k/uL (3.8-10.6)
[2018-07-31 09:40] LABS: ALT 66 U/L (21-72); AST 29 U/L (17-59); African American GFR (CKD) >90 (>60 ml/min/1.73 sqM); Albumin 3.1 g/dL (3.5-5.0); Alkaline Phosphatase 52 U/L (38-126); Anion Gap 7 mmol/L; Blood Urea Nitrogen 26 mg/dL (9-20); Calcium 8.5 mg/dL (8.4-10.2); Carbon Dioxide 28 mmol/L (22-30); Chloride 104 mmol/L (98-107); Glucose 105 mg/dL (74-99); Potassium 4.5 mmol/L (3.5-5.1); Sodium 139 mmol/L (137-145); Total Bilirubin 0.6 mg/dL (0.2-1.3); Total Protein 5.6 g/dL (6.3-8.2)
--- NOTE | 2018-07-31 11:27 | XR ---
EXAMINATION TYPE: XR chest 2V DATE OF EXAM: 07/31/2018 COMPARISON: Prior chest x-ray 07/27/2018 HISTORY: Follow-up pneumonia TECHNIQUE: Frontal and lateral views of the chest are obtained. FINDINGS: Prominent lung volumes are compatible with underlying COPD. There is no evident pneumothor ax or pleural effusion. Heart size is stable, aorta is dense. The increased attenuation seen on prior exam is a right arthritic angle is improved aeration. Linear opacities persist at the lung bases sug gesting interstitial lung disease. IMPRESSION: There is some improvement in aeration as described.
[2018-07-31 11:28] LABS: Glucose,Whole Blood 109 mg/dL (75-99)
--- NOTE | 2018-07-31 12:53 | P.DS ---
Providers Date of admission: 07/26/18 09:33 Expected date of discharge: 07/31/18 Attending physician: Carolee Rice Consults: 07/26/18 11:03 Consult Physician Routine Consulting Provider: Moshe Segal Consult Reason/Comments: COPD exacerbation Do you want consulting provider notified?: Yes Primary care physician: Britany [facility] Course: Discharge diagnosis 1. Shortness breath related to right lower lobe pneumonia and COPD exacerbation. Chest x-ray completed showing right basilar pneumonia, underlying COPD, and bronchial cuffing that may relate to active or infectious airway disease. Pulmonate services have been consulted. Sputum culture ordered repeat 2 view chest x-ray ordered. Patient started on DuoNeb, IV antibiotics and Solu-Medrol. Sputum culture growing corynebacterium straitum. Discussed with pulmonary services okay to be discharged home. Repeat chest x-ray reviewed per pulmonary. Patient will be DC'd on azithromycin and prednisone taper 2. Chest tightness with coughing. EKG showing sinus tachycardia, possible left atrial enlargement. Likely pleuritic in nature. Troponins negative 3. 2-D echo completed showing an EF of 55-60% 3. Nicotine dependence. Patient educated longer than 3 minutes on smoking cessation. Nicotine patch ordered 4. COPD. 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 History of GERD 6. History of osteoarthritis 7. History of hernia repair 8. Oral thrush nystatin added per pulmonary. Patient will be DC'd on nightstand for 2 more days Hospital course This is a 67-year-old male patient of Dr. Lomas. Patient presented with complaints of increased shortness of breath. Patient reports that he woke up Tuesday with having increased shortness breath that progressively became worse throughout the day yesterday. Patient reports that he had some chest tightness with the coughing and congestion. Patient denies any significant cardiac history. Patient reports he does have history of COPD and current half pack smoker. Patient started on IV steroids IV antibiotics DuoNeb updraft breathing treatments. Repeat chest x-ray ordered. Pulmonary services have been consulted. Serial troponins and 2-D echo has been ordered. Sputum culture ordered. At this time patient reports significant improvement with shortness of breath. Patient denies any chest pain. Patient denies nausea vomiting or diarrhea. Patient denies any urinary burning or frequency On 07/27/2018 patient is alert and oriented 3 resting comfortably in bed. Patient does report improvement with shortness of breath and cough. Patient was able to provide sputum sample. Patient denies any chest pain or shortness of breath. Patient denies nausea vomiting or diarrhea. Patient denies any urinary burning or frequency. Pulmonary services are following. Patient remains on IV antibiotics and Solu-Medrol On 07/28/2018 patient is alert and oriented 3. Patient does state some improvement with shortness of breath. Patient still short of breath with activity. Patient remains on 2 L nasal cannula. Patient remains on antibiotics and Solu-Medrol. We'll continue to monitor. At this time patient denies chest pain or shortness of breath. Patient denies nausea vomiting or diarrhea. Patient denies any urinary burning or frequency On 07/29/2018 patient was seen and examined on the medical floor he is alert and oriented 3 in no apparent distress he is still complaining of significant shortness of breath with any activity he is complaining of occasional cough otherwise he denies any complaints there is no fever or chills no headache or dizziness no chest pain no nausea or vomiting no abdominal pain no diarrhea and no urinary symptoms. On 07/30/2018 patient is feeling better he is alert and oriented 3, he is still complaining of cough and complaining of shortness of breath with activity otherwise he denies any complaints there is no fever or chills no chest pain, no nausea or vomiting no abdominal pain no diarrhea and no urinary symptoms. On 07/31/2018 patient is feeling significantly improved. Patient is on room air. Discussed with pulmonology services. Okay to be discharged home. Patient will be discharged home on azithromycin and prednisone taper. Patient to follow up with PCP and ice skating coach for further management. At this time patient denies chest pain or shortness breath. Patient denies nausea vomiting or diarrhea. Patient denies any urinary burning or frequency I performed an examination of the patient and discussed their management with the Nurse Practitioner. I have reviewed the Nurse Practitioner's notes and agree with the documented findings and plan of care Patient Condition at Discharge: Stable Plan - Discharge Summary Discharge Rx Participant: No New Discharge Prescriptions: No Action diphenhydrAMINE HCL [Benadryl] 50 mg PO HS Tiotropium 18 Mcg/Puff [Spiriva] 1 puff INHALATION RT-DAILY Aspirin 81 mg PO HS Naproxen 500 mg PO DAILY Lovastatin [Mevacor] 20 mg PO HS Budesonide/Formoterol Fumarate [Symbicort 160-4.5 Mcg Inhaler] 2 puff INHALATION RT-BID Multivit-Min/FA/Lycopen/Lutein [Centrum Silver Men Tablet] 1 tab PO DAILY Discharge Medication List Aspirin 81 mg PO HS 11/23/17 [History] Budesonide/Formoterol Fumarate [Symbicort 160-4.5 Mcg Inhaler] 2 puff INHALATION RT-BID 11/23/17 [History] Lovastatin [Mevacor] 20 mg PO HS 11/23/17 [History] Multivit-Min/FA/Lycopen/Lutein [Centrum Silver Men Tablet] 1 tab PO DAILY 11/23/17 [History] Naproxen 500 mg PO DAILY 11/23/17 [History] Tiotropium 18 Mcg/Puff [Spiriva] 1 puff INHALATION RT-DAILY 11/23/17 [History] diphenhydrAMINE HCL [Benadryl] 50 mg PO HS 11/23/17 [History] Follow up Appointment(s)/Referral(s): Britany Lomas DO [Primary Care Provider] - 1-2 days
[2018-07-31 14:38] VITALS: BP 164/95; PULSE 83; RESP 22
--- NOTE | 2018-07-31 15:45 | P.PN ---
Subjective Progress Note Date: 07/31/18 Principal diagnosis: Acute exacerbation of chronic obstructive pulmonary disease Patient seen today 07/31/2018 in follow-up on the regular medical floor. He is currently resting comfortably in bed. Awake and alert in no acute distress. States his breathing is back to his baseline. He is anxious to go home. Objective - Vital Signs Vital signs: Vital Signs Temp 97.7 F 07/31/18 13:17 Pulse 83 07/31/18 13:17 Resp 22 07/31/18 13:17 BP 164/95 07/31/18 13:17 Pulse Ox 93 L 07/31/18 13:17 Intake & Output 07/30/18 07/31/18 07/31/18 18:59 06:59 18:59 Intake Total 1750 540 Balance 1750 540 Intake: Oral 1750 540 Other: Voiding Method Toilet # Voids 2 1 2 # Bowel Movements 1 - Exam GENERAL EXAM: Alert, pleasant, 67-year-old male, comfortable in no apparent distress. On room air. HEAD: Normocephalic/atraumatic. EYES: Normal reaction of pupils, equal size. Conjunctiva pink, sclera white. NOSE: Clear with pink turbinates. THROAT: No erythema or exudates. NECK: No masses, no JVD, no thyroid enlargement, no adenopathy. CHEST: No chest wall deformity. Symmetrical expansion. LUNGS: Equal air entry with diminished breath sounds, CVS: Regular rate and rhythm, normal S1 and S2, no gallops, no murmurs, no rubs ABDOMEN: Soft, nontender. No hepatosplenomegaly, normal bowel sounds, no guarding or rigidity. EXTREMITIES: No clubbing, no edema, no cyanosis, 2+ pulses and upper and lower extremities. MUSCULOSKELETAL: Muscle strength and tone normal. SPINE: No scoliosis or deformity SKIN: No rashes CENTRAL NERVOUS SYSTEM: No focal deficits, tone is normal in all 4 extremities. PSYCHIATRIC: Alert and oriented -3. Appropriate affect. Intact judgment and insight. - Labs CBC & Chem 7: 07/31/18 08:45 07/31/18 08:45 Labs: Abnormal Lab Results - Last 24 Hours (Table) 07/30/18 07/30/18 07/31/18 Range/Units 16:58 20:17 06:55 Hgb (13.0-17.5) gm/dL MCHC (31.0-37.0) g/dL Lymphocytes # (1.0-4.8) k/uL BUN (9-20) mg/dL Glucose (74-99) mg/dL POC Glucose (mg/dL) 113 H 150 H 112 H (75-99) mg/dL Total Protein (6.3-8.2) g/dL Albumin (3.5-5.0) g/dL 07/31/18 07/31/18 07/31/18 Range/Units 08:45 08:45 11:23 Hgb 12.5 L (13.0-17.5) gm/dL MCHC 30.8 L (31.0-37.0) g/dL Lymphocytes # 0.6 L (1.0-4.8) k/uL BUN 26 H (9-20) mg/dL Glucose 105 H (74-99) mg/dL POC Glucose (mg/dL) 109 H (75-99) mg/dL Total Protein 5.6 L (6.3-8.2) g/dL Albumin 3.1 L (3.5-5.0) g/dL Microbiology - Last 24 Hours (Table) 07/26/18 07:30 Blood Culture - Preliminary Blood No Growth after 120 hours Assessment and Plan Assessment: Impression: 1 acute COPD exacerbation with secondary shortness of breath, improving slowly 2 right lower lobe pneumonia and the patient is a right basilar airspace disease on admission chest x-ray. 3 dyspnea and cough secondary to above 4 acid reflux 5 osteoarthritis 6 smoking Plan The patient was seen and evaluated by Dr. Redd. He is cleared for discharge from the pulmonary standpoint. Complete prednisone taper. Continue Symbicort, Spiriva and albuterol. He is again educated regarding the importance of complete smoking cessation. NicoDerm patch is in place Follow-up in our office in 1-2 weeks' time. He is encouraged to call sooner with any recurrence of symptoms or other questions or concerns. I, the cosigning physician, performed a history & physical examination of the patient. Lungs sounds are clear but diminished. Maintaining good O2 saturations in the 90s on room air. I discussed the assessment and plan of care with my nurse practitioner, Sandra Camarillo. I attest to the above note as dictated by her.
== END 2018-07-31 14:46 | disposition home or self-care (01) | DRG 194 ==
LOC: EC 06:44 → 4MS4W 09:33
PROVIDERS: ADMIT Internal Medicine; ATTEND Internal Medicine
DX: J18.9 Pneumonia, unspecified organism (principal); J44.0 Chronic obstructive pulmonary disease with (acute) lower respiratory infection; J44.1 Chronic obstructive pulmonary disease with (acute) exacerbation; B37.0 Candidal stomatitis; F17.210 Nicotine dependence, cigarettes, uncomplicated; Z79.51 Long term (current) use of inhaled steroids; Z79.82 Long term (current) use of aspirin; Z79.1 Long term (current) use of non-steroidal anti-inflammatories (NSAID); K21.9 Gastro-esophageal reflux disease without esophagitis; M19.90 Unspecified osteoarthritis, unspecified site; Z80.7 Family history of other malignant neoplasms of lymphoid, hematopoietic and related tissues; Z71.6 Tobacco abuse counseling; Z79.899 Other long term (current) drug therapy
CPT/HCPCS: 36415; 71046; 80053; 83605; 83735; 84484; 85025; 85610; 85730; 87040; 87070; 87205; 87502; 93005; 93306; 94640; 94760; 96361; 96365; 96366; 96375; 99285

== ENCOUNTER 2019-12-13 10:57 | Day surgery (SDC) | payer MEDICARE ==
[2019-12-12 08:52] VITALS: BMI 27.3
[~2019-12-13 10:57] MED LIST changes: -DEXAMETHASONE SOD PHOSPHATE 10 MG/ML 1 ML VIAL IV ONE; -HEPARIN SODIUM,PORCINE 5,000 UNIT/ML 1 ML VIAL SQ ONE; +LACTATED RINGERS 1,000 ML IV SCH; -LIDOCAINE 1% 20 ML VIAL (10MG/ML) FOR IV START INTRADERMA PRN; -MIDAZOLAM 2 MG/2 ML VIAL IV PRN; -ONDANSETRON 4 MG/2 ML VIAL IVP ONE; -SCOPOLAMINE 1.5MG/72HR PATCH TRANSDERM ONE; -ceFAZolin IN SWFI 2 GM/20 ML SYRINGE IVP ONE
[2019-12-13] MEDS ORDERED: LIDOCAINE 1% (10MG/ML) FOR IV START INTRADERMA ONE (11:26)
[2019-12-13 11:37] VITALS: TEMP 97.3
[2019-12-13] MEDS ORDERED: MIDAZOLAM 2 MG/2 ML VIAL ONE (11:45)
[2019-12-13] MEDS ORDERED: LIDOCAINE 1% INJ 10MG/ML (20 ML MDV) ONE (11:45)
[2019-12-13] MEDS ORDERED: PROPOFOL 10 MG/ML 20 ML VIAL IV ONE (11:45)
[2019-12-13] MEDS ORDERED: fentaNYL (PF) 50 MCG/ML 2 ML AMP ONE (11:45)
--- NOTE | 2019-12-13 11:46 | P.GSHP ---
History of Present Illness H&P Date: 12/13/19 Chief Complaint: Indigestion, GERD This a 69-year-old male was a safer EGD. He's had problems with indigestion and GERD. He states he has some reflux at night. Past Medical History Past Medical History: COPD, GERD/Reflux, Hyperlipidemia, Osteoarthritis (OA) Additional Past Medical History / Comment(s): left inguinal hernia History of Any Multi-Drug Resistant Organisms: None Reported Past Surgical History: Hernia Repair Additional Past Surgical History / Comment(s): hemorrhoidectomy,throat surg, left inguinal hernia repair X4 , right shoulder surgery Past Anesthesia/Blood Transfusion Reactions: No Reported Reaction Additional Past Anesthesia/Blood Transfusion Reaction / Comment(s): no hx blood transfusion Smoking Status: Former smoker, Vaper - Past Family History Mother Family Medical History: No Reported History Additional Family Medical History / Comment(s): Mother had a cardiac valve replaced. Father Family Medical History: Cancer Additional Family Medical History / Comment(s): Lymphoma Sister(s) Family Medical History: Cancer Additional Family Medical History / Comment(s): breast cancer Medications and Allergies Home Medications Medication Instructions Recorded Confirmed Type Aspirin 81 mg PO HS 11/23/17 12/13/19 History Budesonide/Formoterol Fumarate 2 puff INHALATION RT-BID 11/23/17 12/13/19 History [Symbicort 160-4.5 Mcg Inhaler] Lovastatin [Mevacor] 20 mg PO HS 11/23/17 12/13/19 History Multivit-Min/FA/Lycopen/Lutein 1 tab PO DAILY 11/23/17 12/13/19 History [Centrum Silver Men Tablet] Naproxen 500 mg PO DAILY 11/23/17 12/13/19 History Tiotropium 18 Mcg/Puff [Spiriva] 1 puff INHALATION RT-DAILY 11/23/17 12/13/19 History diphenhydrAMINE HCL [Benadryl] 50 mg PO HS 11/23/17 12/13/19 History Famotidine [Pepcid] 40 mg PO HS 12/12/19 12/13/19 History Allergies Allergy/AdvReac Type Severity Reaction Status Date / Time No Known Allergies Allergy Verified 12/13/19 11:26 Surgical - Exam Vital Signs Temp Pulse Resp BP Pulse Ox 97.3 F L 104 H 20 185/95 94 L 12/13/19 11:27 12/13/19 11:27 12/13/19 11:27 12/13/19 11:27 12/13/19 11:27 - General well developed, well nourished, no distress - Eyes PERRL - ENT normal pinna - Neck no masses - Respiratory normal expansion - Cardiovascular Rhythm: regular - Abdomen Abdomen: soft, non tender Assessment and Plan Assessment: GERD, indigestion. We'll perform EGD.
--- NOTE | 2019-12-13 11:55 | P.OP ---
Date of Procedure: 12/13/19 Preoperative Diagnosis: GERD Indigestion Postoperative Diagnosis: Antral gastritis Moderate size hiatal hernia Esophagitis Procedure(s) Performed: EGD Anesthesia: MAC Surgeon: Chris Mcclendon Pathology: other (Antrum, esophagus) Condition: stable Disposition: PACU Description of Procedure: The patient's placed on the endoscopy table in the lateral position. He received IV sedation. The gastric was placed oropharynx passed in the esophagus and into the stomach. Scope was then placed through the pylorus. The first and second portion of the duodenum appeared normal. Scope was then brought back the antrum this. Mildly inflamed. A biopsy performed. The scope was retroflexed and remainder some appeared normal. The patient had a moderate size hiatal hernia. The GE junction was at 38 cm. The distal esophagus appeared mildly inflamed a biopsies performed. The proximal esophagus appeared normal. Scope was withdrawn for patient.
[2019-12-13 12:06] VITALS: BP 151/69; PULSE 90; RESP 16
--- NOTE | 2019-12-13 15:16 | NM ---
EXAMINATION TYPE: NM hepatobiliary w CCK DATE OF EXAM: 12/13/2019 COMPARISON: NONE HISTORY: Indigestion TECHNIQUE: After the intravenous administration of 5.1 mCi Tc 99m Mebrofenin hepatobiliary scintigrap hy is performed. Immediate images post injection. FINDINGS: There is satisfactory initial accumulation of tracer by the liver. The gallbladder is visualized wit hin 10 minutes. The small bowel activity is noted within 54 minutes. At one hour CCK was administer ed, patient was injected with 1.6 mcg of Kinevac, and gallbladder ejection fraction is calculated at 10 %, abnormal low. IMPRESSION: Abnormal low gallbladder ejection fraction.
== END 2019-12-13 12:46 | disposition home or self-care (01) ==
LOC: ORWHC2ENDO 10:57
PROVIDERS: ATTEND Surgery
DX: K29.50 Unspecified chronic gastritis without bleeding (principal); K21.00 Gastro-esophageal reflux disease with esophagitis, without bleeding; K44.9 Diaphragmatic hernia without obstruction or gangrene; R94.8 Abnormal results of function studies of other organs and systems; J44.9 Chronic obstructive pulmonary disease, unspecified; E78.5 Hyperlipidemia, unspecified; M19.90 Unspecified osteoarthritis, unspecified site; F17.290 Nicotine dependence, other tobacco product, uncomplicated; Z87.19 Personal history of other diseases of the digestive system; Z98.890 Other specified postprocedural states; Z79.82 Long term (current) use of aspirin; Z79.51 Long term (current) use of inhaled steroids; Z79.899 Other long term (current) drug therapy; Z79.1 Long term (current) use of non-steroidal anti-inflammatories (NSAID); Z87.01 Personal history of pneumonia (recurrent); Z80.3 Family history of malignant neoplasm of breast; Z80.7 Family history of other malignant neoplasms of lymphoid, hematopoietic and related tissues
CPT/HCPCS: 43239; 88305; 78227; A9537; J2250; J2805; J2001; J3010; J2704

== ENCOUNTER → 2019-12-28 | Outpatient (CLI) | payer MEDICARE ==
--- NOTE | 2019-12-30 15:14 | PE ---
Nuclear medicine PET/CT HISTORY: Cancer of the esophagus, initial Patient received 11.3 mCi F-18 FDG intravenously in delayed scanning was performed from skull base to the mid thighs. Localization and attenuation correction CT scan was performed. No comparisons Chest and neck: There is no cervical or supraclavicular adenopathy. Within the aorticopulmonary windo w there is adenopathy with associated hypermetabolic uptake, abnormal uptake is present in the left h ilar region, there is abnormal soft tissue at this level. Only mild uptake seen at the level of the d istal esophagus. There is small hiatal hernia disc level. There is no additional lung mass. No pleura l or pericardial effusion. Emphysematous changes are present within the lungs. ABDOMEN: There are vague areas of questionable increased uptake seen within the liver, no mass is pat ntified with certainty. No retroperitoneal adenopathy. There is no ascites. Prostate is enlarged and shows associated calcification. No pelvic adenopathy. Osseous structures show focus of uptake involving the posterior ilium on the left. No lytic or blasti c lesion identified however. Additionally the L4 vertebral body on the right shows a focus of uptake IMPRESSION: Abnormal uptake within the mediastinum, left hilum, possibly within the liver and left il ium. Abnormal osseous uptake additionally noted suspicious for metastatic disease. Consider liver MRI for better evaluation.
== END | disposition home or self-care (01) ==
LOC: RADPETMAIN 09:52
PROVIDERS: ATTEND Internal Medicine Hematology & Oncology
DX: C15.9 Malignant neoplasm of esophagus, unspecified (principal); R93.7 Abnormal findings on diagnostic imaging of other parts of musculoskeletal system; R93.89 Abnormal findings on diagnostic imaging of other specified body structures; R91.8 Other nonspecific abnormal finding of lung field
CPT/HCPCS: 78815; A9552

== ENCOUNTER 2020-01-02 10:42 | Day surgery (SDC) | payer MEDICARE ==
[2019-12-31 11:39] VITALS: BMI 26.7
[~2020-01-02 10:42] MED LIST changes: +ALBUTEROL NEB (CONC) 2.5 MG/0.5 ML INHALATION ONE; +LIDOCAINE 2% (PF) 20 MG/ML 5 ML VIAL INHALATION ONE; +LIDOCAINE VISCOUS 300 MG/15 ML CUP MUCOUS MEM ONE; +SODIUM CHLORIDE 0.9% 1,000 ML IV SCH
[2020-01-02 11:02] VITALS: TEMP 98
[2020-01-02] MEDS ORDERED: LACTATED RINGERS 1,000 ML IV ONE (11:02)
[2020-01-02] MEDS ORDERED: LIDOCAINE 1% (10MG/ML) FOR IV START INTRADERMA ONE (11:02)
[2020-01-02] MEDS ORDERED: PROPOFOL 10 MG/ML 20 ML VIAL IV ONE (12:14)
[2020-01-02] MEDS ORDERED: LIDOCAINE 1% INJ 10MG/ML (20 ML MDV) ONE (12:14)
[2020-01-02] MEDS ORDERED: SUCCINYLCHOLINE CHLORIDE 100 MG/5 ML SYR IV ONE (12:14)
--- NOTE | 2020-01-02 13:04 | P.PCN ---
Date of Procedure: 01/02/20 Preoperative Diagnosis: left hilar mass Postoperative Diagnosis: left hilar mass Procedure(s) Performed: Flexible bronchoscopy Endobronchial biopsy of hilar mass Endobronchial brushings of the left hilar mass Bronchioloalveolar lavage of the left hilar Transbronchial needle aspirate of the left hilar mass Anesthesia: DONISA Surgeon: Moshe Segal Production Hardener #1: Sandra Camarillo Pathology: other Condition: stable Disposition: same day Operative Findings: This procedure was done in the endoscopy suite. The patient was intubated and placed on a mechanical ventilator. Intubation process was done by WOODWORKING MACHINIST. The patient was intubated by #8 orotracheal tube. The procedure was done as the patient was sedated and mechanically ventilated. An adapter was attached orotracheal tube and following that the flexible bronchoscope was passed through the oral tracheal tube with was advanced into the lower trachea. Examination tracheal bronchial tree was done. Trachea distally was within normal limits. The examination of the right side included the the right mainstem bronchus, right upper lobe bronchus and bronchus intermedius and right middle lobe and right lower lobe bronchus and all of these airways were patent and within normal limits. Following that, bronchoscope was moved to the left side and exertion left mainstem bronchus was done and it was within normal limits. the corbin there was between the left upper and left lower lobe bronchus was extrinsically compressed. There was some endobronchial involvement at the lateral wall of the proximal left lower lobe bronchus and some endobronchial irregularities involving the corbin left upper and left lower lobe bronchus. The upper lobe bronchus was also mildly extrinsically compressed. At this point in time, endobronchial brushings of the left hilar mass was done. The area that was brushed with a endobronchial irregularities at the level of the secondary corbin. I also performed endobronchial biopsies using a forceps biopsy and a lavage of the left hilar was done over a total of 60 mL of fluid was infused and around 20 mL of fluid was aspirated. Following that, I utilized a 21-gauge histology needle to perform transbronchial needle aspirates of the left hilar mass and the biopsy site was in the left hilum. The level of the corbin the to the left upper and left lower lobe. 2 passes were taken. The patient towards the procedure well. No significant bleeding was encountered and the total amount of blood loss was less than 5 mL. The patient remained hemodynamically stable. The patient was extubated and the patient was transferred recovery in stable condition.
[2020-01-02 13:54] VITALS: RESP 18
[2020-01-02 14:20] VITALS: BP 177/81; PULSE 99
== END 2020-01-02 14:27 | disposition home or self-care (01) ==
LOC: ORWHC2ENDO 10:42
PROVIDERS: ATTEND Internal Medicine Critical Care Medicine
DX: J44.9 Chronic obstructive pulmonary disease, unspecified (principal); E78.5 Hyperlipidemia, unspecified; F17.200 Nicotine dependence, unspecified, uncomplicated; Z80.8 Family history of malignant neoplasm of other organs or systems; Z80.7 Family history of other malignant neoplasms of lymphoid, hematopoietic and related tissues; Z82.49 Family history of ischemic heart disease and other diseases of the circulatory system; Z79.1 Long term (current) use of non-steroidal anti-inflammatories (NSAID); Z79.82 Long term (current) use of aspirin; Z79.51 Long term (current) use of inhaled steroids; Z79.899 Other long term (current) drug therapy
CPT/HCPCS: 88104; 88108; 88305; 88173; 88342; 88341; 87070; 87205; 31628; 31625; 31623; 31624; J2001; J0330; J2704; 31633

== ENCOUNTER → 2020-01-18 | Outpatient (CLI) | payer MEDICARE ==
--- NOTE | 2020-01-18 16:30 | XR ---
AP pelvis HISTORY: Back pain Single frontal view the pelvis Degenerative disc changes are noted in the lower lumbar spine. There are vascular calcifications with in the pelvis. Bone mineralization, joint spaces and alignment are maintained. No fracture or disloca tion. IMPRESSION: Degenerative disc disease.
--- NOTE | 2020-01-18 16:32 | XR ---
Lumbar spine HISTORY: Low back pain 3 views the lumbar spine There is multilevel spondylosis. Loss of disc height is present intervertebral levels L4-5, L3-4, L2- 3. Minimal retrolisthesis grade 1 L2-3, L3-4. Vacuum phenomenon present at L4-5. There is a slight sp inal curvature. Sclerosis present in the posterior elements. Lumbar vertebral bodies show preserved h eight and bone mineralization. Atherosclerotic vascular calcifications noted incidentally. IMPRESSION: Degenerative disc disease and facet arthropathy. Additional findings above.
--- NOTE | 2020-01-19 03:10 | MR ---
EXAMINATION TYPE: MR liver wo/w con DATE OF EXAM: 01/18/2020 COMPARISON: PET/CT scan 12/28/2019. HISTORY: Lung cancer, abnormal PET CT CONTRAST: Standard multiplanar, multisequence MRI departmental protocol utilizing 7.5 mL intravenous Gadavist g adolinium contrast. Multiplanar multiecho imaging of the abdomen was performed without and with IV contrast. Throughout the liver there are numerous rounded high signal foci on the T2 weighted images. These are variable size and measure up to 2 cm. Spleen is intact. There is no evidence of pancreatic mass. Pancreatic duct appears normal. Common talisha e duct appears normal. There are a few cysts in the kidneys that measure up to 2 cm. There is no hydr onephrosis. There is no retroperitoneal adenopathy. The stomach is intact. Gallbladder appears normal . Contrast images show most of the liver lesions are enhancing. There is no ascites. There is no evidence of a bowel obstruction. There is no evidence of adrenal mas s. IMPRESSION: Numerous liver lesions which show enhancement and consistent with extensive metastatic disease.
== END | disposition home or self-care (01) ==
LOC: RADMRIMAIN 14:56
PROVIDERS: ATTEND Internal Medicine Hematology & Oncology
DX: K76.89 Other specified diseases of liver (principal); M43.16 Spondylolisthesis, lumbar region; M51.36 Other intervertebral disc degeneration, lumbar region; M47.816 Spondylosis without myelopathy or radiculopathy, lumbar region; M53.86 Other specified dorsopathies, lumbar region; M43.8X6 Other specified deforming dorsopathies, lumbar region; G95.89 Other specified diseases of spinal cord; C15.5 Malignant neoplasm of lower third of esophagus
CPT/HCPCS: 72100; 72170; 74183; A9585

== ENCOUNTER → 2020-01-23 | Outpatient (CLI) | payer MEDICARE ==
--- NOTE | 2020-01-23 12:21 | MR ---
EXAMINATION TYPE: MR brain wo/w con DATE OF EXAM: 01/23/2020 COMPARISON: PET/CT 12/28/2019 HISTORY: Lung/esophageal cancer, abnormal PET CT TECHNIQUE: Multiplanar, multisequence images of the brain and brainstem is performed without and with IV contras t, utilizing 7.5 mL intravenous Gadavist . FINDINGS: Diffusion weighted images demonstrate no evidence of a recent infarct or other diffusion ab normality. There is no extra-axial fluid collection. Scattered periventricular hyperintensities are present on inversion recovery T2-weighted sequences, approximately 20 lesions are present The ventri cular system and cisternal spaces are normal in size and appearance. The brain volume is age appropr iate. Midline structures demonstrate normal morphology. The craniocervical junction appears within normal limits. Post contrast images demonstrate a somewhat prominent pituitary stalk. The dural venous sinu ses appear patent. The visualized sinuses are clear and the globes are intact. Mild inflammatory ngo ge present in the mastoid air cells on the right IMPRESSION: No abnormal enhancement to suggest metastatic disease. Prominent appearance of the pituit romeo stalk likely normal variant, follow-up could be performed to assess for stability. Nonspecific wh ite matter demyelination. Correlate for possible mastoiditis on the right.
== END | disposition home or self-care (01) ==
LOC: RADMRIMAIN 11:08
PROVIDERS: ATTEND Internal Medicine Hematology & Oncology
DX: G37.8 Other specified demyelinating diseases of central nervous system (principal); R90.89 Other abnormal findings on diagnostic imaging of central nervous system; C15.5 Malignant neoplasm of lower third of esophagus
CPT/HCPCS: 70553; A9585

== ENCOUNTER 2020-01-29 07:41 | Day surgery (SDC) | payer MEDICARE ==
[2020-01-29 08:29] LABS: Mean Platelet Volume 6.9; Platelet Count 274 k/uL (150-450)
[2020-01-29 08:40] VITALS: TEMP 97.5
[2020-01-29 08:47] LABS: INR 0.9 (<1.2); Prothrombin Time 9.9 sec (9.0-12.0)
[2020-01-29 09:23] VITALS: BP 181/99; PULSE 84; RESP 18
--- NOTE | 2020-01-29 09:37 | US ---
Ultrasound-guided therapeutic and diagnostic thoracentesis DATE OF EXAM: 01/29/2020 CLINICAL HISTORY: Liver masses. The presented prior to the procedure with a elevated blood pressure which was markedly elevated and u nsafe for percutaneous biopsy. Procedure discontinued. The patient referring physician was contacted. IMPRESSION: 1. Discontinued liver biopsy due to elevated blood pressure.
== END 2020-01-29 09:52 | disposition home or self-care (01) ==
LOC: RADPROMAIN 07:41
PROVIDERS: ATTEND Internal Medicine Hematology & Oncology
DX: K76.89 Other specified diseases of liver (principal); R03.0 Elevated blood-pressure reading, without diagnosis of hypertension; Z53.8 Procedure and treatment not carried out for other reasons
CPT/HCPCS: 36415; 76705; 85049; 85610

== ENCOUNTER 2020-02-14 08:50 | Day surgery (SDC) | payer MEDICARE ==
[2020-02-14 09:27] LABS: Mean Platelet Volume 7.3; Platelet Count 197 k/uL (150-450)
[2020-02-14 10:04] VITALS: TEMP 97.9
[2020-02-14 12:31] VITALS: RESP 18
[2020-02-14 14:03] VITALS: BP 138/81; PULSE 98
--- NOTE | 2020-02-14 15:18 | US ---
EXAMINATION TYPE: US biopsy liver DATE OF EXAM: 02/14/2020 HISTORY: Left lobe liver mass. FINDINGS: Maximal barrier technique was utilized. Hand hygiene achieved with soap and water and alco hol-based hand rub. The skin overlying a suitable path to the patient's mass in left lobe of the live r] was localized with ultrasound and the overlying skin prepped and draped. Ultrasound was utilized with sterile technique. Lidocaine was used for local anesthesia. A skin roshni was made with a scalpe l. An 18-gauge needle was advanced under direct ultrasound guidance and core specimen obtained of th e mass. Specimen submitted in formalin to Pathology. Following the procedure, hemostasis achieved an d the patient is discharged in stable condition without complication. IMPRESSION:STATUS POST ULTRASOUND GUIDED CORE BIOPSY OF liver MASS, PATHOLOGY IS PENDING. THIS PROCE DURE IS PERFORMED BY THE UNDERSIGNED.
== END 2020-02-14 14:15 | disposition home or self-care (01) ==
LOC: RADPROMAIN 08:50
PROVIDERS: ATTEND Internal Medicine Hematology & Oncology
DX: C78.7 Secondary malignant neoplasm of liver and intrahepatic bile duct (principal)
CPT/HCPCS: 36415; 47000; 76942; 85049; 85610; 88307; 88341; 88342

== ENCOUNTER 2020-03-05 13:35 | Inpatient (IN) | payer MEDICARE ==
--- NOTE | 2020-03-05 14:25 | ED ---
General Adult HPI - General Chief complaint: Shortness of Breath Stated complaint: LILLIAM Time Seen by Provider: 03/05/20 13:40 Source: patient, family, RN notes reviewed, old records reviewed Mode of arrival: wheelchair Limitations: no limitations - History of Present Illness Initial comments: This a 69-year-old male presents emergency Department with a past history of small cell lung cancer with metastatic disease to the liver and esophagus. Patient comes in today because having increased swelling to his legs which is been ongoing for a couple of months but getting worse per patient also complains of severe fatigue and shortness of breath. Patient denies any chest pain or palpitations. Patient denies any recent fever chills or cough. Patient denies headache patient denies numbness or focal weakness. Patient denies any lightheadedness. - Related Data Home Medications Medication Instructions Recorded Confirmed Budesonide/Formoterol Fumarate 2 puff INHALATION RT-BID 11/23/17 03/05/20 [Symbicort 160-4.5 Mcg Inhaler] Lovastatin [Mevacor] 20 mg PO HS 11/23/17 03/05/20 Multivit-Min/FA/Lycopen/Lutein 1 tab PO DAILY 11/23/17 03/05/20 [Centrum Silver Men Tablet] Tiotropium 18 Mcg/Puff [Spiriva] 1 puff INHALATION RT-DAILY 11/23/17 03/05/20 Famotidine [Pepcid] 40 mg PO HS 12/12/19 03/05/20 Acetaminophen [Tylenol Extra 500 mg PO BID 12/31/19 03/05/20 Strength] amLODIPine [Norvasc] 10 mg PO DAILY 02/06/20 03/05/20 Furosemide [Lasix] 20 mg PO DAILY 03/05/20 03/05/20 Ondansetron [Zofran ODT] 4 mg PO Q8H PRN 03/05/20 03/05/20 Potassium Chloride ER [K-Dur 20] 20 meq PO DAILY 03/05/20 03/05/20 Allergies Allergy/AdvReac Type Severity Reaction Status Date / Time No Known Allergies Allergy Verified 03/05/20 16:30 Review of Systems ROS Statement: Those systems with pertinent positive or pertinent negative responses have been documented in the HPI. ROS Other: All systems not noted in ROS Statement are negative. Past Medical History Past Medical History: Cancer, COPD, GERD/Reflux, Hyperlipidemia, Hypertension, Osteoarthritis (OA) Additional Past Medical History / Comment(s): left inguinal hernia, lung cancer--small cell History of Any Multi-Drug Resistant Organisms: None Reported Past Surgical History: Hernia Repair Additional Past Surgical History / Comment(s): hemorrhoidectomy,throat surg, left inguinal hernia repair X4 , right shoulder surgery, bronchoscopy Past Anesthesia/Blood Transfusion Reactions: No Reported Reaction Additional Past Anesthesia/Blood Transfusion Reaction / Comment(s): no hx blood transfusion Past Psychological History: No Psychological Hx Reported Smoking Status: Former smoker, Vaper Past Alcohol Use History: Rare Past Drug Use History: None Reported - Past Family History Mother Family Medical History: No Reported History Additional Family Medical History / Comment(s): Mother had a cardiac valve replaced. Father Family Medical History: Cancer, Respiratory Disorder Additional Family Medical History / Comment(s): Lymphoma, mesothelioma lung Sister(s) Family Medical History: Cancer Additional Family Medical History / Comment(s): breast cancer Brother(s) Family Medical History: Cancer Additional Family Medical History / Comment(s): lung cancer General Exam - General Exam Comments Initial Comments: GENERAL: Patient is well-developed and well-nourished. Patient is nontoxic and well- hydrated and is in mild distress. ENT: Neck is soft and supple. No significant lymphadenopathy is noted. Oropharynx is clear. Moist mucous membranes. Neck has full range of motion without eliciting any pain. EYES: The sclera were anicteric and conjunctiva were pink and moist. Extraocular movements were intact and pupils were equal round and reactive to light. Eyelids were unremarkable. PULMONARY: Unlabored respirations. Good breath sounds bilaterally. No audible rales rhonchi or wheezing was noted. CARDIOVASCULAR: Patient is tachycardic. ABDOMEN: Soft and nontender with normal bowel sounds. SKIN: Skin is clear with no lesions or rashes and otherwise unremarkable. NEUROLOGIC: Patient is alert and oriented x3. Cranial nerves II through XII are grossly intact. Motor and sensory are also intact. Normal speech, volume and content. Symmetrical smile. MUSCULOSKELETAL: Normal extremities with adequate strength and full range of motion. 3+ edema bilaterally LYMPHATICS: No significant lymphadenopathy is noted PSYCHIATRIC: Normal psychiatric evaluation. Limitations: no limitations Course Vital Signs 03/05/20 03/05/20 03/05/20 13:38 14:52 15:51 Temperature 97.9 F Pulse Rate 114 H 115 H Respiratory 24 20 20 Rate Blood Pressure 102/62 O2 Sat by Pulse 91 L 95 Oximetry 03/05/20 16:03 Temperature Pulse Rate 114 H Respiratory 18 Rate Blood Pressure 119/76 O2 Sat by Pulse 94 L Oximetry Medical Decision Making - Medical Decision Making EKG shows sinus tachycardia at 110 bpm AR interval 134 QRS is 80 QT interval 326 QTC is 441 per patient's EKG shows no ST segment elevation or depression. CT showed increased size in the left lung mass as well as up structures of the lower left bronchus. Patient also is a massively adrenal gland that appears to be disease. Spoke with Dr. Fragoso he agreed to admit the patient admitted the patient and wrote admitting orders and consult - Lab Data Result diagrams: 03/05/20 13:55 03/05/20 13:55 Lab Results 03/05/20 03/05/20 03/05/20 Range/Units 13:55 13:55 13:55 WBC 14.2 H (3.8-10.6) k/uL RBC 5.04 (4.30-5.90) m/uL Hgb 14.9 (13.0-17.5) gm/dL Hct 44.6 (39.0-53.0) % MCV 88.5 (80.0-100.0) fL MCH 29.5 (25.0-35.0) pg MCHC 33.3 (31.0-37.0) g/dL RDW 19.3 H (11.5-15.5) % Plt Count 149 L (150-450) k/uL MPV 7.7 Neutrophils % 93 % Lymphocytes % 4 % Monocytes % 2 % Eosinophils % 0 % Basophils % 0 % Neutrophils # 13.1 H (1.3-7.7) k/uL Lymphocytes # 0.5 L (1.0-4.8) k/uL Monocytes # 0.4 (0-1.0) k/uL Eosinophils # 0.1 (0-0.7) k/uL Basophils # 0.1 (0-0.2) k/uL Anisocytosis Slight PT 10.9 (9.0-12.0) sec INR 1.0 (<1.2) APTT 20.2 L (22.0-30.0) sec D-Dimer 1.71 H (<0.60) mg/L FEU Sodium 137 (137-145) mmol/L Potassium 3.9 (3.5-5.1) mmol/L Chloride 104 (98-107) mmol/L Carbon Dioxide 27 (22-30) mmol/L Anion Gap 6 mmol/L BUN 39 H (9-20) mg/dL Creatinine 1.27 H (0.66-1.25) mg/dL Est GFR (CKD-EPI)AfAm 66 (>60 ml/min/1.73 sqM) Est GFR (CKD-EPI)NonAf 57 (>60 ml/min/1.73 sqM) Glucose 113 H (74-99) mg/dL Plasma Lactic Acid Riley (0.7-2.0) mmol/L Calcium 8.7 (8.4-10.2) mg/dL Magnesium 2.6 H (1.6-2.3) mg/dL Total Bilirubin 5.3 H (0.2-1.3) mg/dL AST 119 H (17-59) U/L ALT 249 H (4-49) U/L Alkaline Phosphatase 383 H (38-126) U/L Troponin I (0.000-0.034) ng/mL NT-Pro-B Natriuret Pep pg/mL Total Protein 5.6 L (6.3-8.2) g/dL Albumin 2.9 L (3.5-5.0) g/dL 03/05/20 03/05/20 03/05/20 Range/Units 13:55 13:55 13:55 WBC (3.8-10.6) k/uL RBC (4.30-5.90) m/uL Hgb (13.0-17.5) gm/dL Hct (39.0-53.0) % MCV (80.0-100.0) fL MCH (25.0-35.0) pg MCHC (31.0-37.0) g/dL RDW (11.5-15.5) % Plt Count (150-450) k/uL MPV Neutrophils % % Lymphocytes % % Monocytes % % Eosinophils % % Basophils % % Neutrophils # (1.3-7.7) k/uL Lymphocytes # (1.0-4.8) k/uL Monocytes # (0-1.0) k/uL Eosinophils # (0-0.7) k/uL Basophils # (0-0.2) k/uL Anisocytosis PT (9.0-12.0) sec INR (<1.2) APTT (22.0-30.0) sec D-Dimer (<0.60) mg/L FEU Sodium (137-145) mmol/L Potassium (3.5-5.1) mmol/L Chloride (98-107) mmol/L Carbon Dioxide (22-30) mmol/L Anion Gap mmol/L BUN (9-20) mg/dL Creatinine (0.66-1.25) mg/dL Est GFR (CKD-EPI)AfAm (>60 ml/min/1.73 sqM) Est GFR (CKD-EPI)NonAf (>60 ml/min/1.73 sqM) Glucose (74-99) mg/dL Plasma Lactic Acid Riley 1.4 (0.7-2.0) mmol/L Calcium (8.4-10.2) mg/dL Magnesium (1.6-2.3) mg/dL Total Bilirubin (0.2-1.3) mg/dL AST (17-59) U/L ALT (4-49) U/L Alkaline Phosphatase (38-126) U/L Troponin I 0.013 (0.000-0.034) ng/mL NT-Pro-B Natriuret Pep 288 pg/mL Total Protein (6.3-8.2) g/dL Albumin (3.5-5.0) g/dL Disposition Clinical Impression: Lung mass, Adrenal mass, Pedal edema, Hyperbilirubinemia, Dyspnea Disposition: ADMITTED IP TO THIS HOSP Referrals: Britany Lomas DO [Primary Care Provider] - 1-2 days Time of Disposition: 18:49
--- NOTE | 2020-03-05 15:22 | XR ---
EXAMINATION TYPE: XR chest 2V DATE OF EXAM: 03/05/2020 COMPARISON: Chest x-ray July 31, 2018 HISTORY: Difficulty breathing and weakness. TECHNIQUE: Frontal and lateral views of the chest are obtained. FINDINGS: There is chronic parenchymal changes bilaterally with slightly elevated left hemidiaphragm . New Small to tiny left pleural effusion. Right lung remains clear. Cardiac silhouette size remains within normal limits. Metallic anchor right humeral head level redemonstrated. IMPRESSION: New small to tiny left pleural effusion and associated patchy left basilar atelectasis a nd/or infiltrate.
[2020-03-05 16:20] LABS: Anisocytosis Slight; Basophils # (A) 0.1 k/uL (0-0.2); Basophils % (A) 0 %; Eosinophils # (A) 0.1 k/uL (0-0.7); Eosinophils % (A) 0 %; HCT 44.6 % (39.0-53.0); HGB 14.9 gm/dL (13.0-17.5); Lymphocytes # (A) 0.5 k/uL (1.0-4.8); Lymphocytes % (A) 4 %; MCH 29.5 pg (25.0-35.0); MCHC 33.3 g/dL (31.0-37.0); MCV 88.5 fL (80.0-100.0); Mean Platelet Volume 7.7; Monocytes # (A) 0.4 k/uL (0-1.0); Monocytes % (A) 2 %; Neutrophils # (A) 13.1 k/uL (1.3-7.7); Neutrophils % (A) 93 %; Platelet Count 149 k/uL (150-450); RBC 5.04 m/uL (4.30-5.90); RDW 19.3 % (11.5-15.5); WBC 14.2 k/uL (3.8-10.6)
[2020-03-05 16:36] LABS: Albumin 2.9 g/dL (3.5-5.0); Calcium 8.7 mg/dL (8.4-10.2); Magnesium 2.6 mg/dL (1.6-2.3); Potassium 3.9 mmol/L (3.5-5.1); Total Bilirubin 5.3 mg/dL (0.2-1.3); Total Protein 5.6 g/dL (6.3-8.2)
[2020-03-05 16:49] LABS: Prothrombin Time 10.9 sec (9.0-12.0)
[2020-03-05 17:25] LABS: D-Dimer 1.71 mg/L FEU (<0.60); Partial Thromboplastin Time 20.2 sec (22.0-30.0)
--- NOTE | 2020-03-05 18:32 | CT ---
EXAMINATION TYPE: CT chest angio for PE DATE OF EXAM: 03/05/2020 COMPARISON: PET/CT scan 12/28/2019 HISTORY: Elevated d-dimer and hx of lung cancer. CT DLP: 406.3 mGycm Automated exposure control for dose reduction was used. CONTRAST: Performed with IV Contrast, patient injected with 80ml mL of Isovue 370. There are 3-D post processed images. There is diffuse bullous emphysema. There is consolidation and atelectasis in the posterior medial le ft lower lobe. There is large mass at the inferior posterior left pulmonary hilum that measures 7 cm. There is significant narrowing of the left lower lobe bronchus. There is no evidence of filling defect within the pulmonary arteries. Heart size is normal. There is no pericardial effusion. There is enlarged subcarinal lymph nodes measuring 3.5 cm. There is left arcenio e paratracheal enlarged lymph nodes measuring up to 2 cm. The thoracic aorta is intact. There is no aneurysm or dissection. Ascending aorta measures 3.8 cm. Thoracic spine is intact. There is no compression fracture. There is 2 cm left side adrenal mass. IMPRESSION: No evidence of pulmonary embolism. Left lower lobe mass at the left pulmonary hilum with bronchial and mediastinal adenopathy consistent with tumor that appears significantly increased in size compared to CT scan of 12/28/2019. There is left lower lobe atelectasis that is new compared to old exam. Obstruction left lower lobe bronchus. Left adrenal mass consistent with metastatic disease increased in size compared to old exam. Bullous emphysema.
[2020-03-06] MEDS ORDERED: SODIUM CHLORIDE 0.9% 500 ML 500 ML in EMPTY BAG 1 BAG IV PRN (05:00)
[2020-03-06] MEDS ORDERED: ONDANSETRON 4 MG/2 ML VIAL IVP PRN ×2 (08:59→15:20)
[2020-03-06] MEDS ORDERED: ACETAMINOPHEN TAB 325 MG TAB PO PRN (08:59)
[2020-03-06] MEDS ORDERED: FUROSEMIDE 20 MG TAB PO SCH (09:00)
[2020-03-06] MEDS: FUROSEMIDE 10 MG/ML 4 ML VIAL IV SCH (09:31)
[2020-03-06] MEDS: MULTIVITAMINS, THERA 1 EACH TAB PO SCH (09:31)
[2020-03-06] MEDS: IPRATROPIUM-ALBUTEROL 3 ML NEB INHALATION PRN (12:12)
[2020-03-06] MEDS ORDERED: DEXAMETHASONE SOD PHOSPHATE 10 MG/ML 1 ML VIAL IV SCH (17:00)
[2020-03-06] MEDS ORDERED: ONDANSETRON 16 MG in SODIUM CHLORIDE 0.9% 50 ML IVPB SCH (17:00)
[2020-03-06] MEDS ORDERED: FAMOTIDINE 20 MG/2 ML VIAL IV SCH (17:00)
[2020-03-06] MEDS ORDERED: ETOPOSIDE 190 MG in SODIUM CHLORIDE 0.9% 500 ML 500 ML IV SCH (17:00)
[2020-03-06] MEDS ORDERED: CARBOplatin 400 MG in SODIUM CHLORIDE 0.9% 250 ML IV ONE (17:00)
[2020-03-06] MEDS ORDERED: MAGNESIUM HYDROXIDE 2,400 MG/10 ML CUP PO PRN (19:46)
[2020-03-06] MEDS ORDERED: LOPERAMIDE 2 MG CAP PO PRN (19:46)
[2020-03-06] MEDS: SODIUM CHLORIDE 0.9% 1,000 ML IV SCH (20:12)
[2020-03-06] MEDS: SALT AND SODA MOUTHWASH 1,000 ML PO SCH ×2 (20:56→23:07)
[2020-03-06] MEDS: FAMOTIDINE 20 MG TAB PO SCH (21:49)
--- NOTE | 2020-03-06 23:29 | P.HPIM ---
History of Present Illness H&P Date: 03/06/20 Chief Complaint: shortness of breath Paulo Stuart is a 69 yo M with hx of recently diagnosed lung cancer, COPD, diastolic CHF, HTN, HLD who presented to the ED with increasing shortness of breath. He was scheduled for his first cycle of chemotherapy yesterday but was noted to be hypoxic on room air and was therefore recommended to come to the ED. He denies any chest pain, fever or chills. He does endorse malaise and shortness of breath. On presentation he was tachycardic and hypoxic on room air, WBC 14k, Cr 1.4, BNP 300. CTA chest showing LLL mass with consolidation and obstruction. Review of Systems All systems: negative Constitutional: Reports fatigue, Reports malaise, Reports weakness, Denies chills, Denies fever Eyes: denies blurred vision, denies pain Ears, nose, mouth and throat: Denies headache, Denies sore throat Cardiovascular: Reports dyspnea on exertion, Denies chest pain, Denies shortness of breath Respiratory: Reports cough, Reports dyspnea Gastrointestinal: Denies abdominal pain, Denies diarrhea, Denies nausea, Denies vomiting Musculoskeletal: Denies myalgias Integumentary: Denies pruritus, Denies rash Neurological: Denies numbness, Denies weakness Psychiatric: Denies anxiety, Denies depression Endocrine: Denies fatigue, Denies weight change Past Medical History Past Medical History: Cancer, COPD, GERD/Reflux, Hyperlipidemia, Hypertension, Osteoarthritis (OA) Additional Past Medical History / Comment(s): left inguinal hernia, lung cancer--small cell History of Any Multi-Drug Resistant Organisms: None Reported Past Surgical History: Hernia Repair Additional Past Surgical History / Comment(s): hemorrhoidectomy,throat surg, left inguinal hernia repair X4 , right shoulder surgery, bronchoscopy Past Anesthesia/Blood Transfusion Reactions: No Reported Reaction Additional Past Anesthesia/Blood Transfusion Reaction / Comment(s): no hx blood transfusion Past Psychological History: No Psychological Hx Reported Additional Psychological History / Comment(s): Pt resides alone. He is independent. He drives. He served in the [employer]. Smoking Status: Former smoker, Vaper Past Alcohol Use History: Rare Additional Past Alcohol Use History / Comment(s): started smoking at age 20 quit july 2018 smoked 1/2ppd-3/4 ppd. vapes daily Past Drug Use History: None Reported - Past Family History Mother Family Medical History: No Reported History Additional Family Medical History / Comment(s): Mother had a cardiac valve replaced. Father Family Medical History: Cancer, Respiratory Disorder Additional Family Medical History / Comment(s): Lymphoma, mesothelioma lung Sister(s) Family Medical History: Cancer Additional Family Medical History / Comment(s): breast cancer Brother(s) Family Medical History: Cancer Additional Family Medical History / Comment(s): lung cancer Medications and Allergies Home Medications Medication Instructions Recorded Confirmed Type Budesonide/Formoterol Fumarate 2 puff INHALATION RT-BID 11/23/17 03/05/20 History [Symbicort 160-4.5 Mcg Inhaler] Lovastatin [Mevacor] 20 mg PO HS 11/23/17 03/05/20 History Multivit-Min/FA/Lycopen/Lutein 1 tab PO DAILY 11/23/17 03/05/20 History [Centrum Silver Men Tablet] Tiotropium 18 Mcg/Puff [Spiriva] 1 puff INHALATION RT-DAILY 11/23/17 03/05/20 History Famotidine [Pepcid] 40 mg PO HS 12/12/19 03/05/20 History Acetaminophen [Tylenol Extra 500 mg PO BID 12/31/19 03/05/20 History Strength] amLODIPine [Norvasc] 10 mg PO DAILY 02/06/20 03/05/20 History Furosemide [Lasix] 20 mg PO DAILY 03/05/20 03/05/20 History Ondansetron [Zofran ODT] 4 mg PO Q8H PRN 03/05/20 03/05/20 History Potassium Chloride ER [K-Dur 20] 20 meq PO DAILY 03/05/20 03/05/20 History Allergies Allergy/AdvReac Type Severity Reaction Status Date / Time No Known Allergies Allergy Verified 03/05/20 16:30 Physical Exam Vitals: Vital Signs Temp Pulse Pulse Resp BP Pulse Ox 03/06/20 22:02 98.6 F 103 H 18 116/62 95 03/06/20 20:05 18 03/06/20 20:00 97.4 F L 107 H 18 123/78 99 03/06/20 14:00 115 H 20 03/06/20 12:27 107 H 03/06/20 12:14 103 H 03/06/20 12:00 97.8 F 115 H 20 120/84 92 L 03/06/20 08:00 97.3 F L 114 H 20 122/82 92 L 03/06/20 04:00 98.3 F 110 H 18 139/81 93 L 03/05/20 23:57 97.6 F 100 18 124/86 94 L Intake and Output 03/06/20 03/06/20 03/07/20 14:59 22:59 06:59 Intake Total 533 Output Total 1450 Balance -917 Intake: Oral 533 Output: Urine 1450 Other: Voiding Method Urinal Urinal # Voids 1 # Bowel Movements 2 General: well nourished, well developed, NAD. Vitals reviewed. On 2 L O2 Eyes: PERRL, EOMI, conjunctiva normal HENT: normocephalic, mucus membranes moist Neck: supple, no JVD Lungs: normal respiratory effort, wheezes and rhonchi throughout. Rales at bases CV: Regular rate and rhythm, no murmur. Peripheral pulses 2+ Abdomen: soft, nondistended, no organomegaly Lymph: no cervical or axillary LAD Skin: warm and dry. Neuro: A&Ox3, normal mood and affect Results CBC & Chem 7: 03/05/20 13:55 03/05/20 13:55 Labs: Microbiology - Last 24 Hours (Table) 03/05/20 13:55 Blood Culture - Preliminary Blood No Growth after 24 hours Thrombosis Risk Factor Assmnt - Choose All That Apply Any of the Below Risk Factors Present?: Yes Each Factor Represents 1 point: Abnormal pulmonary function (COPD) Other Risk Factors: Yes Each Risk Factor Represents 2 Points: Age 61-74 years Other congenital or acquired thrombophilia - If yes, enter type in comment: No Thrombosis Risk Factor Assessment Total Risk Factor Score: 3 Thrombosis Risk Factor Assessment Level: Moderate Risk Assessment and Plan (1) Acute hypoxemic respiratory failure Current Visit: Yes Status: Acute Code(s): J96.01 - ACUTE RESPIRATORY FAILURE WITH HYPOXIA SNOMED Code(s): 461299509 (2) Acute on chronic diastolic CHF (congestive heart failure), NYHA class 3 Current Visit: Yes Status: Acute Code(s): I50.33 - ACUTE ON CHRONIC DIASTOLIC (CONGESTIVE) HEART FAILURE SNOMED Code(s): 011225366 (3) Hyperbilirubinemia Current Visit: Yes Status: Acute Code(s): E80.6 - OTHER DISORDERS OF BILIRUBIN METABOLISM SNOMED Code(s): 23484016 (4) Liver metastases Current Visit: Yes Status: Acute Priority: High Code(s): C78.7 - SECONDARY MALIG NEOPLASM OF LIVER AND INTRAHEPATIC BILE DUCT SNOMED Code(s): 26151982 (5) Small cell lung cancer Current Visit: Yes Status: Acute Priority: High Code(s): C34.90 - MALIGNANT NEOPLASM OF UNSP PART OF UNSP BRONCHUS OR LUNG SNOMED Code(s): 244745928 (6) Transaminitis Current Visit: Yes Status: Acute Priority: High Code(s): R74.01 - ELEVA TION OF LEVELS OF LIVER TRANSAMINASE LEVELS SNOMED Code(s): 835592791 Plan: 1. Acute hypoxic respiratory failure. Secondary to fluid overload and lung cancer. Oncology consulted, increase lasix to 40 mg IV daily. Pt for chemotherapy. Continue with duonebs and steroids 2. Small cell lung cancer 3. Acute exacerbation of CHF. IV diuresis 4. Chronic kidney disease stage 3b. Nephrology consult, pt scheduled for chemotherapy 5. HTN. Continue home medication 6. HLD
[2020-03-07] MEDS: SALT AND SODA MOUTHWASH 1,000 ML PO SCH ×4 (05:22→20:05)
[2020-03-07] MEDS: FUROSEMIDE 10 MG/ML 4 ML VIAL IV SCH (09:12)
[2020-03-07] MEDS: MULTIVITAMINS, THERA 1 EACH TAB PO SCH (09:12)
--- NOTE | 2020-03-07 09:56 | P.PN ---
Subjective Progress Note Date: 03/07/20 Paulo Stuart is a 69 yo M with hx of recently diagnosed lung cancer, COPD, diastolic CHF, HTN, HLD who presented to the ED with increasing shortness of breath. He was scheduled for his first cycle of chemotherapy yesterday but was noted to be hypoxic on room air and was therefore recommended to come to the ED. He denies any chest pain, fever or chills. He does endorse malaise and shortness of breath. On presentation he was tachycardic and hypoxic on room air, WBC 14k, Cr 1.4, BNP 300. CTA chest showing LLL mass with consolidation and obstruction. 03/07/2020 and received first chemotherapy yesterday. Tolerated well. Denies nausea or vomiting. No diarrhea. Scheduled for second dose of chemotherapy today. Diuresing well on Lasix IV push with 24-hour I&O reflecting a negative fluid balance.. Denies chest pain, palpitations or increased shortness of breath. Maintaining O2 sats in the 90s on 5 L nasal cannula. Mild tachycardia. Afebrile Objective - Vital Signs Vital signs: Vital Signs Temp 97.4 F L 03/07/20 07:41 Pulse 112 H 03/07/20 07:41 Resp 18 03/07/20 07:41 BP 124/78 03/07/20 07:41 Pulse Ox 94 L 03/07/20 07:41 Intake & Output 03/06/20 03/07/20 03/07/20 18:59 06:59 18:59 Intake Total 533 Output Total 1450 350 Balance -917 -350 Weight 74.9 kg Intake: Oral 533 Output: Urine 1450 350 Other: Voiding Method Urinal Urinal # Voids 1 1 # Bowel Movements 2 - Exam General: Sitting up in bed, no acute distress Eyes: PERRL, EOMI, conjunctiva normal HENT: normocephalic, mucus membranes moist Neck: supple, no JVD Lungs: normal respiratory effort, wheezes and rhonchi throughout. Rales at bases CV: Regular rate and rhythm, no murmur. Peripheral pulses 2+ Abdomen: soft, nondistended, no organomegaly, positive bowel sounds Skin: warm and dry. Decreasing edema bilateral lower extremities. Bilateral lower extremities Iraj wrap clean dry and intact. Neuro: A&Ox3, - Labs CBC & Chem 7: 03/05/20 13:55 03/05/20 13:55 Labs: Microbiology - Last 24 Hours (Table) 03/05/20 13:55 Blood Culture - Preliminary Blood No Growth after 24 hours Assessment and Plan Assessment: (1) Acute hypoxemic respiratory failure Current Visit: Yes Status: Acute Code(s): J96.01 - ACUTE RESPIRATORY FAILURE WITH HYPOXIA SNOMED Code(s): 584143676 (2) Acute on chronic diastolic CHF (congestive heart failure), NYHA class 3 Current Visit: Yes Status: Acute Code(s): I50.33 - ACUTE ON CHRONIC DIASTOLIC (CONGESTIVE) HEART FAILURE SNOMED Code(s): 250526908 (3) Hyperbilirubinemia Current Visit: Yes Status: Acute Code(s): E80.6 - OTHER DISORDERS OF BILIRUBIN METABOLISM SNOMED Code(s): 25784040 (4) Liver metastases Current Visit: Yes Status: Acute Priority: High Code(s): C78.7 - SECONDARY MALIG NEOPLASM OF LIVER AND INTRAHEPATIC BILE DUCT SNOMED Code(s): 80126009 (5) Small cell lung cancer Current Visit: Yes Status: Acute Priority: High Code(s): C34.90 - MALIGNANT NEOPLASM OF UNSP PART OF UNSP BRONCHUS OR LUNG SNOMED Code(s): 282141491 (6) Transaminitis Current Visit: Yes Status: Acute Priority: High Code(s): R74.01 - ELEVATION OF LEVELS OF LIVER TRANSAMINASE LEVELS SNOMED Code(s): 215295341 Plan:Continue on current medication regime ,monitoring and symptomatic treatment. Aggressive pulmonary toileting, continue nebulized bronchodilators, steroids .chemotherapy as per oncology. Continue diuresing. Close monitoring of hematology, renal function, electrolytes, labs ordered. The impression and plan of care has been dictated as directed. : I performed a history and examination of this patient, discussed the same with the dictator. I agree with the dictator's note ,documented as a scribe. Any additional findings or plans will be noted.
--- NOTE | 2020-03-07 12:09 | P.NPCON ---
History of Present Illness - Reason for Consult acute renal failure - History of Present Illness Reason for consultation: Acute kidney injury History of present illness: Patient is a 69-year-old male seen in consultation for acute kidney injury. Creatinine was 0.86 as of August 2018. It was 1.2 as of 02/20/2020 and 1.27 as of 03/05/2020. Patient presented to the hospital due to worsening swelling in his lower extremities which is going on for the last couple of months. He also complaining of shortness of breath. 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 He was started on chemotherapy yesterday. He is also maintained on IV Lasix 40 mg once daily. Patient states edema has been improving. Good urine output. No hematuria or dysuria. He denies any personal history of kidney disease. No vomiting or diarrhea. Oral intake is just fair. Blood pressure stable. He denies use of nonsteroidals. No history of diabetes. He did undergo CTA on March 05 which revealed no evidence of PE. Tumor was noted to be increased in size. Currently on 5 L nasal cannula. Vital signs are stable. General: The patient appeared well nourished and normally developed. HEENT: Head exam is unremarkable. On nasal cannula. LUNGS: Breath sounds decreased. HEART: Rate and Rhythm are regular. ABDOMEN: Soft, nontender. EXTREMITITES: Lower extremities wrapped. 1+ edema. Past Medical History Past Medical History: Cancer, COPD, GERD/Reflux, Hyperlipidemia, Hypertension, Osteoarthritis (OA) Additional Past Medical History / Comment(s): left inguinal hernia, lung cancer--small cell History of Any Multi-Drug Resistant Organisms: None Reported Past Surgical History: Hernia Repair Additional Past Surgical History / Comment(s): hemorrhoidectomy,throat surg, left inguinal hernia repair X4 , right shoulder surgery, bronchoscopy Past Anesthesia/Blood Transfusion Reactions: No Reported Reaction Additional Past Anesthesia/Blood Transfusion Reaction / Comment(s): no hx blood transfusion Past Psychological History: No Psychological Hx Reported Additional Psychological History / Comment(s): Pt resides alone. He is independent. He drives. He served in the [employer]. Smoking Status: Former smoker, Vaper Past Alcohol Use History: Rare Additional Past Alcohol Use History / Comment(s): started smoking at age 20 quit july 2018 smoked 1/2ppd-3/4 ppd. vapes daily Past Drug Use History: None Reported - Past Family History Mother Family Medical History: No Reported History Additional Family Medical History / Comment(s): Mother had a cardiac valve replaced. Father Family Medical History: Cancer, Respiratory Disorder Additional Family Medical History / Comment(s): Lymphoma, mesothelioma lung Sister(s) Family Medical History: Cancer Additional Family Medical History / Comment(s): breast cancer Brother(s) Family Medical History: Cancer Additional Family Medical History / Comment(s): lung cancer Medications and Allergies Home Medications Medication Instructions Recorded Confirmed Type Budesonide/Formoterol Fumarate 2 puff INHALATION RT-BID 11/23/17 03/05/20 History [Symbicort 160-4.5 Mcg Inhaler] Lovastatin [Mevacor] 20 mg PO HS 11/23/17 03/05/20 History Multivit-Min/FA/Lycopen/Lutein 1 tab PO DAILY 11/23/17 03/05/20 History [Centrum Silver Men Tablet] Tiotropium 18 Mcg/Puff [Spiriva] 1 puff INHALATION RT-DAILY 11/23/17 03/05/20 History Famotidine [Pepcid] 40 mg PO HS 12/12/19 03/05/20 History Acetaminophen [Tylenol Extra 500 mg PO BID 12/31/19 03/05/20 History Strength] amLODIPine [Norvasc] 10 mg PO DAILY 02/06/20 03/05/20 History Furosemide [Lasix] 20 mg PO DAILY 03/05/20 03/05/20 History Ondansetron [Zofran ODT] 4 mg PO Q8H PRN 03/05/20 03/05/20 History Potassium Chloride ER [K-Dur 20] 20 meq PO DAILY 03/05/20 03/05/20 History Allergies Allergy/AdvReac Type Severity Reaction Status Date / Time No Known Allergies Allergy Verified 03/05/20 16:30 Physical Exam Vitals: Vital Signs Temp Pulse Pulse Resp BP Pulse Ox 03/07/20 07:41 97.4 F L 112 H 18 124/78 94 L 03/07/20 03:34 97.5 F L 108 H 16 123/75 94 L 03/06/20 23:26 97.8 F 103 H 18 115/71 95 03/06/20 22:02 98.6 F 103 H 18 116/62 95 03/06/20 20:05 18 03/06/20 20:00 97.4 F L 107 H 18 123/78 99 03/06/20 14:00 115 H 20 03/06/20 12:27 107 H 03/06/20 12:14 103 H Intake and Output 03/06/20 03/07/20 03/07/20 22:59 06:59 14:59 Output Total 800 Balance -800 Output: Urine 800 Other: Voiding Method Urinal # Voids 3 Weight 74.9 kg Results - Lab Results Most recent lab results Calcium 8.7 mg/dL (8.4-10.2) 03/05/20 13:55 Magnesium 2.6 mg/dL (1.6-2.3) H 03/05/20 13:55 03/05/20 13:55 03/05/20 13:55 Assessment and Plan Plan: Assessment: 1. Acute kidney injury mostly prerenal secondary to diuresis. Creatinine 1.27 as of 03/05/2020. Also received IV contrast dye on March 05. 2. Lower extremity edema. Improving with diuresis. 3. Small cell lung cancer with metastasis. Started on chemotherapy yesterday. Oncology following. Plan: Maintain IV Lasix 40 mg daily. Can likely be changed over to oral tomorrow. Morning labs pending. Check urinalysis. Avoid nephrotoxins. Continue to monitor renal function and urine output. Thank you for the consultation. I will continue to follow the patient with you during his hospital stay.
[2020-03-07 12:15] LABS: Glucose,Whole Blood 118 mg/dL (75-99)
--- NOTE | 2020-03-07 12:49 | P.CONS ---
History of Present Illness - Reason for Consult Consult date: 03/06/20 metastatic lung cancer Requesting physician: Christian Andrade - Chief Complaint SOB, BLE edema - History of Present Illness Mr. Stuart is a Pleasant male pt of Dr. Falcon who was recently diagnosed with SCLC. He developed choking in the upper to mid chest along with coughing while eating at a restaurant 12/03. Symptoms did resolve with coughing and drinking water. However, he continued to have a sore throat and some chest discomfort which persisted the next day. He had further episodes of coughing over the next day, including small amounts of blood. Symptoms then resolved. He saw his PCP Dr. Lomas and was referred for an upper endoscopy. 12/13/19, this showed evidence of esophagitis in the lower esophagus/GE junction, but also a distal esophageal mass. This was biopsied, final pathology, after consult at [facility], reported as at least high-grade dysplasia with features suspicious for invasive carcinoma involving the lamina propria. There was evidence of squamous overgrowth overlying the lesion. CT chest 12/07/19, showed a left hilar mass m easuring 4.5 x 4.4 cm with mass effect on the left lower lobe pulmonary artery, AP window adenopathy measuring 1.9 x 1.3 cm. , Moderate to advanced COPD related changes were seen. PET 12/28/19, showed abnormal uptake in the left hilar mass and the AP window node, along with mild uptake in the distal esophagus. Areas of questionable uptake in the liver with no definite mass identified. PET scan also noted focus of uptake involving the posterior ileum on the left, and L4 on the right. Bronchoscopy 01/02/20, procedure note reported extrinsic compression of the left lower lobe bronchus at the level of the corbin, along with some endobronchial involvement, mild extrinsic compression of the left upper lobe bronchus. Washings and biopsies positive for small cell carcinoma. He had MRI of the liver, and brain. There were confirmed multiple metastatic lesions involving both lobes, largest about 2 cm. MRI of the brain was negative. Skeletal x-rays did not show any definite metastatic disease. Liver biopsy ordered to confirm which of his malignancies was metastatic on 02/14/20, positive for metastatic small cell lung cancer. He was due to start treatment yesterday. He was sent from [facility] due to progressive SOB, BLE swelling. D-dimer elevated, CTA neg for PE. Pt seen and he denies fever, oral irritation, nausea, does have poor appetite, his cough is congested sounding, moderate SOB, no expectoration or current hemoptysis, chest pain, palpitations, he does feel that is abd is a little distended, urine is darker then usual, started the last few days, no acute changes in bowel habits, no itching, bleeding or pain. Review of Systems 14 point ROS is negative except as stated in HPI Past Medical History Past Medical History: Cancer, COPD, GERD/Reflux, Hyperlipidemia, Hypertension, Osteoarthritis (OA) Additional Past Medical History / Comment(s): left inguinal hernia, lung canc er--small cell History of Any Multi-Drug Resistant Organisms: None Reported Past Surgical History: Hernia Repair Additional Past Surgical History / Comment(s): hemorrhoidectomy,throat surg, left inguinal hernia repair X4 , right shoulder surgery, bronchoscopy Past Anesthesia/Blood Transfusion Reactions: No Reported Reaction Additional Past Anesthesia/Blood Transfusion Reaction / Comm: no hx blood transfusion Past Psychological History: No Psychological Hx Reported Additional Psychological History / Comment(s): Pt resides alone. He is independent. He drives. He served in the [employer]. Smoking Status: Former smoker, Vaper Past Alcohol Use History: Rare Additional Past Alcohol Use History / Comment(s): started smoking at age 20 quit july 2018 smoked 1/2ppd-3/4 ppd. vapes daily Past Drug Use History: None Reported - Past Family History Mother Family Medical History: No Reported History Additional Family Medical History / Comment(s): Mother had a cardiac valve replaced. Father Family Medical History: Cancer, Respiratory Disorder Additional Family Medical History / Comment(s): Lymphoma, mesothelioma lung Sister(s) Family Medical History: Cancer Additional Family Medical History / Comment(s): breast cancer Brother(s) Family Medical History: Cancer Additional Family Medical History / Comment(s): lung cancer Medications and Allergies Home Medications Medication Instructions Recorded Confirmed Type Budesonide/Formoterol Fumarate 2 puff INHALATION RT-BID 11/23/17 03/05/20 History [Symbicort 160-4.5 Mcg Inhaler] Lovastatin [Mevacor] 20 mg PO HS 11/23/17 03/05/20 History Multivit-Min/FA/Lycopen/Lutein 1 tab PO DAILY 11/23/17 03/05/20 History [Centrum Silver Men Tablet] Tiotropium 18 Mcg/Puff [Spiriva] 1 puff INHALATION RT-DAILY 11/23/17 03/05/20 History Famotidine [Pepcid] 40 mg PO HS 12/12/19 03/05/20 History Acetaminophen [Tylenol Extra 500 mg PO BID 12/31/19 03/05/20 History Strength] amLODIPine [Norvasc] 10 mg PO DAILY 02/06/20 03/05/20 History Furosemide [Lasix] 20 mg PO DAILY 03/05/20 03/05/20 History Ondansetron [Zofran ODT] 4 mg PO Q8H PRN 03/05/20 03/05/20 History Potassium Chloride ER [K-Dur 20] 20 meq PO DAILY 03/05/20 03/05/20 History Allergies Allergy/AdvReac Type Severity Reaction Status Date / Time No Known Allergies Allergy Verified 03/05/20 16:30 Physical Exam Vitals: Vital Signs Temp Pulse Pulse Resp BP BP Pulse Ox 03/06/20 14:00 115 H 20 03/06/20 12:27 107 H 03/06/20 12:14 103 H 03/06/20 12:00 97.8 F 115 H 20 120/84 92 L 03/06/20 08:00 97.3 F L 114 H 20 122/82 92 L 03/06/20 04:00 98.3 F 110 H 18 139/81 93 L 03/05/20 23:57 97.6 F 100 18 124/86 94 L 03/05/20 20:00 98.0 F 107 H 18 119/78 95 03/05/20 19:20 98.0 F 107 H 18 119/78 95 03/05/20 16:03 114 H 18 119/76 94 L 03/05/20 15:51 20 Intake and Output 03/06/20 03/06/20 03/06/20 06:59 14:59 22:59 Intake Total 533 Output Total 450 1450 Balance -450 -917 Intake: Oral 533 Output: Urine 450 1450 Other: Voiding Method Urinal # Voids 1 1 # Bowel Movements 2 Weight 75.7 kg - Constitutional General appearance: average body habitus, cooperative, no acute distress - EENT Eyes: EOMI, scleral icterus ENT: hearing grossly normal, normal oropharynx - Neck Neck: no lymphadenopathy - Respiratory Respiratory: bilateral: CTA, diminished, rales (few scattered anterior) - Cardiovascular Rhythm: regular Heart sounds: normal: S1, S2 Abnormal Heart Sounds: no systolic murmur, no diastolic murmur, no rub, no S3 Gallop, no S4 Gallop, no click, no other leg Peripheral Edema: bilateral: 3+, Pitting - Gastrointestinal General gastrointestinal: no absent bowel sounds, no decreased bowel sounds, distended, hepatomegaly, no hyperactive bowel sounds, normal bowel sounds, no organomegaly, no rigid, no scaphoid, soft, no splenomegaly, no tenderness, no umbilical hernia, no ventral hernia - Integumentary Integumentary: jaundiced - Neurologic Neurologic: CNII-XII intact - Musculoskeletal Musculoskeletal: generalized weakness - Psychiatric Psychiatric: A&O x's 3, appropriate affect, intact judgment & insight Results CBC & Chem 7: 03/05/20 13:55 03/05/20 13:55 Labs: Abnormal Lab Results - Last 24 Hours (Table) 03/05/20 03/05/20 03/05/20 Range/Units 13:55 13:55 13:55 WBC 14.2 H (3.8-10.6) k/uL RDW 19.3 H (11.5-15.5) % Plt Count 149 L (150-450) k/uL Neutrophils # 13.1 H (1.3-7.7) k/uL Lymphocytes # 0.5 L (1.0-4.8) k/uL APTT 20.2 L (22.0-30.0) sec D-Dimer 1.71 H (<0.60) mg/L FEU BUN 39 H (9-20) mg/dL Creatinine 1.27 H (0.66-1.25) mg/dL Glucose 113 H (74-99) mg/dL Magnesium 2.6 H (1.6-2.3) mg/dL Total Bilirubin 5.3 H (0.2-1.3) mg/dL AST 119 H (17-59) U/L ALT 249 H (4-49) U/L Alkaline Phosphatase 383 H (38-126) U/L Total Protein 5.6 L (6.3-8.2) g/dL Albumin 2.9 L (3.5-5.0) g/dL Chest x-ray: report reviewed CT scan - chest: report reviewed Assessment and Plan (1) Small cell lung cancer Current Visit: Yes Status: Acute Priority: High Code(s): C34.90 - MALIGNANT NEOPLASM OF UNSP PART OF UNSP BRONCHUS OR LUNG SNOMED Code(s): 827256148 (2) Liver metastases Current Visit: Yes Status: Acute Priority: High Code(s): C78.7 - SECONDARY MALIG NEOPLASM OF LIVER AND INTRAHEPATIC BILE DUCT SNOMED Code(s): 81745391 (3) Transaminitis Current Visit: Yes Status: Acute Priority: High Code(s): R74.01 - ELEVATION OF LEVELS OF LIVER TRANSAMINASE LEVELS SNOMED Code(s): 605425575 Plan: Dr. Falcon discussed with the pt (and later spoke to daughter on phone) his very concerning presentation. from work up it appears that pt is experiencing liver shunting (SOB without abnormal breath sounds, severe/rapid onset BLE swelling) which could be due to progressive cancer. If it is cancer spreading rapidly there is unfortunately nothing that can be done other then treat the cancer. Pt will definitely succumb to liver failure 2/2 diffuse malignancy shortly if treatment is not started. With the liver failing though, risks of side effects and sequela of chemo are of significant risk as well. Pt and daughter both seem to have an understanding of the precarious situation pt is in. Pt decided to proceed with chemo. Orders have been sent for the same. Pt willbe transferred to Oncology unit. Supportive meds ordered Nephrology consult for renal dysfunction and fluid overload. Labs daily Soft diet, Dietitian consult Activity encouraged. PT/OT eval and treat Doctor attests: I performed a history and physical examination of this patient, developed impression and plan of care. Discussed with dictator. I agree with dictators note, documented as a scribe.
[2020-03-07 13:41] LABS: Anisocytosis Slight; Basophils % (A) 0 %; Eosinophils % (A) 0 %; HCT 41.4 % (39.0-53.0); HGB 13.3 gm/dL (13.0-17.5); Lymphocytes # (A) 0.3 k/uL (1.0-4.8); Lymphocytes % (A) 3 %; MCH 28.6 pg (25.0-35.0); MCV 89.3 fL (80.0-100.0); Mean Platelet Volume 8.3; Monocytes # (A) 0.2 k/uL (0-1.0); Monocytes % (A) 2 %; Neutrophils # (A) 11.4 k/uL (1.3-7.7); Neutrophils % (A) 95 %; Platelet Count 127 k/uL (150-450); RBC 4.64 m/uL (4.30-5.90); RDW 19.7 % (11.5-15.5)
[2020-03-07 13:58] LABS: ALT 194 U/L (4-49); AST 103 U/L (17-59); African American GFR (CKD) 66 (>60 ml/min/1.73 sqM); Albumin 2.5 g/dL (3.5-5.0); Alkaline Phosphatase 331 U/L (38-126); Anion Gap 4 mmol/L; Blood Urea Nitrogen 39 mg/dL (9-20); Calcium 7.9 mg/dL (8.4-10.2); Carbon Dioxide 28 mmol/L (22-30); Chloride 101 mmol/L (98-107); Globulin 2.5 g/dL; Glucose 110 mg/dL (74-99); Magnesium 2.3 mg/dL (1.6-2.3); Non-African American GFR(CKD) 57 (>60 ml/min/1.73 sqM); Potassium 3.5 mmol/L (3.5-5.1); Sodium 133 mmol/L (137-145); Total Bilirubin 5.6 mg/dL (0.2-1.3)
[2020-03-07 13:59] LABS: Appearance,Urine Clear (Clear); Bilirubin,Urine Negative (Negative); Blood,Urine Negative (Negative); Color,Urine Yellow; Glucose,Urine (UA) Negative (Negative); Ketones,Urine Negative (Negative); Leukocyte Esterase,Urine Negative (Negative); Nitrite,Urine Negative (Negative); PH, Urine 6.5 (5.0-8.0); Protein,Urine Negative (Negative); Specific Gravity,Urine 1.009 (1.001-1.035); Urobilinogen,Urine <2.0 mg/dL (<2.0)
--- NOTE | 2020-03-07 14:06 | P.PN ---
Subjective Progress Note Date: 03/07/20 Principal diagnosis: Progressive Disease Chemotherapy initiated 03/06/20. Objective - Vital Signs Vital signs: Vital Signs Temp 98.9 F 03/07/20 12:34 Pulse 115 H 03/07/20 12:34 Resp 12 03/07/20 12:34 BP 116/66 03/07/20 12:34 Pulse Ox 94 L 03/07/20 12:34 Intake & Output 03/06/20 03/07/20 03/07/20 18:59 06:59 18:59 Intake Total 533 Output Total 1450 800 Balance -917 -800 Weight 74.9 kg Intake: Oral 533 Output: Urine 1450 800 Other: Voiding Method Urinal Urinal # Voids 1 3 # Bowel Movements 2 - Exam - Constitutional General appearance: average body habitus, cooperative, no acute distress - EENT Eyes: EOMI, scleral icterus ENT: hearing grossly normal, normal oropharynx - Neck Neck: no lymphadenopathy - Respiratory Respiratory: bilateral: CTA, diminished, rales (few scattered anterior) - Cardiovascular Rhythm: regular Heart sounds: normal: S1, S2 Abnormal Heart Sounds: no systolic murmur, no diastolic murmur, no rub, no S3 Gallop, no S4 Gallop, no click, no other leg Peripheral Edema: bilateral: 3+, Pitting - Gastrointestinal General gastrointestinal: no absent bowel sounds, no decreased bowel sounds, distended, hepatomegaly, no hyperactive bowel sounds, normal bowel sounds, no organomegaly, no rigid, no scaphoid, soft, no splenomegaly, no tenderness, no umbilical hernia, no ventral hernia - Integumentary Integumentary: jaundiced - Neurologic Neurologic: CNII-XII intact - Musculoskeletal Musculoskeletal: generalized weakness - Psychiatric Psychiatric: A&O x's 3, appropriate affect, intact judgment & insight - Labs CBC & Chem 7: 03/07/20 13:14 03/07/20 13:14 Labs: Abnormal Lab Results - Last 24 Hours (Table) 03/07/20 03/07/20 03/07/20 Range/Units 12:05 13:14 13:14 WBC 12.0 H (3.8-10.6) k/uL RDW 19.7 H (11.5-15.5) % Plt Count 127 L (150-450) k/uL Neutrophils # 11.4 H (1.3-7.7) k/uL Lymphocytes # 0.3 L (1.0-4.8) k/uL Sodium 133 L (137-145) mmol/L BUN 39 H (9-20) mg/dL Creatinine 1.27 H (0.66-1.25) mg/dL Glucose 110 H (74-99) mg/dL POC Glucose (mg/dL) 118 H (75-99) mg/dL Calcium 7.9 L (8.4-10.2) mg/dL Total Bilirubin 5.6 H (0.2-1.3) mg/dL AST 103 H (17-59) U/L ALT 194 H (4-49) U/L Alkaline Phosphatase 331 H (38-126) U/L Total Protein 5.0 L (6.3-8.2) g/dL Albumin 2.5 L (3.5-5.0) g/dL Microbiology - Last 24 Hours (Table) 03/05/20 13:55 Blood Culture - Preliminary Blood No Growth after 24 hours Assessment and Plan Plan: Chest x-ray: report reviewed CT scan - chest: report reviewed Assessment and Plan Extensive Stage Small cell lung cancer Current Visit: Yes Status: Acute Priority: High Code(s): C34.90 - MALIGNANT NEOPLASM OF UNSP PART OF UNSP BRONCHUS OR LUNG SNOMED Code(s): 000263744 Liver metastases: Current Visit: Yes Status: Acute Priority: High Code(s): C78.7 - SECONDARY MALIG NEOPLASM OF LIVER AND INTRAHEPATIC BILE DUCT SNOMED Code(s): 53949812 Transaminitis Current Visit: Yes Status: Acute Priority: High Code(s): R74.01 - ELEVATION OF LEVELS OF LIVER TRANSAMINASE LEVELS SNOMED Code(s): 828384334 Severe Bilateral Lower Extremity Edema: - Likely secondary to progressive liver mets and rapidly progressive disease Plan: - Initiate Salvage Chemotherapy for rapidly progressing disease - Continue Day 2 of Carboplatin and Etoposide - Nephrology Following Activity encouraged. PT/OT eval and treat Doctor attests: I performed a history and physical examination of this patient, developed impression and plan of care. Discussed with dictator. I agree with dictators note, documented as a scribe.
[2020-03-07] MEDS: INSULIN ASPART (NovoLOG) 100 UNIT/ML VIAL SQ SCH ×3 (14:46→21:09)
[2020-03-07 16:03] LABS: Glucose,Whole Blood 116 mg/dL (75-99)
[2020-03-07] MEDS: SODIUM CHLORIDE 0.9% 1,000 ML IV SCH (16:09)
[2020-03-07] MEDS: FAMOTIDINE 20 MG TAB PO SCH (19:54)
[2020-03-07] MEDS: ONDANSETRON 16 MG in SODIUM CHLORIDE 0.9% 50 ML IVPB SCH (20:05)
[2020-03-07] MEDS: DEXAMETHASONE SOD PHOSPHATE 10 MG/ML 1 ML VIAL IV SCH (20:06)
[2020-03-07] MEDS: FAMOTIDINE 20 MG/2 ML VIAL IV SCH (20:06)
[2020-03-07 21:00] LABS: Glucose,Whole Blood 166 mg/dL (75-99)
[2020-03-07] MEDS: ETOPOSIDE 190 MG in SODIUM CHLORIDE 0.9% 500 ML 500 ML IV SCH (21:01)
[2020-03-08] MEDS: SALT AND SODA MOUTHWASH 1,000 ML PO SCH ×6 (01:54→23:55)
[2020-03-08 07:12] LABS: Anisocytosis Slight; Basophils % (A) 0 %; Eosinophils % (A) 0 %; HCT 37.5 % (39.0-53.0); HGB 12.6 gm/dL (13.0-17.5); Lymphocytes # (A) 0.2 k/uL (1.0-4.8); Lymphocytes % (A) 2 %; MCH 29.9 pg (25.0-35.0); MCHC 33.5 g/dL (31.0-37.0); MCV 89.1 fL (80.0-100.0); Mean Platelet Volume 8.3; Monocytes # (A) 0.2 k/uL (0-1.0); Monocytes % (A) 2 %; Neutrophils # (A) 10.6 k/uL (1.3-7.7); Neutrophils % (A) 96 %; Platelet Count 106 k/uL (150-450); RDW 19.4 % (11.5-15.5)
[2020-03-08 07:38] LABS: Glucose,Whole Blood 106 mg/dL (75-99)
[2020-03-08] MEDS: INSULIN ASPART (NovoLOG) 100 UNIT/ML VIAL SQ SCH ×4 (07:49→21:35)
[2020-03-08] MEDS: MULTIVITAMINS, THERA 1 EACH TAB PO SCH (09:14)
[2020-03-08] MEDS: FUROSEMIDE 10 MG/ML 4 ML VIAL IV SCH (09:14)
[2020-03-08 12:11] LABS: African American GFR (CKD) 88.6 (60.0-200.0); Anion Gap 10.7 mmol/L (4.00-12.00); Calcium 7.7 mg/dL (8.7-10.3); Carbon Dioxide 25.3 mmol/L (21.6-31.8); Non-African American GFR(CKD) 76.5 (60.0-200.0); Potassium 3.8 mmol/L (3.5-5.5)
[2020-03-08 12:11] LABS: Glucose,Whole Blood 111 mg/dL (75-99)
[2020-03-08] MEDS: SODIUM CHLORIDE 0.9% 1,000 ML IV SCH (12:13)
--- NOTE | 2020-03-08 14:26 | P.PN ---
Subjective Progress Note Date: 03/08/20 Principal diagnosis: 1. Extensive stage SCLC Patient tolerating chemotherapy very well. Today is currently day 3 in the last day etoposide. Objective - Vital Signs Vital signs: Vital Signs Temp 97.9 F 03/08/20 09:05 Pulse 94 03/08/20 09:05 Resp 12 03/08/20 09:05 BP 116/62 03/08/20 09:05 Pulse Ox 94 L 03/08/20 09:05 Intake & Output 03/07/20 03/08/20 03/08/20 18:59 06:59 18:59 Output Total 922 507 6216 Balance -800 -125 -1150 Weight 74.9 kg 75.5 kg Output: Urine 831 [id number] [id number] Other: Voiding Method Urinal Urinal Urinal # Voids 3 3 5 - Exam Gen.: In no acute distress. HEENT: Mucosa moist Neck: Supple. Lungs: No respiratory distress. Heart: Regular rate and rhythm. Abdomen: Soft. MSK: Appropriate strength in all 4 extremities. Neuro: Alert and oriented 3. Skin: No jaundice. Psych: Appropriate affect. - Labs CBC & Chem 7: 03/08/20 06:13 03/08/20 06:13 Labs: Abnormal Lab Results - Last 24 Hours (Table) 03/07/20 03/07/20 03/07/20 Range/Units 13:14 13:14 16:01 WBC 12.0 H (3.8-10.6) k/uL RBC (4.30-5.90) m/uL Hgb (13.0-17.5) gm/dL Hct (39.0-53.0) % RDW 19.7 H (11.5-15.5) % Plt Count 127 L (150-450) k/uL Neutrophils # 11.4 H (1.3-7.7) k/uL Lymphocytes # 0.3 L (1.0-4.8) k/uL Sodium 133 L (137-145) mmol/L BUN 39 H (9-20) mg/dL Creatinine 1.27 H (0.66-1.25) mg/dL BUN/Creatinine Ratio (12.00-20.00) Ratio Glucose 110 H (74-99) mg/dL POC Glucose (mg/dL) 116 H (75-99) mg/dL Calcium 7.9 L (8.4-10.2) mg/dL Total Bilirubin 5.6 H (0.2-1.3) mg/dL AST 103 H (17-59) U/L ALT 194 H (4-49) U/L Alkaline Phosphatase 331 H (38-126) U/L Total Protein 5.0 L (6.3-8.2) g/dL Albumin 2.5 L (3.5-5.0) g/dL 03/07/20 03/08/20 03/08/20 Range/Units 20:57 06:13 06:13 WBC 11.0 H (3.8-10.6) k/uL RBC 4.20 L (4.30-5.90) m/uL Hgb 12.6 L (13.0-17.5) gm/dL Hct 37.5 L (39.0-53.0) % RDW 19.4 H (11.5-15.5) % Plt Count 106 L (150-450) k/uL Neutrophils # 10.6 H (1.3-7.7) k/uL Lymphocytes # 0.2 L (1.0-4.8) k/uL Sodium (137-145) mmol/L BUN 40.0 H (9-20) mg/dL Creatinine (0.66-1.25) mg/dL BUN/Creatinine Ratio 40.00 H (12.00-20.00) Ratio Glucose (74-99) mg/dL POC Glucose (mg/dL) 166 H (75-99) mg/dL Calcium 7.7 L (8.4-10.2) mg/dL Total Bilirubin (0.2-1.3) mg/dL AST (17-59) U/L ALT (4-49) U/L Alkaline Phosphatase (38-126) U/L Total Protein (6.3-8.2) g/dL Albumin (3.5-5.0) g/dL 03/08/20 03/08/20 Range/Units 07:37 12:10 WBC (3.8-10.6) k/uL RBC (4.30-5.90) m/uL Hgb (13.0-17.5) gm/dL Hct (39.0-53.0) % RDW (11.5-15.5) % Plt Count (150-450) k/uL Neutrophils # (1.3-7.7) k/uL Lymphocytes # (1.0-4.8) k/uL Sodium (137-145) mmol/L BUN (9-20) mg/dL Creatinine (0.66-1.25) mg/dL BUN/Creatinine Ratio (12.00-20.00) Ratio Glucose (74-99) mg/dL POC Glucose (mg/dL) 106 H 111 H (75-99) mg/dL Calcium (8.4-10.2) mg/dL Total Bilirubin (0.2-1.3) mg/dL AST (17-59) U/L ALT (4-49) U/L Alkaline Phosphatase (38-126) U/L Total Protein (6.3-8.2) g/dL Albumin (3.5-5.0) g/dL Microbiology - Last 24 Hours (Table) 03/05/20 13:55 Blood Culture - Preliminary Blood No Growth after 48 hours Assessment and Plan Assessment: 1. Metastatic small cell lung cancer 2. Liver met's 3. Transaminitis Plan: Mr. Stuart is a very pleasant 69-year-old gentleman with a history of small cell lung cancer who is here for recurrence with transaminitis. Currently on salvage chemotherapy with carboplatin and etoposide, today is day 3 out of 3 of chemo. Tolerating well. Continue with chemotherapy as planned. Continue supportive medications. From a GI on board for his underlying renal dysfunction and fluid overload. Discussed with patient is agreeable to the plan. All of his questions were answered.
[2020-03-08] MEDS: PIPERACILLIN-TAZOBACTAM 3.375 GM in SODIUM CHLORIDE 0.9% 100 ML IVPB SCH ×2 (15:56→23:53)
[2020-03-08 17:08] LABS: Glucose,Whole Blood 132 mg/dL (75-99)
--- NOTE | 2020-03-08 18:04 | PN ---
PROGRESS NOTE Patient is seen for followup for acute kidney injury. Renal function has improved. Creatinine down to 1.0. No significant complaints. EXAMINATION: Blood pressure was 116/62, heart rate 94 per minute, patient is afebrile. Examination of lower extremities shows 1+ edema noted bilaterally. WATER POLLUTION CONTROL TECHNICIAN exam is grossly intact. LABS: Show sodium 137, potassium 3.8, chloride 101, BUN 40, creatinine 1.0, hemoglobin 12.6 g/dL. ASSESSMENT: 1. Acute kidney injury, cardiorenal currently improved. Patient is also status post IV contrast on March 05. 2. Small cell lung cancer with metastasis, maintained on chemotherapy. 3. Hypervolemia, now improving with diuresis. PLAN: Continue with IV Lasix. Discontinue IV fluids. Encourage increased oral intake. Repeat labs in a.m. Monitor urine output. MMODL / IJN: [id number] / MTDD
[2020-03-08] MEDS: FAMOTIDINE 20 MG/2 ML VIAL IV SCH (20:06)
[2020-03-08] MEDS: HEPARIN SODIUM,PORCINE 5,000 UNIT/ML 1 ML VIAL SQ SCH (20:06)
[2020-03-08] MEDS: DEXAMETHASONE SOD PHOSPHATE 10 MG/ML 1 ML VIAL IV SCH ×2 (20:06→23:53)
[2020-03-08] MEDS: ONDANSETRON 16 MG in SODIUM CHLORIDE 0.9% 50 ML IVPB SCH (20:06)
[2020-03-08] MEDS: FAMOTIDINE 20 MG TAB PO SCH (20:14)
[2020-03-08 21:27] LABS: Glucose,Whole Blood 132 mg/dL (75-99)
[2020-03-08] MEDS: ETOPOSIDE 190 MG in SODIUM CHLORIDE 0.9% 500 ML 500 ML IV SCH (21:32)
--- NOTE | 2020-03-08 23:45 | P.PN ---
Subjective From records: This is a pleasant 69 years old male with hx of recently diagnosed lung cancer, COPD, diastolic CHF, HTN, HLD who presented to the ED with increasing shortness of breath. He was scheduled for his first cycle of chemotherapy yesterday but was noted to be hypoxic on room air and was therefore recommended to come to the ED. He denies any chest pain, fever or chills. He does endorse malaise and shortness of breath. On presentation he was tachycardic and hypoxic on room air, WBC 14k, Cr 1.4, BNP 300. CTA chest showing LLL mass with consolidation and obstruction. 03/08/2020 This is a pleasant 69 years old male with no medical problem was recently diagnosed with lung cancer and is scheduled to get chemotherapy however he was noticed to be hypoxic so he was reversed emergency room with dyspnea and hypoxia. CTA of the chest showing no PE, but lung mass with increase in size. Patient is seen and examined at bedside, his fully awake and oriented, he knows about his diagnosis of left lower lung cancer. Also per record he has m etastasis to the liver and the left adrenal gland. Patient presents with respiratory difficulty, he was hypoxic at 3-5 L/m. He was not on oxygen at home. CTA is negative for pulmonary embolism. Patient is a little dyspneic and tachypneic, however feels better than yesterday. He has a little little phlegm Coughing for a few days On examination he has coarse crepitations.no wheezing Patient has leukocytosis since admission with 14.2, currently is 11.0, patient has leukocytosis since 02/20/20 where it was 13.4 K We will check a pro-calcitonin and start the patient on Zosyn empirically and we can adjust medications based on further workup. Also we'll check for sputum culture and sensitivity Patient is already on Lasix 40 mg IV daily and we will continue. There is no evidence of significant wheezing, does why it did not start him on steroids. Start to subcutaneous heparin. Patient started on Pepcid Review of systems CONSTITUTIONAL: No fever, no malaise, no fatigue. HEENT: No recent visual problems or hearing problems. Denied any sore throat. CARDIOVASCULAR: No orthopnea, PND, no palpitations, no syncope. PULMONARY: No chest wall tenderness, no hemoptysis. GASTROINTESTINAL: No diarrhea, no nausea, no vomiting, no abdominal pain. Normoactive bowel sounds. NEUROLOGICAL: No headaches, no weakness, no numbness. HEMATOLOGICAL: Denies any bleeding or petechiae. GENITOURINARY: Denies any burning micturition, frequency, or urgency. MUSCULOSKELETAL/RHEUMATOLOGICAL: Denies any joint pain, swelling, or any muscle pain. ENDOCRINE: Denies any polyuria or polydipsia. Active Medications Generic Name Dose Route Start Last Admin Trade Name Freq PRN Reason Stop Dose Admin Acetaminophen 650 mg 03/06/20 08:59 Acetaminophen Tab 325 Mg Tab PO Q4HR PRN Fever and/ or Pain Albuterol/Ipratropium 3 ml 03/06/20 08:59 03/06/20 12:12 Ipratropium-Albuterol 3 Ml Neb INHALATION 3 ml RT-QID PRN Administration Shortness Of Breath Or Wheezing Dexamethasone Sodium Phosphate 6 mg 03/08/20 23:45 Dexamethasone Sod Phosphate 10 Mg/Ml 1 Ml Vial IV DAILY FUAD Famotidine 40 mg 03/06/20 21:00 03/08/20 20:14 Famotidine 20 Mg Tab PO Not Given HS FUAD Furosemide 40 mg 03/06/20 09:30 03/08/20 09:14 Furosemide 10 Mg/Ml 4 Ml Vial IV 40 mg DAILY FUAD Administration Heparin Sodium (Porcine) 5,000 unit 03/08/20 21:00 03/08/20 20:06 Heparin Sodium,Porcine 5,000 Unit/Ml 1 Ml Vial SQ 5,000 unit Q12HR FUAD Administration Piperacillin Sod/Tazobactam 100 mls @ 25 mls/hr 03/08/20 16:00 03/08/20 15:56 Sod 3.375 gm/ Sodium Chloride IVPB 25 mls/hr Q8HR FUAD Administration Insulin Aspart 0 unit 03/07/20 12:30 03/08/20 21:35 Insulin Aspart (Novolog) 100 Unit/Ml Vial SQ Not Given ACHS [facility] Protocol Loperamide HCl 2 mg 03/06/20 19:46 Loperamide 2 Mg Cap PO QID PRN Diarrhea Magnesium Hydroxide 2,400 mg 03/06/20 19:46 Magnesium Hydroxide 2,400 Mg/10 Ml Cup PO DAILY PRN Constipation Multivitamins 1 each 03/06/20 09:00 03/08/20 09:14 Multivitamins, Thera 1 Each Tab PO 1 each DAILY FUAD Administration Ondansetron HCl 4 mg 03/06/20 15:20 Ondansetron 4 Mg/2 Ml Vial IVP Q6HR PRN Nausea Sodium Bicarbonate 5 ml 03/06/20 20:00 03/08/20 20:06 Salt And Soda Mouthwash 1,000 Ml PO 5 ml 5XD FUAD Administration Objective - Vital Signs Vital signs: Vital Signs Temp 97.9 F 03/08/20 09:05 Pulse 94 03/08/20 09:05 Resp 12 03/08/20 09:05 BP 116/62 03/08/20 09:05 Pulse Ox 94 L 03/08/20 09:05 Intake & Output 03/07/20 03/08/20 03/08/20 18:59 06:59 18:59 Output Total 800 125 Balance -800 -125 Weight 74.9 kg 75.5 kg Output: Urine 800 125 Other: Voiding Method Urinal Urinal # Voids 3 3 - Exam GENERAL: The patient is alert and oriented x3, not in any acute distress. Well developed, well nourished. HEENT: Pupils are round and equally reacting to light. EOMI. No scleral icterus. No conjunctival pallor. Normocephalic, atraumatic. No pharyngeal erythema. No thyromegaly. CARDIOVASCULAR: S1 and S2 present. No murmurs, rubs, or gallops. -PULMONARY: Chest is clear to auscultation, no wheezing or crackles. Bilateral coarse crepitation ABDOMEN: Soft, nontender, nondistended, normoactive bowel sounds. No palpable organomegaly. MUSCULOSKELETAL: No joint swelling or deformity. -EXTREMITIES: No cyanosis, clubbing,. Bilateral pitting leg edema. NEUROLOGICAL: Gross neurological examination did not reveal any focal deficits. SKIN: No rashes. no petechiae. - Labs CBC & Chem 7: 03/08/20 06:13 03/08/20 06:13 Labs: Abnormal Lab Results - Last 24 Hours (Table) 03/07/20 03/07/20 03/07/20 Range/Units 12:05 13:14 13:14 WBC 12.0 H (3.8-10.6) k/uL RBC (4.30-5.90) m/uL Hgb (13.0-17.5) gm/dL Hct (39.0-53.0) % RDW 19.7 H (11.5-15.5) % Plt Count 127 L (150-450) k/uL Neutrophils # 11.4 H (1.3-7.7) k/uL Lymphocytes # 0.3 L (1.0-4.8) k/uL Sodium 133 L (137-145) mmol/L BUN 39 H (9-20) mg/dL Creatinine 1.27 H (0.66-1.25) mg/dL Glucose 110 H (74-99) mg/dL POC Glucose (mg/dL) 118 H (75-99) mg/dL Calcium 7.9 L (8.4-10.2) mg/dL Total Bilirubin 5.6 H (0.2-1.3) mg/dL AST 103 H (17-59) U/L ALT 194 H (4-49) U/L Alkaline Phosphatase 331 H (38-126) U/L Total Protein 5.0 L (6.3-8.2) g/dL Albumin 2.5 L (3.5-5.0) g/dL 03/07/20 03/07/20 03/08/20 Range/Units 16:01 20:57 06:13 WBC 11.0 H (3.8-10.6) k/uL RBC 4.20 L (4.30-5.90) m/uL Hgb 12.6 L (13.0-17.5) gm/dL Hct 37.5 L (39.0-53.0) % RDW 19.4 H (11.5-15.5) % Plt Count 106 L (150-450) k/uL Neutrophils # 10.6 H (1.3-7.7) k/uL Lymphocytes # 0.2 L (1.0-4.8) k/uL Sodium (137-145) mmol/L BUN (9-20) mg/dL Creatinine (0.66-1.25) mg/dL Glucose (74-99) mg/dL POC Glucose (mg/dL) 116 H 166 H (75-99) mg/dL Calcium (8.4-10.2) mg/dL Total Bilirubin (0.2-1.3) mg/dL AST (17-59) U/L ALT (4-49) U/L Alkaline Phosphatase (38-126) U/L Total Protein (6.3-8.2) g/dL Albumin (3.5-5.0) g/dL 03/08/20 Range/Units 07:37 WBC (3.8-10.6) k/uL RBC (4.30-5.90) m/uL Hgb (13.0-17.5) gm/dL Hct (39.0-53.0) % RDW (11.5-15.5) % Plt Count (150-450) k/uL Neutrophils # (1.3-7.7) k/uL Lymphocytes # (1.0-4.8) k/uL Sodium (137-145) mmol/L BUN (9-20) mg/dL Creatinine (0.66-1.25) mg/dL Glucose (74-99) mg/dL POC Glucose (mg/dL) 106 H (75-99) mg/dL Calcium (8.4-10.2) mg/dL Total Bilirubin (0.2-1.3) mg/dL AST (17-59) U/L ALT (4-49) U/L Alkaline Phosphatase (38-126) U/L Total Protein (6.3-8.2) g/dL Albumin (3.5-5.0) g/dL Microbiology - Last 24 Hours (Table) 03/05/20 13:55 Blood Culture - Preliminary Blood No Growth after 48 hours Assessment and Plan Assessment: Acute hypoxic respiratory failure 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 Acute on chronic diastolic CHF COPD Transaminitis History of GERD Hypertension Hyperlipidemia Osteoarthritis Plan: This is a pleasant 69 years male who presents with worsening respiratory function. His recently diagnosed with lung cancer. There is possibility of pneumonia and we will check for COPD. The meantime continue with Zosyn which is admitted today, continue with IV Lasix for like edema, there is no pulmonary congestion. Check postcalcitonin. Check a sputum culture and sensitivity. Check Covid 19 and inflammatory markers. Monitor labs. Patient is followed by nephrology and oncology teams. Labs and medication were reviewed.. Continue same treatment. Continue with symptomatic treatment. Resume home medication. Monitor lytes and vitals. DVT and GI prophylaxis. Further recommendationsas per clinical course of the patient DVT prophylaxis: Subcutaneous heparin GI Prophylaxis: Pepcid PT/OT: Pending Prognosis is guarded
[2020-03-09 06:26] LABS: Anisocytosis Slight; Basophils % (A) 0 %; Eosinophils % (A) 0 %; HCT 36.1 % (39.0-53.0); HGB 12.1 gm/dL (13.0-17.5); Lymphocytes # (A) 0.1 k/uL (1.0-4.8); Lymphocytes % (A) 2 %; MCH 29.8 pg (25.0-35.0); MCHC 33.5 g/dL (31.0-37.0); MCV 88.9 fL (80.0-100.0); Mean Platelet Volume 8.1; Monocytes # (A) 0.1 k/uL (0-1.0); Monocytes % (A) 1 %; Neutrophils # (A) 7.9 k/uL (1.3-7.7); Neutrophils % (A) 97 %; RBC 4.06 m/uL (4.30-5.90); RDW 19.3 % (11.5-15.5); WBC 8.1 k/uL (3.8-10.6)
[2020-03-09] MEDS: SALT AND SODA MOUTHWASH 1,000 ML PO SCH ×4 (07:17→21:25)
[2020-03-09 07:27] LABS: Glucose,Whole Blood 106 mg/dL (75-99)
[2020-03-09 07:30] LABS: Target Cells Present
[2020-03-09 07:31] LABS: Platelet Count 86 k/uL (150-450)
[2020-03-09] MEDS: INSULIN ASPART (NovoLOG) 100 UNIT/ML VIAL SQ SCH ×4 (07:34→21:24)
--- NOTE | 2020-03-09 07:57 | XR ---
EXAMINATION TYPE: XR chest 1V DATE OF EXAM: 03/09/2020 COMPARISON: 03/05/2020 INDICATION: Follow-up lung cancer TECHNIQUE: Single frontal view of the chest is obtained. FINDINGS: The heart size is normal. The pulmonary vasculature is normal. There is increased lung markings in the left lower lobe. Correlate for atelectasis or pneumonia. Recu rrent mass should be considered. IMPRESSION: 1. There is a left lower lobe area of increased opacity. Infectious etiology and neoplasm should be c onsidered.
[2020-03-09 09:16] LABS: African American GFR (CKD) 88.6 (60.0-200.0); Anion Gap 14.9 mmol/L (4.00-12.00); C Reactive Protein 1.7 mg/dL (0.0-0.8); Calcium 7.6 mg/dL (8.7-10.3); Carbon Dioxide 28.1 mmol/L (21.6-31.8); Ferritin 658.5 ng/mL (22.0-322.0); Non-African American GFR(CKD) 76.5 (60.0-200.0); Potassium 3.2 mmol/L (3.5-5.5)
[2020-03-09] MEDS: PIPERACILLIN-TAZOBACTAM 3.375 GM in SODIUM CHLORIDE 0.9% 100 ML IVPB SCH ×2 (09:17→16:06)
[2020-03-09] MEDS: FUROSEMIDE 10 MG/ML 4 ML VIAL IV SCH (09:18)
[2020-03-09] MEDS: DEXAMETHASONE SOD PHOSPHATE 10 MG/ML 1 ML VIAL IV SCH (09:18)
[2020-03-09] MEDS: HEPARIN SODIUM,PORCINE 5,000 UNIT/ML 1 ML VIAL SQ SCH ×2 (09:18→21:24)
[2020-03-09] MEDS: MULTIVITAMINS, THERA 1 EACH TAB PO SCH (09:19)
--- NOTE | 2020-03-09 09:59 | P.PN ---
Subjective From records: This is a pleasant 69 years old male with hx of recently diagnosed lung cancer, COPD, diastolic CHF, HTN, HLD who presented to the ED with increasing shortness of breath. He was scheduled for his first cycle of chemotherapy yesterday but was noted to be hypoxic on room air and was therefore recommended to come to the ED. He denies any chest pain, fever or chills. He does endorse malaise and shortness of breath. On presentation he was tachycardic and hypoxic on room air, WBC 14k, Cr 1.4, BNP 300. CTA chest showing LLL mass with consolidation and obstruction. 03/08/2020 This is a pleasant 69 years old male with no medical problem was recently diagnosed with lung cancer and is scheduled to get chemotherapy however he was noticed to be hypoxic so he was reversed emergency room with dyspnea and hypoxia. CTA of the chest showing no PE, but lung mass with increase in size. Patient is seen and examined at bedside, his fully awake and oriented, he knows about his diagnosis of left lower lung cancer. Also per record he has m etastasis to the liver and the left adrenal gland. Patient presents with respiratory difficulty, he was hypoxic at 3-5 L/m. He was not on oxygen at home. CTA is negative for pulmonary embolism. Patient is a little dyspneic and tachypneic, however feels better than yesterday. He has a little little phlegm Coughing for a few days On examination he has coarse crepitations.no wheezing Patient has leukocytosis since admission with 14.2, currently is 11.0, patient has leukocytosis since 02/20/20 where it was 13.4 K We will check a pro-calcitonin and start the patient on Zosyn empirically and we can adjust medications based on further workup. Also we'll check for sputum culture and sensitivity Patient is already on Lasix 40 mg IV daily and we will continue. There is no evidence of significant wheezing, does why it did not start him on steroids. Start to subcutaneous heparin. Patient started on Pepcid 03/09/2020 This is a pleasant 69 years old male with left lung cancer with metastasis to the liver and adrenal gland and with acute hypoxic respiratory failure Patient is awake and once I walked into the room he wants to go home, however I told him he still needs 5 L of oxygen, Néstor put him on dexamethasone for reported Covid however we are going to test covid again and if negative then consider stopping dexamethasone Patient denies dyspnea or chest pain. He is not coughing April. He has bilateral leg swelling and feet as well, is band is placed a bar in both legs., Postobstructive pneumonia is suspected and patient is placed on Zosyn. Currently patient getting chemotherapy by oncology team Objective - Vital Signs Vital signs: Vital Signs Temp 98.7 F 03/09/20 08:00 Pulse 103 H 03/09/20 08:00 Resp 20 03/09/20 08:00 BP 132/77 03/09/20 08:00 Pulse Ox 96 03/09/20 08:00 Intake & Output 03/08/20 03/09/20 03/09/20 18:59 06:59 18:59 Output Total 1750 200 Balance -1750 -200 Weight 75.5 kg Output: Urine 1750 200 Other: Voiding Method Urinal Urinal # Voids 5 5 - Labs CBC & Chem 7: 03/09/20 06:07 03/09/20 06:07 Labs: Abnormal Lab Results - Last 24 Hours (Table) 03/08/20 03/08/20 03/08/20 Range/Units 06:13 12:10 17:06 RBC (4.30-5.90) m/uL Hgb (13.0-17.5) gm/dL Hct (39.0-53.0) % RDW (11.5-15.5) % Plt Count (150-450) k/uL Neutrophils # (1.3-7.7) k/uL Lymphocytes # (1.0-4.8) k/uL D-Dimer (<0.60) mg/L FEU Potassium (3.5-5.5) mmol/L Chloride (96-109) mmol/L Anion Gap (4.00-12.00) mmol/L BUN 40.0 H (9.0-27.0) mg/dL BUN/Creatinine Ratio 40.00 H (12.00-20.00) Ratio Glucose (70-110) mg/dL POC Glucose (mg/dL) 111 H 132 H (75-99) mg/dL Calcium 7.7 L (8.7-10.3) mg/dL Ferritin (22.0-322.0) ng/mL Lactate Dehydrogenase (120-246) U/L C-Reactive Protein (0.0-0.8) mg/dL Procalcitonin (0.02-0.09) ng/mL 03/08/20 03/09/20 03/09/20 Range/Units 21:07 06:07 06:07 RBC (4.30-5.90) m/uL Hgb (13.0-17.5) gm/dL Hct (39.0-53.0) % RDW (11.5-15.5) % Plt Count (150-450) k/uL Neutrophils # (1.3-7.7) k/uL Lymphocytes # (1.0-4.8) k/uL D-Dimer 1.77 H (<0.60) mg/L FEU Potassium (3.5-5.5) mmol/L Chloride (96-109) mmol/L Anion Gap (4.00-12.00) mmol/L BUN (9.0-27.0) mg/dL BUN/Creatinine Ratio (12.00-20.00) Ratio Glucose (70-110) mg/dL POC Glucose (mg/dL) 132 H (75-99) mg/dL Calcium (8.7-10.3) mg/dL Ferritin (22.0-322.0) ng/mL Lactate Dehydrogenase (120-246) U/L C-Reactive Protein (0.0-0.8) mg/dL Procalcitonin 37.07 H (0.02-0.09) ng/mL 03/09/20 03/09/20 03/09/20 Range/Units 06:07 06:07 07:17 RBC 4.06 L (4.30-5.90) m/uL Hgb 12.1 L (13.0-17.5) gm/dL Hct 36.1 L (39.0-53.0) % RDW 19.3 H (11.5-15.5) % Plt Count 86 L (150-450) k/uL Neutrophils # 7.9 H (1.3-7.7) k/uL Lymphocytes # 0.1 L (1.0-4.8) k/uL D-Dimer (<0.60) mg/L FEU Potassium 3.2 L (3.5-5.5) mmol/L Chloride 94 L (96-109) mmol/L Anion Gap 14.90 H (4.00-12.00) mmol/L BUN 41.0 H (9.0-27.0) mg/dL BUN/Creatinine Ratio 41.00 H (12.00-20.00) Ratio Glucose 119 H (70-110) mg/dL POC Glucose (mg/dL) 106 H (75-99) mg/dL Calcium 7.6 L (8.7-10.3) mg/dL Ferritin 658.5 H (22.0-322.0) ng/mL Lactate Dehydrogenase 349 H (120-246) U/L C-Reactive Protein 1.7 H (0.0-0.8) mg/dL Procalcitonin (0.02-0.09) ng/mL Microbiology - Last 24 Hours (Table) 03/05/20 13:55 Blood Culture - Preliminary Blood No Growth after 72 hours Assessment and Plan Assessment: Acute hypoxic respiratory failure 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 Acute on chronic diastolic CHF COPD Transaminitis History of GERD Hypertension Hyperlipidemia Osteoarthritis Plan: This is a pleasant 69 years male who presents with worsening respiratory function. His recently diagnosed with lung cancer. There is possibility of pneumonia and we will check for COPD. The meantime continue with Zosyn which is admitted today, continue with IV Lasix for like edema, there is no pulmonary congestion. Check a sputum culture and sensitivity. Check Covid 19 and inflammatory markers. Monitor labs. Patient is followed by nephrology and oncology teams. The lab results for covid again and if negative then consider stopping dexamethasone Labs and medication were reviewed.. Continue same treatment. Continue with symptomatic treatment. Resume home medication. Monitor lytes and vitals. DVT and GI prophylaxis. Further recommendationsas per clinical course of the patient DVT prophylaxis: Subcutaneous heparin GI Prophylaxis: Pepcid PT/OT: Pending Prognosis is guarded
[2020-03-09 11:27] LABS: Glucose,Whole Blood 110 mg/dL (75-99)
[2020-03-09] MEDS ORDERED: Potassium Replacement Protocol 1 EACH MISC MISCELLANE PRN (11:27)
--- NOTE | 2020-03-09 14:59 | PN ---
PROGRESS NOTE Patient is seen for followup for acute kidney injury. He is currently being diuresed for volume overload. Patient is maintained on IV Lasix. He is also receiving chemotherapy. Serum creatinine is fairly stable at 1.0 mg/dL. PHYSICAL EXAMINATION: Today patient is comfortable. Blood pressure is 132/77, heart rate 103 per minute, he is afebrile. Examination of the heart S1, S2. Examination of the lungs, bilateral breath sounds are heard. Decreased breath sounds at bases. Abdomen is soft, nontender. Examination of lower extremities shows edema 1+ bilaterally. [employer] exam grossly intact. LAB: Show sodium 137, potassium 3.2, chloride 94, BUN of 41, creatinine 1.0, hemoglobin 12.1 g/dL. ASSESSMENT: 1. Volume overload, currently improved. Continue with the IV Lasix. 2. Small cell lung cancer with mets to the liver and adrenal gland, maintained on chemotherapy. 3. Acute hypoxic respiratory failure secondary to volume overload congestive heart failure. 4. Acute on chronic diastolic congestive heart failure. 5. Chronic obstructive pulmonary disease. PLAN: Continue with the IV Lasix for now. Continue to monitor renal function and electrolytes. Continue off IV fluids. Encourage increased oral intake. MMODL / IJN: [id number] /
[2020-03-09 16:30] LABS: Glucose,Whole Blood 151 mg/dL (75-99)
[2020-03-09 20:11] LABS: Glucose,Whole Blood 172 mg/dL (75-99)
[2020-03-09] MEDS: FAMOTIDINE 20 MG TAB PO SCH (21:24)
[2020-03-10] MEDS: SALT AND SODA MOUTHWASH 1,000 ML PO SCH ×5 (06:11→21:10)
[2020-03-10 07:13] LABS: Glucose,Whole Blood 99 mg/dL (75-99)
[2020-03-10] MEDS: INSULIN ASPART (NovoLOG) 100 UNIT/ML VIAL SQ SCH ×4 (07:16→21:10)
[2020-03-10] MEDS: PIPERACILLIN-TAZOBACTAM 3.375 GM in SODIUM CHLORIDE 0.9% 100 ML IVPB SCH ×4 (07:44→18:02)
[2020-03-10] MEDS: DEXAMETHASONE SOD PHOSPHATE 10 MG/ML 1 ML VIAL IV SCH (07:45)
[2020-03-10] MEDS: FUROSEMIDE 10 MG/ML 4 ML VIAL IV SCH (07:46)
[2020-03-10] MEDS: MULTIVITAMINS, THERA 1 EACH TAB PO SCH (07:47)
[2020-03-10] MEDS: HEPARIN SODIUM,PORCINE 5,000 UNIT/ML 1 ML VIAL SQ SCH ×2 (07:47→21:10)
[2020-03-10 09:22] LABS: Anisocytosis Slight; Basophils % (A) 0 %; Eosinophils # (A) 0.1 k/uL (0-0.7); Eosinophils % (A) 1 %; HCT 38.8 % (39.0-53.0); Lymphocytes # (A) 0.2 k/uL (1.0-4.8); Lymphocytes % (A) 2 %; MCH 29.5 pg (25.0-35.0); MCHC 33.3 g/dL (31.0-37.0); MCV 88.3 fL (80.0-100.0); Mean Platelet Volume 8.6; Monocytes # (A) 0.1 k/uL (0-1.0); Monocytes % (A) 1 %; Neutrophils # (A) 7.6 k/uL (1.3-7.7); Neutrophils % (A) 96 %; RDW 19.5 % (11.5-15.5); WBC 7.9 k/uL (3.8-10.6)
[2020-03-10 09:33] LABS: Platelet Count 70 k/uL (150-450)
[2020-03-10 10:28] LABS: ALT 138 U/L (4-49); AST 92 U/L (17-59); African American GFR (CKD) 87 (>60 ml/min/1.73 sqM); Albumin 2.3 g/dL (3.5-5.0); Alkaline Phosphatase 315 U/L (38-126); Anion Gap 1 mmol/L; Blood Urea Nitrogen 39 mg/dL (9-20); Calcium 7.6 mg/dL (8.4-10.2); Carbon Dioxide 32 mmol/L (22-30); Chloride 101 mmol/L (98-107); Globulin 2.3 g/dL; Glucose 132 mg/dL (74-99); Magnesium 2.3 mg/dL (1.6-2.3); Non-African American GFR(CKD) 75 (>60 ml/min/1.73 sqM); Sodium 134 mmol/L (137-145); Total Bilirubin 5.6 mg/dL (0.2-1.3); Total Protein 4.6 g/dL (6.3-8.2)
[2020-03-10 10:32] LABS: Potassium 2.6 mmol/L (3.5-5.1)
[2020-03-10] MEDS: POTASSIUM CHLORIDE ER 20 MEQ TAB.ER PO SCH ×3 (11:16→15:44)
[2020-03-10] MEDS: POTASSIUM CHLORIDE 20 MEQ in WATER FOR INJECTION 1 100ML.BAG IVPB SCH ×3 (11:17→15:44)
[2020-03-10 11:21] LABS: Glucose,Whole Blood 104 mg/dL (75-99)
--- NOTE | 2020-03-10 12:21 | P.PN ---
Subjective Progress Note Date: 03/10/20 Paulo Stuart is a 69 yo M with hx of recently diagnosed lung cancer, COPD, diastolic CHF, HTN, HLD who presented to the ED with increasing shortness of breath. He was scheduled for his first cycle of chemotherapy yesterday but was noted to be hypoxic on room air and was therefore recommended to come to the ED. He denies any chest pain, fever or chills. He does endorse malaise and shortness of breath. On presentation he was tachycardic and hypoxic on room air, WBC 14k, Cr 1.4, BNP 300. CTA chest showing LLL mass with consolidation and obstruction. 03/07/2020 and received first chemotherapy yesterday. Tolerated well. Denies nausea or vomiting. No diarrhea. Scheduled for second dose of chemotherapy today. Diuresing well on Lasix IV push with 24-hour I&O reflecting a negative fluid balance.. Denies chest pain, palpitations or increased shortness of breath. Maintaining O2 sats in the 90s on 5 L nasal cannula. Mild tachycardia. Afebrile 03/10/2020 completed third bag of chemotherapy yesterday. Tolerated well. Denies nausea vomiting or diarrhea. Maintained on Zosyn for now. Occasional cough. Coronavirus not detected. Continues requirinf 5 L nasal cannula to maintain O2 sats in the 90s. Diuresing well on Lasix IV push, creatinine 1.02. Potassium 2.6 , magnesium 2.3.Denies chest pain, palpitations. Objective - Vital Signs Vital signs: Vital Signs Temp 97.8 F 03/10/20 04:25 Pulse 101 H 03/10/20 04:25 Resp 16 03/10/20 04:25 BP 107/72 03/10/20 04:25 Pulse Ox 91 L 03/10/20 04:25 Intake & Output 03/09/20 03/10/20 03/10/20 18:59 06:59 18:59 Output Total 950 475 Balance -950 -475 Weight 72.5 kg Output: Urine 950 475 Other: Voiding Method Urinal Urinal - Exam General: Sitting up in bed, no acute distress Eyes: PERRL, EOMI, conjunctiva normal HENT: normocephalic, mucus membranes moist Neck: supple, no JVD Lungs: normal respiratory effort, no rhonchi, no wheezing, left basilar crackles CV: Regular rate and rhythm, no murmur. Peripheral pulses 2+ Abdomen: soft, nondistended, no organomegaly, positive bowel sounds Skin: warm and dry. Decreasing edema bilateral lower extremities. Bilateral lower extremities Iraj wrap clean dry and intact. Neuro: A&Ox3, - Labs CBC & Chem 7: 03/10/20 09:09 03/10/20 09:09 Labs: Abnormal Lab Results - Last 24 Hours (Table) 03/09/20 03/09/20 03/09/20 Range/Units 06:07 06:07 11:14 Potassium 3.2 L (3.5-5.5) mmol/L Chloride 94 L (96-109) mmol/L Anion Gap 14.90 H (4.00-12.00) mmol/L BUN 41.0 H (9.0-27.0) mg/dL BUN/Creatinine Ratio 41.00 H (12.00-20.00) Ratio Glucose 119 H (70-110) mg/dL POC Glucose (mg/dL) 110 H (75-99) mg/dL Calcium 7.6 L (8.7-10.3) mg/dL Ferritin 658.5 H (22.0-322.0) ng/mL Lactate Dehydrogenase 349 H (120-246) U/L C-Reactive Protein 1.7 H (0.0-0.8) mg/dL Procalcitonin 37.07 H (0.02-0.09) ng/mL 03/09/20 03/09/20 Range/Units 16:26 20:00 Potassium (3.5-5.5) mmol/L Chloride (96-109) mmol/L Anion Gap (4.00-12.00) mmol/L BUN (9.0-27.0) mg/dL BUN/Creatinine Ratio (12.00-20.00) Ratio Glucose (70-110) mg/dL POC Glucose (mg/dL) 151 H 172 H (75-99) mg/dL Calcium (8.7-10.3) mg/dL Ferritin (22.0-322.0) ng/mL Lactate Dehydrogenase (120-246) U/L C-Reactive Protein (0.0-0.8) mg/dL Procalcitonin (0.02-0.09) ng/mL Microbiology - Last 24 Hours (Table) 03/05/20 13:55 Blood Culture - Preliminary Blood No Growth after 96 hours Assessment and Plan Assessment: (1) Acute hypoxemic respiratory failure Current Visit: Yes Status: Acute Code(s): J96.01 - ACUTE RESPIRATORY FAILURE WITH HYPOXIA SNOMED Code(s): 892715658 (2) Acute on chronic diastolic CHF (congestive heart failure), NYHA class 3 Current Visit: Yes Status: Acute Code(s): I50.33 - ACUTE ON CHRONIC DIASTOLIC (CONGESTIVE) HEART FAILURE SNOMED Code(s): 526239755 (3) possible postobstructive pneumonia (4) Hyperbilirubinemia Current Visit: Yes Status: Acute Code(s): E80.6 - OTHER DISORDERS OF BILIRUBIN METABOLISM SNOMED Code(s): 96091114 (5) Liver metastases Current Visit: Yes Status: Acute Priority: High Code(s): C78.7 - SECONDARY MALIG NEOPLASM OF LIVER AND INTRAHEPATIC BILE DUCT SNOMED Code(s): 06405816 (6) Small cell lung cancer Current Visit: Yes Status: Acute Priority: High Code(s): C34.90 - MALIGNANT NEOPLASM OF UNSP PART OF UNSP BRONCHUS OR LUNG SNOMED Code(s): 199848383 (7) Transaminitis Current Visit: Yes Status: Acute Priority: High Code(s): R74.01 - ELEVATION OF LEVELS OF LIVER TRANSAMINASE LEVELS SNOMED Code(s): 466060700 (8) hypokalemia Plan:Continue on current medication regime ,monitoring and symptomatic treatment. Potassium replacement as per previously ordered replacement protocol now , with recheck potassium level at 1600. Attempting weaning down of oxygen with aggressive pulmonary toileting. Maintain nebulized bronchodilators, steroids Continue diuresing. Close monitoring of hematology, renal function, electrolytes, labs ordered. The impression and plan of care has been dictated as directed. : I performed a history and examination of this patient, discussed the same with the dictator. I agree with the dictator's note ,documented as a scribe. Any additional findings or plans will be noted.
--- NOTE | 2020-03-10 12:47 | PN ---
PROGRESS NOTE Patient is seen for followup for volume overload, chronic kidney disease. He did have mild acute kidney injury, which has improved. Creatinine down from about 1.27-1.02. The patient remains on diuretics. PHYSICAL EXAMINATION: Today patient is comfortable, awake. He denies any significant complaints. Blood pressure was 107/72, heart rate 104 per minute, patient is afebrile. Examination of the heart S1, S2. Examination of lungs decreased breath sounds at bases. Minimal basal crackles are heard. Abdomen is soft, nontender. Examination lower extremities shows edema 1+ bilaterally. [employer]IST exam grossly intact. LABS: Show sodium 134, potassium 2.6, chloride 101, BUN 39, serum creatinine 1.02, hemoglobin 13.0 g/dL. Magnesium was 2.3. ASSESSMENT: 1. Acute kidney injury cardiorenal currently improved. 2. Volume overload. Patient is maintained on IV Lasix. 3. Hypokalemia secondary to diuresis status post replacement. 4. Small cell lung cancer with mets to the liver and adrenal gland, maintained on chemotherapy. 5. Acute hypoxic respiratory failure secondary to volume overload, now improved. 6. Chronic obstructive pulmonary disease. PLAN: Continue the IV Lasix. Replace potassium. Repeat labs in a.m. MMODL / IJN: [id number] /
[2020-03-10 17:17] LABS: Glucose,Whole Blood 128 mg/dL (75-99)
--- NOTE | 2020-03-10 19:47 | P.PN ---
Subjective Progress Note Date: 03/10/20 Principal diagnosis: Progressive Disease Status post first cycle of chemotherapy, Carbo/VP16. His blood counts have started to decrease, liver function stable. He is on lasix daily, and potassium critically low today, supplemented per primary team. Daily potassium supp added with daily lasix. Oxygenation continues to decrease, chest xray performed yesterday, suspicious for possible infectious etiology and zosyn is continued, COVID neg. He still has occassional cough and edema although overall no new complaints. Would like incentive spirometer and increased passive ROM with PT/OT Objective - Vital Signs Vital signs: Vital Signs Temp 97.2 F L 03/10/20 12:05 Pulse 112 H 03/10/20 12:05 Resp 18 03/10/20 12:05 BP 92/61 03/10/20 12:05 Pulse Ox 93 L 03/10/20 12:05 Intake & Output 03/10/20 03/10/20 03/11/20 06:59 18:59 06:59 Intake Total 150 Output Total 1625 Balance -1475 Weight 72.5 kg Intake: Oral 150 Output: Urine 1625 Other: Voiding Method Urinal Urinal # Bowel Movements 1 - Exam - Constitutional General appearance: average body habitus, cooperative, no acute distress - EENT Eyes: EOMI, scleral icterus ENT: hearing grossly normal, normal oropharynx - Neck Neck: no lymphadenopathy - Respiratory Respiratory: bilateral: CTA, diminished, rales (few scattered anterior) - Cardiovascular Rhythm: regular Heart sounds: normal: S1, S2 Abnormal Heart Sounds: no systolic murmur, no diastolic murmur, no rub, no S3 Ga llop, no S4 Gallop, no click, no other leg Peripheral Edema: bilateral: 3+, Pitting - Gastrointestinal General gastrointestinal: no absent bowel sounds, no decreased bowel sounds, distended, hepatomegaly, no hyperactive bowel sounds, normal bowel sounds, no organomegaly, no rigid, no scaphoid, soft, no splenomegaly, no tenderness, no umbilical hernia, no ventral hernia - Integumentary Integumentary: jaundiced - Neurologic Neurologic: CNII-XII intact - Musculoskeletal Musculoskeletal: generalized weakness - Psychiatric Psychiatric: A&O x's 3, appropriate affect, intact judgment & insight - Labs CBC & Chem 7: 03/10/20 09:09 03/10/20 09:09 Labs: Abnormal Lab Results - Last 24 Hours (Table) 03/09/20 03/10/20 03/10/20 Range/Units 20:00 09:09 09:09 Hct 38.8 L (39.0-53.0) % RDW 19.5 H (11.5-15.5) % Plt Count 70 L (150-450) k/uL Lymphocytes # 0.2 L (1.0-4.8) k/uL Sodium 134 L (137-145) mmol/L Potassium 2.6 L* (3.5-5.1) mmol/L Carbon Dioxide 32 H (22-30) mmol/L BUN 39 H (9-20) mg/dL Glucose 132 H (74-99) mg/dL POC Glucose (mg/dL) 172 H (75-99) mg/dL Calcium 7.6 L (8.4-10.2) mg/dL Total Bilirubin 5.6 H (0.2-1.3) mg/dL AST 92 H (17-59) U/L ALT 138 H (4-49) U/L Alkaline Phosphatase 315 H (38-126) U/L Total Protein 4.6 L (6.3-8.2) g/dL Albumin 2.3 L (3.5-5.0) g/dL 03/10/20 03/10/20 Range/Units 11:19 17:15 Hct (39.0-53.0) % RDW (11.5-15.5) % Plt Count (150-450) k/uL Lymphocytes # (1.0-4.8) k/uL Sodium (137-145) mmol/L Potassium (3.5-5.1) mmol/L Carbon Dioxide (22-30) mmol/L BUN (9-20) mg/dL Glucose (74-99) mg/dL POC Glucose (mg/dL) 104 H 128 H (75-99) mg/dL Calcium (8.4-10.2) mg/dL Total Bilirubin (0.2-1.3) mg/dL AST (17-59) U/L ALT (4-49) U/L Alkaline Phosphatase (38-126) U/L Total Protein (6.3-8.2) g/dL Albumin (3.5-5.0) g/dL Microbiology - Last 24 Hours (Table) 03/05/20 13:55 Blood Culture - Preliminary Blood No Growth after 120 hours Assessment and Plan Plan: Chest x-ray: report reviewed CT scan - chest: report reviewed Assessment and Plan Extensive Stage Small cell lung cancer - Status POst cycle one of emergent inpatient chemotherapy - Monitor daily CBC, CMP - MOnitor Clinically Diffuse Liver metastases: Transaminitis - Monitor daily - MOnitor COags and bleeding, especially as platelets start to trend down. Thrombocytopenia: - Check COags and monitor Daily CBC Severe Hypokalemia: - Supped per primary team - Add K-dur daily with daily Lasix - Monitor daily along with Mag per primary and nephrology Acute Hypoxic Respiratory Failure: - Oxygen maintained on 5L, although mild worsening over weekend - Diuresis per primary team - Chest Xray, question infectious etiology - continued on Zosyn - Please encourage incentive spirometer and increasing activity with PT/OT (passive if needed) up in chair Severe Bilateral Lower Extremity Edema: - Likely secondary to progressive liver mets and rapidly progressive disease Plan: - Incentive SPirometer - Monitor Daily Labs please and check coags with decreasing platelets and elevated LFTs - Encourage Activity.Ask for daily PT/OT to continue to work with patient to maintain muscle strength and prevent further atrophy - In chair daily Doctor attests: I performed a history and physical examination of this patient, developed impression and plan of care. Discussed with dictator. I agree with dictators note, documented as a scribe.
[2020-03-10 20:20] LABS: Glucose,Whole Blood 149 mg/dL (75-99)
[2020-03-10 20:31] LABS: African American GFR (CKD) >90 (>60 ml/min/1.73 sqM); Anion Gap 5 mmol/L; Blood Urea Nitrogen 42 mg/dL (9-20); Calcium 7.4 mg/dL (8.4-10.2); Carbon Dioxide 29 mmol/L (22-30); Chloride 102 mmol/L (98-107); Glucose 172 mg/dL (74-99); Non-African American GFR(CKD) 84 (>60 ml/min/1.73 sqM); Potassium 3.9 mmol/L (3.5-5.1); Sodium 136 mmol/L (137-145)
[2020-03-10] MEDS ORDERED: Potassium Replacement Protocol 1 EACH MISC MISCELLANE PRN (20:35)
[2020-03-10] MEDS: FAMOTIDINE 20 MG TAB PO SCH (21:10)
[2020-03-10] MEDS: POTASSIUM CHLORIDE 10 MEQ in WATER FOR INJECTION 1 100ML.BAG IVPB SCH ×2 (21:10→23:30)
[2020-03-11] MEDS: SALT AND SODA MOUTHWASH 1,000 ML PO SCH ×3 (01:00→14:28)
[2020-03-11] MEDS: PIPERACILLIN-TAZOBACTAM 3.375 GM in SODIUM CHLORIDE 0.9% 100 ML IVPB SCH ×4 (01:00→23:48)
[2020-03-11 06:18] LABS: Anisocytosis Slight; Basophils % (A) 0 %; Eosinophils % (A) 0 %; HCT 39.6 % (39.0-53.0); HGB 13.1 gm/dL (13.0-17.5); Lymphocytes # (A) 0.2 k/uL (1.0-4.8); Lymphocytes % (A) 5 %; MCH 29.9 pg (25.0-35.0); MCV 90.5 fL (80.0-100.0); Mean Platelet Volume 8.8; Monocytes # (A) 0.1 k/uL (0-1.0); Monocytes % (A) 1 %; Neutrophils # (A) 4.5 k/uL (1.3-7.7); Neutrophils % (A) 94 %; RBC 4.38 m/uL (4.30-5.90); RDW 19.7 % (11.5-15.5); WBC 4.8 k/uL (3.8-10.6)
[2020-03-11 06:23] LABS: Platelet Count 47 k/uL (150-450)
[2020-03-11 06:30] LABS: Partial Thromboplastin Time 23.6 sec (22.0-30.0); Prothrombin Time 10.5 sec (9.0-12.0)
[2020-03-11 07:13] LABS: Glucose,Whole Blood 106 mg/dL (75-99)
[2020-03-11] MEDS: INSULIN ASPART (NovoLOG) 100 UNIT/ML VIAL SQ SCH ×4 (07:39→20:39)
[2020-03-11] MEDS ORDERED: PROPOFOL 10 MG/ML 20 ML VIAL IV ONE (07:49)
[2020-03-11] MEDS ORDERED: SUCCINYLCHOLINE CHLORIDE VIAL 200 MG/10 ML VIAL IV ONE (07:49)
[2020-03-11] MEDS: MULTIVITAMINS, THERA 1 EACH TAB PO SCH (08:13)
[2020-03-11] MEDS: HEPARIN SODIUM,PORCINE 5,000 UNIT/ML 1 ML VIAL SQ SCH ×2 (08:13→20:39)
[2020-03-11] MEDS: POTASSIUM CHLORIDE ER 20 MEQ TAB.ER PO SCH ×2 (08:13→20:37)
[2020-03-11] MEDS: FUROSEMIDE 10 MG/ML 4 ML VIAL IV SCH (08:13)
[2020-03-11] MEDS: DEXAMETHASONE SOD PHOSPHATE 10 MG/ML 1 ML VIAL IV SCH (08:13)
[2020-03-11] MEDS: IPRATROPIUM-ALBUTEROL 3 ML NEB INHALATION PRN (08:19)
[2020-03-11] MEDS ORDERED: IPRATROPIUM-ALBUTEROL 3 ML NEB INHALATION PRN (09:16)
--- NOTE | 2020-03-11 09:22 | XR ---
EXAMINATION TYPE: XR chest 1V portable DATE OF EXAM: 03/11/2020 COMPARISON: Prior chest x-ray dated 03/09/2020 HISTORY: Shortness of breath TECHNIQUE: Single frontal view of the chest is obtained. FINDINGS: There is interval near complete opacification of the left hemithorax. There is volume loss . No evident pneumothorax. Heart is obscured. Mediastinal shift, tracheal shift noted. IMPRESSION: Interval near complete opacification left hemithorax consistent with atelectasis, possib le associated pneumonia, difficult to exclude effusion.
[2020-03-11 09:55] LABS: African American GFR (CKD) 88.6 (60.0-200.0); Albumin 2.9 g/dL (3.80-4.90); Albumin/Globulin Ratio 1.93 (1.60-3.17); Anion Gap 10.8 mmol/L (4.00-12.00); Bilirubin, Conjugated 4.2 mg/dL (0.20-0.40); Bilirubin,Unconjugated 1.4 mg/dL; Calcium 7.9 mg/dL (8.7-10.3); Carbon Dioxide 29.2 mmol/L (21.6-31.8); Globulin 1.5 g/dL (1.6-3.3); Magnesium 2.3 mg/dL (1.5-2.4); Non-African American GFR(CKD) 76.5 (60.0-200.0); Potassium 4.4 mmol/L (3.5-5.5); Total Bilirubin 5.6 mg/dL (0.3-1.2); Total Protein 4.4 g/dL (6.2-8.2)
[2020-03-11 10:40] LABS: Glucose,Whole Blood 130 mg/dL (75-99)
[2020-03-11] MEDS ORDERED: propofoL 100 ML IV ONE (11:29)
[2020-03-11] MEDS ORDERED: CHLORHEXIDINE GLUCONATE 15 ML CUP MUCOUS MEM ONE (11:33)
--- NOTE | 2020-03-11 12:00 | ECHOF ---
Referral Reason:SOB MEASUREMENTS -------- HEIGHT: 172.7 cm WEIGHT: 72.6 kg BP: RVIDd: 1.9 cm (< 3.3) IVSd: 1.5 cm (0.6 - 1.1) LVIDd: 2.1 cm (3.9 - 5.3) LVPWd: 1.4 cm (0.6 - 1.1) IVSs: 1.6 cm LVIDs: 1.2 cm LVPWs: 1.4 cm Ao Diam: 2.7 cm (2.0 - 3.7) AV Cusp: 1.7 cm (1.5 - 2.6) LA Diam: 2.5 cm (2.7 - 3.8) MV EXCURSION: 11.453 mm (> 18.000) MV EF SLOPE: 41 mm/s (70 - 150) EPSS: 0.4 cm MV E Eladio: 1.15 m/s MV DecT: 67 ms MV A Eladio: 0.67 m/s MV E/A Ratio: 1.71 RAP: 5.00 mmHg RVSP: 51.11 mmHg FINDINGS -------- Sinus rhythm. Resting tachycardia (HR>100bpm). This was a technically adequate study. The left ventricular size is normal. There is moderate concentric left ventricular hypertrophy. O verall left ventricular systolic function is normal with, an EF between 55 - 60 %. The right ventricle is normal in size. The left atrial size is normal. The right atrial size is normal. The aortic valve is trileaflet, and appears structurally normal. No aortic stenosis or regurgitation. The mitral valve is normal. There is trace mitral regurgitation. The tricuspid valve appears structurally normal. Mild tricuspid regurgitation present. There is m oderate pulmonary hypertension. The right ventricular systolic pressure, as measured by Doppler, is 51.11mmHg. There is no pulmonic regurgitation present. The aortic root size is normal. Normal inferior vena cava with normal inspiratory collapse consistent with estimated right atrial pre ssure of 5 mmHg. There is no pericardial effusion. CONCLUSIONS -------- 1. There is moderate concentric left ventricular hypertrophy. 2. Overall left ventricular systolic function is normal with, an EF between 55 - 60 %. 3. The aortic valve is trileaflet, and appears structurally normal. No aortic stenosis or regurgitati on. 4. There is trace mitral regurgitation. 5. Mild tricuspid regurgitation present. 6. There is moderate pulmonary hypertension. 7. There is no pericardial effusion. DIRECT SERVICE PROVIDER: Alejandra Leyva RDCS
[2020-03-11] MEDS ORDERED: CISATRACURIUM 2 MG/ML 5 ML VIAL IV ONE ×2 (12:02→12:04)
--- NOTE | 2020-03-11 12:08 | XR ---
EXAMINATION TYPE: XR chest 1V portable DATE OF EXAM: 03/11/2020 Comparison: 03/11/2020 Clinical History: 69-year-old male ET tube placement Findings: ET tube is satisfactory. Redemonstrated is volume loss and opacification of the left hemithorax with shift of the heart. Right lung and pleural space remain clear. Impression: Post pneumectomy change on the left. ET tube satisfactory. Right lung and pleural space appear clear.
[2020-03-11 12:10] LABS: Magnesium 2.2 mg/dL (1.5-2.4)
[2020-03-11 12:24] LABS: ABG Base Excess 4.1 mmol/L; ABG HCO3 29 mmol/L (21-25); ABG Oxygen Saturation 99.4 % (94-97); ABG PCO2 50 mmHg (35-45); ABG PH 7.38 (7.35-7.45); ABG PO2 172 mmHg (83-108); ABG TCO2 31 mmol/L (19-24)
[2020-03-11] MEDS ORDERED: VANCOMYCIN IV PER PHARMACY 1 EACH MISC MISCELLANE PRN (12:32)
[2020-03-11] MEDS: IPRATROPIUM-ALBUTEROL 3 ML NEB INHALATION SCH ×3 (12:53→20:23)
--- NOTE | 2020-03-11 13:13 | XR ---
EXAMINATION TYPE: XR chest 1V confirm line [facility] DATE OF EXAM: 03/11/2020 COMPARISON: Earlier today HISTORY: 69-year-old male Central line placement TECHNIQUE: Single frontal view of the chest is obtained. FINDINGS: New right IJ CVC tip in the right atrium. ET tube remains satisfactory. There remains significant vol ume loss within the left hemithorax with the heart located in the left side of the chest but with imp roving aeration in the left upper lung. Underlying extensive opacity mid and lower lung remains. Righ t lung remains clear. IMPRESSION: 1. Satisfactory ET tube with improving aeration in the left upper lobe but with persistent severe vol ume loss in the left hemithorax and extensive mid and lower lung opacity. 2. Right IJ CVC tip in the right atrium.
--- NOTE | 2020-03-11 13:45 | P.PN ---
Subjective Progress Note Date: 03/11/20 Paulo Stuart is a 69 yo M with hx of recently diagnosed lung cancer, COPD, diastolic CHF, HTN, HLD who presented to the ED with increasing shortness of breath. He was scheduled for his first cycle of chemotherapy yesterday but was noted to be hypoxic on room air and was therefore recommended to come to the ED. He denies any chest pain, fever or chills. He does endorse malaise and shortness of breath. On presentation he was tachycardic and hypoxic on room air, WBC 14k, Cr 1.4, BNP 300. CTA chest showing LLL mass with consolidation and obstruction. 03/07/2020 and received first chemotherapy yesterday. Tolerated well. Denies nausea or vomiting. No diarrhea. Scheduled for second dose of chemotherapy today. Diuresing well on Lasix IV push with 24-hour I&O reflecting a negative fluid balance.. Denies chest pain, palpitations or increased shortness of breath. Maintaining O2 sats in the 90s on 5 L nasal cannula. Mild tachycardia. Afebrile 03/10/2020 completed third bag of chemotherapy yesterday. Tolerated well. Denies nausea vomiting or diarrhea. Maintained on Zosyn for now. Occasional cough. Coronavirus not detected. Continues requirinf 5 L nasal cannula to maintain O2 sats in the 90s. Diuresing well on Lasix IV push, creatinine 1.02. Potassium 2.6 , magnesium 2.3.Denies chest pain, palpitations. 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 Developed increased shortness of breath, tachycardia. Heart rate currently 122, maintaining O2 sats of 83% on 15 L high flow nasal cannula- nonrebreather at bedside. Recently received IV push Lasix. Labs pending. Objective - Vital Signs Vital signs: Vital Signs Temp 97.5 F L 03/11/20 05:20 Pulse 121 H 03/11/20 08:33 Resp 20 03/11/20 05:20 BP 129/78 03/11/20 05:20 Pulse Ox 92 L 03/11/20 07:18 Intake & Output 03/10/20 03/11/20 03/11/20 18:59 06:59 18:59 Intake Total 150 Output Total 1625 Balance -1475 Weight 73 kg Intake: Oral 150 Output: Urine 1625 Other: Voiding Method Urinal Urinal Urinal # Bowel Movements 1 - Exam General: Sitting up in bed, short of breath, respiratory effort increased Eyes: PERRL, EOMI, conjunctiva normal HENT: normocephalic, mucus membranes dry Neck: supple, no JVD Lungs: Increased respiratory effort, tachypneic, scattered rhonchi, diminished left lobe CV: Regular rhythm, tachycardic no murmur. Peripheral pulses 2+ Abdomen: soft, nondistended, no organomegaly, positive bowel sounds Skin: warm and dry. Decreasing edema bilateral lower extremities. Bilateral lower extremities Iraj wrap clean dry and intact. Neuro: A&Ox3, - Labs CBC & Chem 7: 03/11/20 05:53 03/11/20 05:53 Labs: Abnormal Lab Results - Last 24 Hours (Table) 03/10/20 03/10/20 03/10/20 Range/Units 09:09 11:19 17:15 RDW (11.5-15.5) % Plt Count (150-450) k/uL Lymphocytes # (1.0-4.8) k/uL Sodium 134 L (137-145) mmol/L Potassium 2.6 L* (3.5-5.1) mmol/L Carbon Dioxide 32 H (22-30) mmol/L BUN 39 H (9-20) mg/dL Glucose 132 H (74-99) mg/dL POC Glucose (mg/dL) 104 H 128 H (75-99) mg/dL Calcium 7.6 L (8.4-10.2) mg/dL Total Bilirubin 5.6 H (0.2-1.3) mg/dL AST 92 H (17-59) U/L ALT 138 H (4-49) U/L Alkaline Phosphatase 315 H (38-126) U/L Total Protein 4.6 L (6.3-8.2) g/dL Albumin 2.3 L (3.5-5.0) g/dL 03/10/20 03/10/20 03/11/20 Range/Units 19:45 20:18 05:53 RDW 19.7 H (11.5-15.5) % Plt Count 47 L (150-450) k/uL Lymphocytes # 0.2 L (1.0-4.8) k/uL Sodium 136 L (137-145) mmol/L Potassium (3.5-5.1) mmol/L Carbon Dioxide (22-30) mmol/L BUN 42 H (9-20) mg/dL Glucose 172 H (74-99) mg/dL POC Glucose (mg/dL) 149 H (75-99) mg/dL Calcium 7.4 L (8.4-10.2) mg/dL Total Bilirubin (0.2-1.3) mg/dL AST (17-59) U/L ALT (4-49) U/L Alkaline Phosphatase (38-126) U/L Total Protein (6.3-8.2) g/dL Albumin (3.5-5.0) g/dL 03/11/20 Range/Units 07:11 RDW (11.5-15.5) % Plt Count (150-450) k/uL Lymphocytes # (1.0-4.8) k/uL Sodium (137-145) mmol/L Potassium (3.5-5.1) mmol/L Carbon Dioxide (22-30) mmol/L BUN (9-20) mg/dL Glucose (74-99) mg/dL POC Glucose (mg/dL) 106 H (75-99) mg/dL Calcium (8.4-10.2) mg/dL Total Bilirubin (0.2-1.3) mg/dL AST (17-59) U/L ALT (4-49) U/L Alkaline Phosphatase (38-126) U/L Total Protein (6.3-8.2) g/dL Albumin (3.5-5.0) g/dL Microbiology - Last 24 Hours (Table) 03/10/20 21:21 Gram Stain - Preliminary Sputum Sputum Culture - Preliminary 03/05/20 13:55 Blood Culture - Preliminary Blood No Growth after 120 hours Assessment and Plan Assessment: (1) Acute hypoxemic respiratory failure Current Visit: Yes Status: Acute Code(s): J96.01 - ACUTE RESPIRATORY FAILURE WITH HYPOXIA SNOMED Code(s): 902582350 (2) Acute on chronic diastolic CHF (congestive heart failure), NYHA class 3 Current Visit: Yes Status: Acute Code(s): I50.33 - ACUTE ON CHRONIC DIASTOLIC (CONGESTIVE) HEART FAILURE SNOMED Code(s): 647185933 (3) possible postobstructive pneumonia (4) Hyperbilirubinemia Current Visit: Yes Status: Acute Code(s): E80.6 - OTHER DISORDERS OF BILIRUBIN METABOLISM SNOMED Code(s): 75872751 (5) Liver metastases Current Visit: Yes Status: Acute Priority: High Code(s): C78.7 - SECONDARY MALIG NEOPLASM OF LIVER AND INTRAHEPATIC BILE DUCT SNOMED Code(s): 91900079 (6) Small cell lung cancer Current Visit: Yes Status: Acute Priority: High Code(s): C34.90 - MALIGNANT NEOPLASM OF UNSP PART OF UNSP BRONCHUS OR LUNG SNOMED Code(s): 052412533 (7) Transaminitis Current Visit: Yes Status: Acute Priority: High Code(s): R74.01 - ELEV ATION OF LEVELS OF LIVER TRANSAMINASE LEVELS SNOMED Code(s): 453860348 (8) hypokalemia Plan:Continue on current medication regime ,monitoring and symptomatic treatment. Stat portable chest x-ray, portable echo. Transfer to ICU . Notified pulmonary. Aggressive pulmonary toileting. Maintain scheduled nebulized bronchodilators, steroids Continue diuresing. Labs pending. Prognosis guarded given multiple complex medical problems. The impression and plan of care has been dictated as directed. : I performed a history and examination of this patient, discussed the same with the dictator. I agree with the dictator's note ,documented as a scribe. Any additional findings or plans will be noted.
[2020-03-11] MEDS ORDERED: VANCOMYCIN 1,500 MG in SODIUM CHLORIDE 0.9% 250 ML IVPB ONE (14:00)
--- NOTE | 2020-03-11 15:17 | PN ---
PROGRESS NOTE Patient is seen for followup for acute kidney injury. He was transferred to the ICU this morning secondary to worsening shortness of breath and hypoxia. He is noticed to have whiteout of his left lung. The patient is currently being intubated. He is maintained on IV Lasix once a day for volume overload and lower extremity edema. Renal function has been stable with serum creatinine staying at 1.0 to 0.9 mg/dL. PHYSICAL EXAMINATION: On examination today, the patient is currently being intubated. He is seen in the ICU. Blood pressure was 110/60, heart rate 120 per minute. He is afebrile. Lower extremities shows edema bilaterally. Abdomen is soft, nontender. Heart and lungs are not examined. LABS: Labs from today show sodium 141, potassium 4.1, CO2 is 29, BUN 41, creatinine 1.0. Hemoglobin was 13.1 g/dL. ASSESSMENT: 1. Acute kidney injury. Renal function currently stable. Serum creatinine staying 0.9 to 1.0 mg/dL, maintained on once a day dosing of IV Lasix, which we will continue. 2. Volume overload, currently improved. 3. Hypokalemia secondary to diuresis, status post replacement. 4. Collapse of the left lung, currently being intubated. 5. Acute hypoxic respiratory failure associated with volume overload as well as left lung collapse. 6. Chronic obstructive pulmonary disease. 7. 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 PLAN: Continue with IV Lasix for now. Pulmonary management as per ICU. MMODL / IJN: [id number] /
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
[2020-03-11] MEDS: methylPREDNISolone SOD SUCCI 40 MG/ML 1 ML VIAL IV SCH ×2 (16:07→23:48)
[2020-03-11] MEDS: NOREPINEPHRINE 4 MG in SODIUM CHLORIDE 0.9% 250 ML IV SCH ×2 (16:20→23:48)
[2020-03-11 18:03] LABS: Glucose,Whole Blood 132 mg/dL (75-99)
--- NOTE | 2020-03-11 18:57 | OP ---
OPERATIVE REPORT OPERATIVE REPORT: Bronchoscopy, bronchoalveolar lavage, and extraction of mucus plugs from the left mainstem bronchus, left upper lobe bronchus, and left lower lobe bronchus. PREOPERATIVE DIAGNOSIS: Small-cell lung cancer with postobstructive pneumonitis and complete collapse of the left lung. POSTOPERATIVE DIAGNOSIS: Small-cell lung cancer involving the left mainstem bronchus, left upper lobe bronchus, left lower lobe bronchus, and surrounded by mucous plugging around the endobronchial tumors noted above. ANESTHESIA USED: The patient was given Nimbex 10 mg IV push and he was already on propofol drip. PROCEDURE DESCRIPTION: Patient was placed in a supine position. He was already on mechanical ventilation. Endotracheal tube was connected to an adapter, which was also connected to mechanical ventilation. After adequate anesthesia was given, the bronchoscope was advanced through the endotracheal tube adapter. We were monitoring his oxygen saturation continuously. Blood pressure was continuously monitored via arterial line and oxygen saturation was continuously monitored. The bronchoscope was advanced all the way to the area of the corbin. Corbin was noted to be relatively unremarkable. Right side was examined. It was all unremarkable. However, as I went into the distal end of the left mainstem bronchus, there was evidence of an endobronchial tumor almost subtotally occluding the left lower lobe bronchus and subtotally occluding the left upper lobe bronchus and lingula. Mucus plugs were noted around the tumor, and these were suctioned, lavaged, until all the mucus plugs were removed. The patient tolerated the procedure well. Fluid was obtained, sent for cultures, and follow-up chest x-ray showed significant improvement in the aeration of the left lung. Again, no evidence of any immediate complication. MMODL / IJN: [id number] /
--- NOTE | 2020-03-11 19:23 | P.PN ---
Subjective Progress Note Date: 03/11/20 Principal diagnosis: Progressive Disease Patient is now in care of ICU, intubated, status post Bronch. Spoke to patients daughter Brenna (she will be advocate to make decisions if Paulo is unable), she understands the extent of the situation and overall poor prognosis. Objective - Vital Signs Vital signs: Vital Signs Temp 97.8 F 03/11/20 10:50 Pulse 95 03/11/20 17:30 Resp 28 H 03/11/20 17:30 BP 95/65 03/11/20 17:30 Pulse Ox 96 03/11/20 17:30 Intake & Output 03/10/20 03/11/20 03/11/20 18:59 06:59 18:59 Intake Total 150 1571.643 Output Total 1625 1250 Balance -1475 321.643 Weight 73 kg Intake: IV 1100 Saline 1100 Intake, IV Titration 471.643 Amount Norepinephrine 4 mg In 22.947 Sodium Chloride 0.9% 250 ml @ 0.05 MCG/KG/MIN 13. 907 mls/hr IV .[id number] [facility] Rx#:[id number] Piperacillin-Tazobactam 3 100 .375 gm In Sodium Chloride 0.9% 100 ml @ 25 mls/hr IVPB Q8HR [facility] Rx# :[id number] Vancomycin 1,250 mg In 250 Sodium Chloride 0.9% 250 ml @ 125 mls/hr IVPB Q12H [facility] Rx#:[id number] propofoL 1,000 mg In 98.696 Empty Bag 1 bag @ Titrate IV .Q0M [facility] Rx#: [id number] Oral 150 Output: Urine 1625 1250 Uretheral (Melgar) 350 Other: Voiding Method Urinal Urinal Indwelling Catheter # Bowel Movements 1 ABP, PAP, CO, CI - Last Documented Arterial Blood Pressure 102/51 - Exam [facility] vent - Labs CBC & Chem 7: 03/11/20 05:53 03/11/20 05:53 Labs: Abnormal Lab Results - Last 24 Hours (Table) 03/10/20 03/10/20 03/11/20 Range/Units 19:45 20:18 05:53 RDW (11.5-15.5) % Plt Count (150-450) k/uL Lymphocytes # (1.0-4.8) k/uL ABG pCO2 (35-45) mmHg ABG pO2 (83-108) mmHg ABG HCO3 (21-25) mmol/L ABG Total CO2 (19-24) mmol/L ABG O2 Saturation (94-97) % Sodium 136 L (137-145) mmol/L BUN 42 H 41.0 H (9-20) mg/dL BUN/Creatinine Ratio 41.00 H (12.00-20.00) Ratio Glucose 172 H 117 H (74-99) mg/dL POC Glucose (mg/dL) 149 H (75-99) mg/dL Calcium 7.4 L 7.9 L (8.4-10.2) mg/dL Total Bilirubin 5.6 H (0.3-1.2) mg/dL Conjugated Bilirubin 4.20 H (0.20-0.40) mg/dL AST 88 H (14-35) U/L ALT 138 H (10-49) U/L Alkaline Phosphatase 344 H (41-126) U/L Total Protein 4.4 L (6.2-8.2) g/dL Albumin 2.90 L (3.80-4.90) g/dL Globulin 1.5 L (1.6-3.3) g/dL 03/11/20 03/11/20 03/11/20 Range/Units 05:53 07:11 10:38 RDW 19.7 H (11.5-15.5) % Plt Count 47 L (150-450) k/uL Lymphocytes # 0.2 L (1.0-4.8) k/uL ABG pCO2 (35-45) mmHg ABG pO2 (83-108) mmHg ABG HCO3 (21-25) mmol/L ABG Total CO2 (19-24) mmol/L ABG O2 Saturation (94-97) % Sodium (137-145) mmol/L BUN (9-20) mg/dL BUN/Creatinine Ratio (12.00-20.00) Ratio Glucose (74-99) mg/dL POC Glucose (mg/dL) 106 H 130 H (75-99) mg/dL Calcium (8.4-10.2) mg/dL Total Bilirubin (0.3-1.2) mg/dL Conjugated Bilirubin (0.20-0.40) mg/dL AST (14-35) U/L ALT (10-49) U/L Alkaline Phosphatase (41-126) U/L Total Protein (6.2-8.2) g/dL Albumin (3.80-4.90) g/dL Globulin (1.6-3.3) g/dL 03/11/20 03/11/20 Range/Units 12:07 18:01 RDW (11.5-15.5) % Plt Count (150-450) k/uL Lymphocytes # (1.0-4.8) k/uL ABG pCO2 50 H (35-45) mmHg ABG pO2 172 H (83-108) mmHg ABG HCO3 29 H (21-25) mmol/L ABG Total CO2 31 H (19-24) mmol/L ABG O2 Saturation 99.4 H (94-97) % Sodium (137-145) mmol/L BUN (9-20) mg/dL BUN/Creatinine Ratio (12.00-20.00) Ratio Glucose (74-99) mg/dL POC Glucose (mg/dL) 132 H (75-99) mg/dL Calcium (8.4-10.2) mg/dL Total Bilirubin (0.3-1.2) mg/dL Conjugated Bilirubin (0.20-0.40) mg/dL AST (14-35) U/L ALT (10-49) U/L Alkaline Phosphatase (41-126) U/L Total Protein (6.2-8.2) g/dL Albumin (3.80-4.90) g/dL Globulin (1.6-3.3) g/dL Microbiology - Last 24 Hours (Table) 03/05/20 13:55 Blood Culture - Final Blood No Growth after 144 hours 03/10/20 21:21 Gram Stain - Preliminary Sputum Sputum Culture - Preliminary Assessment and Plan Plan: Chest x-ray: report reviewed CT scan - chest: report reviewed Assessment and Plan Vent Dependent Hypoxic Respiratory Failure: - Currently in the care of ICU on Ventilator - Prognosis guarded Extensive Stage Small cell lung cancer - Status POst cycle one of emergent inpatient chemotherapy - Monitor daily CBC, CMP Diffuse Liver metastases: Transaminitis - Monitor daily - MOnitor COags and bleeding, especially as platelets start to trend down. Thrombocytopenia: - Check Coags and monitor Daily CBC Severe Bilateral Lower Extremity Edema: - Likely secondary to progressive liver mets and rapidly progressive disease Plan: - Discussed critical situation with daughter, she understands overall situation and given his critical state would recommend allowing exception for her to see him at bedside. She has received her COVID vaccination. I have spoken to nursing who have stated they will call her. - Above situation currently under the care of ICU, will continue to update family and provide support. Overall prognosis poor. Doctor attests: I performed a history and physical examination of this patient, developed impression and plan of care. Discussed with dictator. I agree with dictators note, documented as a scribe.
--- NOTE | 2020-03-11 19:35 | OP ---
OPERATIVE REPORT OPERATIVE REPORT: Placement of right IJ triple-lumen catheter. PREOPERATIVE DIAGNOSIS: Acute hypoxic respiratory failure secondary to small-cell lung cancer and mucus plugs involving the left lung. POSTOPERATIVE DIAGNOSIS: Acute hypoxic respiratory failure secondary to small-cell lung cancer and mucus plugs involving the left lung. ANESTHESIA USED: 2 mL of 1% lidocaine. PROCEDURE DESCRIPTION: The patient was placed in a Trendelenburg position. The right cervical area was prepared in a sterile fashion and drapes were applied. The area behind the posterior belly of the sternocleidomastoid was locally anesthetized. Then using the posterior approach, the right internal jugular vein was easily cannulated, and a guidewire was placed. The area around the guidewire was dilated. Then a triple-lumen catheter was inserted over the guidewire, and the guidewire was removed. Good blood flow was noted in the 3 different ports of the triple-lumen catheter. Line was secured using 2.0 silk sutures. Chest x-ray showed adequate placement of the central line, and no complications. MMODL / IJN: [id number] /
--- NOTE | 2020-03-11 19:44 | OP ---
OPERATIVE REPORT OPERATIVE REPORT: Placement of a right radial arterial line. PREOPERATIVE DIAGNOSIS: Acute hypoxic respiratory failure. POSTOPERATIVE DIAGNOSIS: Acute hypoxic respiratory failure. ANESTHESIA USED: None deployed. PROCEDURE DESCRIPTION: The patient was placed in the supine position. The right wrist was prepared in a sterile fashion. Drapes were applied. The right radial artery was palpated, cannulated, and a guidewire was placed. A Cook's catheter was inserted over the guidewire, and the guidewire was removed. Good blood flow, good waveform noted. No evidence of any immediate complications. Line was secured using 3.0 silk sutures. MMODL / IJN: [id number] /
[2020-03-11] MEDS: FAMOTIDINE 20 MG TAB PO SCH (20:37)
[2020-03-11 20:49] LABS: Glucose,Whole Blood 142 mg/dL (75-99)
[2020-03-12] MEDS ORDERED: VANCOMYCIN 1,250 MG in SODIUM CHLORIDE 0.9% 250 ML IVPB SCH (02:00)
[2020-03-12 04:25] LABS: Anisocytosis Moderate; Basophils % (A) 0 %; Eosinophils % (A) 0 %; HCT 30.7 % (39.0-53.0); HGB 10.6 gm/dL (13.0-17.5); Lymphocytes # (A) 0.2 k/uL (1.0-4.8); Lymphocytes % (A) 9 %; MCH 30.8 pg (25.0-35.0); MCHC 34.4 g/dL (31.0-37.0); MCV 89.6 fL (80.0-100.0); Mean Platelet Volume 10.1; Monocytes % (A) 1 %; Neutrophils # (A) 2.2 k/uL (1.3-7.7); Neutrophils % (A) 90 %; RBC 3.43 m/uL (4.30-5.90); WBC 2.4 k/uL (3.8-10.6)
[2020-03-12 04:29] LABS: Platelet Count 29 k/uL (150-450)
[2020-03-12 04:41] LABS: ALT 100 U/L (4-49); AST 63 U/L (17-59); African American GFR (CKD) >90 (>60 ml/min/1.73 sqM); Albumin 1.9 g/dL (3.5-5.0); Alkaline Phosphatase 223 U/L (38-126); Anion Gap -1 mmol/L; Blood Urea Nitrogen 38 mg/dL (9-20); Calcium 7.3 mg/dL (8.4-10.2); Carbon Dioxide 29 mmol/L (22-30); Chloride 111 mmol/L (98-107); Glucose 136 mg/dL (74-99); Non-African American GFR(CKD) 90 (>60 ml/min/1.73 sqM); Potassium 3.8 mmol/L (3.5-5.1); Sodium 139 mmol/L (137-145); Total Bilirubin 4.5 mg/dL (0.2-1.3)
[2020-03-12] MEDS ORDERED: POTASSIUM CHLORIDE 20 MEQ in WATER FOR INJECTION 1 100ML.BAG IVPB STA (04:51)
[2020-03-12 06:36] LABS: Glucose,Whole Blood 127 mg/dL (75-99)
[2020-03-12] MEDS: INSULIN ASPART (NovoLOG) 100 UNIT/ML VIAL SQ SCH (06:49)
[2020-03-12] MEDS: MULTIVITAMINS, THERA 1 EACH TAB PO SCH (08:00)
[2020-03-12] MEDS: SODIUM CHLORIDE 0.9% 1,000 ML IV SCH ×3 (08:00→23:06)
[2020-03-12] MEDS ORDERED: INSULIN ASPART (NovoLOG) 100 UNIT/ML VIAL SQ SCH (08:00)
[2020-03-12] MEDS: POTASSIUM CHLORIDE ER 20 MEQ TAB.ER PO SCH (08:00)
--- NOTE | 2020-03-12 08:01 | XR ---
EXAMINATION TYPE: XR chest 1V portable DATE OF EXAM: 03/12/2020 COMPARISON: Chest x-ray 03/11/2020 HISTORY: Intubated TECHNIQUE: Single frontal view of the chest is obtained. FINDINGS: Endotracheal tube is overlying the tracheal air column, there is a right jugular central v enous catheter with distal tip in stable position likely in the right atrium. Volume loss in left hem ithorax is progressed, there is less aeration of the lung on the left. No evident pneumothorax. Apica l pleural thickening is present IMPRESSION: Progression of atelectasis in possible associated effusion.
[2020-03-12] MEDS: methylPREDNISolone SOD SUCCI 40 MG/ML 1 ML VIAL IV SCH (08:05)
[2020-03-12] MEDS: FUROSEMIDE 10 MG/ML 4 ML VIAL IV SCH (08:08)
[2020-03-12] MEDS: IPRATROPIUM-ALBUTEROL 3 ML NEB INHALATION SCH (08:10)
[2020-03-12] MEDS: PIPERACILLIN-TAZOBACTAM 3.375 GM in SODIUM CHLORIDE 0.9% 100 ML IVPB SCH (08:12)
[2020-03-12 08:17] LABS: ABG Base Excess 3.5 mmol/L; ABG HCO3 27 mmol/L (21-25); ABG Oxygen Saturation 95.3 % (94-97); ABG PCO2 35 mmHg (35-45); ABG PH 7.49 (7.35-7.45); ABG PO2 71 mmHg (83-108); ABG TCO2 28 mmol/L (19-24)
[2020-03-12] MEDS ORDERED: FAMOTIDINE 20 MG/2 ML VIAL IV SCH (09:00)
[2020-03-12] MEDS ORDERED: CHLORHEXIDINE GLUCONATE 15 ML CUP MUCOUS MEM SCH (09:00)
[2020-03-12 11:06] VITALS: BMI 25.2
[2020-03-12] MEDS ORDERED: MORPHINE SULFATE 2 MG/ML SYRINGE IV PRN (11:23)
[2020-03-12] MEDS ORDERED: ATROPINE OPHTH SOLN 1% 5ML BTL SUBLINGUAL PRN (11:23)
[2020-03-12] MEDS ORDERED: MORPHINE SULFATE 2 MG/ML SYRINGE IVP ONE (11:30)
[2020-03-12] MEDS: MORPHINE SULFATE (100 MG/2 ML) 100 MG in SODIUM CHLORIDE 0.9% 100 ML IV SCH (11:50)
--- NOTE | 2020-03-12 12:59 | P.PN ---
Subjective Progress Note Date: 03/12/20 Paulo Stuart is a 69 yo M with hx of recently diagnosed lung cancer, COPD, diastolic CHF, HTN, HLD who presented to the ED with increasing shortness of breath. He was scheduled for his first cycle of chemotherapy yesterday but was noted to be hypoxic on room air and was therefore recommended to come to the ED. He denies any chest pain, fever or chills. He does endorse malaise and shortness of breath. On presentation he was tachycardic and hypoxic on room air, WBC 14k, Cr 1.4, BNP 300. CTA chest showing LLL mass with consolidation and obstruction. 03/07/2020 and received first chemotherapy yesterday. Tolerated well. Denies nausea or vomiting. No diarrhea. Scheduled for second dose of chemotherapy today. Diuresing well on Lasix IV push with 24-hour I&O reflecting a negative fluid balance.. Denies chest pain, palpitations or increased shortness of breath. Maintaining O2 sats in the 90s on 5 L nasal cannula. Mild tachycardia. Afebrile 03/10/2020 completed third bag of chemotherapy yesterday. Tolerated well. Denies nausea vomiting or diarrhea. Maintained on Zosyn for now. Occasional cough. Coronavirus not detected. Continues requirinf 5 L nasal cannula to maintain O2 sats in the 90s. Diuresing well on Lasix IV push, creatinine 1.02. Potassium 2.6 , magnesium 2.3.Denies chest pain, palpitations. 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 Developed increased shortness of breath, tachycardia. Heart rate currently 122, maintaining O2 sats of 83% on 15 L high flow nasal cannula- nonrebreather at bedside. Recently received IV push Lasix. Labs pending. 03/12/2020 chest x-ray yesterday showed left lung collapse, hypoxic respiratory failure and patient is transferred to ICU. BiPAP attempted with no significant improvement. Patient changed his CODE STATUS to full code and he was intubated. Patient was also bronchoscoped, reporting endobronchial tumor involving the distal left mainstem, left upper and lower lobe bronchus with subtotal occlusion as well as mucous plugs. Significant improvement reported on follow-up chest x- ray. Remains vent dependent with FiO2 50%/+5 of PEEP. Maintained on Levophed, diprovan , Zosyn and vancomycin for obstructive pneumonitis and mucous plugs. Chest x-ray this morning reporting progression of atelectasis, possible associated effusion. LFTs elevated, trending down. Platelets continue trending down, currently 29, hemoglobin down to 10.6. Albumin 1.9. ABGs noted Family notified of poor prognosis and en route to hospital. Objective - Vital Signs Vital signs: Vital Signs Temp 98.6 F 03/12/20 04:00 Pulse 92 03/12/20 07:00 Resp 26 H 03/12/20 07:00 BP 112/76 03/12/20 01:00 Pulse Ox 93 L 03/12/20 07:00 Intake & Output 03/11/20 03/12/20 03/12/20 18:59 06:59 18:59 Intake Total 7224.878 6635.002 Output Total 1375 795 Balance 196.643 897.002 Weight 75.2 kg Intake: IV 1100 1200 Saline 1100 1200 Intake, IV Titration 471.643 492.002 Amount Norepinephrine 4 mg In 22.947 256.295 Sodium Chloride 0.9% 250 ml @ 0.05 MCG/KG/MIN 13. 907 mls/hr IV .[id number] [facility] Rx#:[id number] Piperacillin-Tazobactam 3 100 .375 gm In Sodium Chloride 0.9% 100 ml @ 25 mls/hr IVPB Q8HR [facility] Rx# :[id number] Vancomycin 1,250 mg In 250 Sodium Chloride 0.9% 250 ml @ 125 mls/hr IVPB Q12H [facility] Rx#:[id number] propofoL 1,000 mg In 98.696 235.707 Empty Bag 1 bag @ Titrate IV .Q0M [facility] Rx#: [id number] Output: Urine 1375 795 Uretheral (Melgar) 350 Other: Voiding Method Indwelling Catheter Indwelling Catheter ABP, PAP, CO, CI - Last Documented Arterial Blood Pressure 103/51 - Exam General: Sitting up in bed, Sedated and intubated. Eyes: PERRL, EOMI, conjunctiva normal HENT: normocephalic, mucus membranes dry Neck: supple, no JVD Lungs: Good air entry on right, Diminished left lobe. CV: Regular rhythm, tachycardic ,no murmur. Peripheral pulses 2+ Abdomen: soft, nondistended, no organomegaly, positive bowel sounds Skin: warm and dry. decreasing edema bilateral lower extremities. Neuro: Unable to assess at this time as patient intubated and sedated. - Labs CBC & Chem 7: 03/12/20 04:05 03/12/20 04:05 Labs: Abnormal Lab Results - Last 24 Hours (Table) 03/11/20 03/11/20 03/11/20 Range/Units 05:53 10:38 12:07 WBC (3.8-10.6) k/uL RBC (4.30-5.90) m/uL Hgb (13.0-17.5) gm/dL Hct (39.0-53.0) % RDW (11.5-15.5) % Plt Count (150-450) k/uL Lymphocytes # (1.0-4.8) k/uL ABG pCO2 50 H (35-45) mmHg ABG pO2 172 H (83-108) mmHg ABG HCO3 29 H (21-25) mmol/L ABG Total CO2 31 H (19-24) mmol/L ABG O2 Saturation 99.4 H (94-97) % Chloride (98-107) mmol/L BUN 41.0 H (9.0-27.0) mg/dL BUN/Creatinine Ratio 41.00 H (12.00-20.00) Ratio Glucose 117 H (70-110) mg/dL POC Glucose (mg/dL) 130 H (75-99) mg/dL Calcium 7.9 L (8.7-10.3) mg/dL Total Bilirubin 5.6 H (0.3-1.2) mg/dL Conjugated Bilirubin 4.20 H (0.20-0.40) mg/dL AST 88 H (14-35) U/L ALT 138 H (10-49) U/L Alkaline Phosphatase 344 H (41-126) U/L Total Protein 4.4 L (6.2-8.2) g/dL Albumin 2.90 L (3.80-4.90) g/dL Globulin 1.5 L (1.6-3.3) g/dL 03/11/20 03/11/20 03/12/20 Range/Units 18:01 20:36 04:05 WBC 2.4 L (3.8-10.6) k/uL RBC 3.43 L (4.30-5.90) m/uL Hgb 10.6 L (13.0-17.5) gm/dL Hct 30.7 L (39.0-53.0) % RDW 20.0 H (11.5-15.5) % Plt Count 29 L (150-450) k/uL Lymphocytes # 0.2 L (1.0-4.8) k/uL ABG pCO2 (35-45) mmHg ABG pO2 (83-108) mmHg ABG HCO3 (21-25) mmol/L ABG Total CO2 (19-24) mmol/L ABG O2 Saturation (94-97) % Chloride (98-107) mmol/L BUN (9.0-27.0) mg/dL BUN/Creatinine Ratio (12.00-20.00) Ratio Glucose (70-110) mg/dL POC Glucose (mg/dL) 132 H 142 H (75-99) mg/dL Calcium (8.7-10.3) mg/dL Total Bilirubin (0.3-1.2) mg/dL Conjugated Bilirubin (0.20-0.40) mg/dL AST (14-35) U/L ALT (10-49) U/L Alkaline Phosphatase (41-126) U/L Total Protein (6.2-8.2) g/dL Albumin (3.80-4.90) g/dL Globulin (1.6-3.3) g/dL 03/12/20 03/12/20 Range/Units 04:05 06:22 WBC (3.8-10.6) k/uL RBC (4.30-5.90) m/uL Hgb (13.0-17.5) gm/dL Hct (39.0-53.0) % RDW (11.5-15.5) % Plt Count (150-450) k/uL Lymphocytes # (1.0-4.8) k/uL ABG pCO2 (35-45) mmHg ABG pO2 (83-108) mmHg ABG HCO3 (21-25) mmol/L ABG Total CO2 (19-24) mmol/L ABG O2 Saturation (94-97) % Chloride 111 H (98-107) mmol/L BUN 38 H (9.0-27.0) mg/dL BUN/Creatinine Ratio (12.00-20.00) Ratio Glucose 136 H (70-110) mg/dL POC Glucose (mg/dL) 127 H (75-99) mg/dL Calcium 7.3 L (8.7-10.3) mg/dL Total Bilirubin 4.5 H (0.3-1.2) mg/dL Conjugated Bilirubin (0.20-0.40) mg/dL AST 63 H (14-35) U/L ALT 100 H (10-49) U/L Alkaline Phosphatase 223 H (41-126) U/L Total Protein 4.0 L (6.2-8.2) g/dL Albumin 1.9 L (3.80-4.90) g/dL Globulin (1.6-3.3) g/dL Microbiology - Last 24 Hours (Table) 03/11/20 12:32 Fungal Culture - Preliminary Bronchoalviolar Lavage - Left 03/11/20 12:32 Bronchial Washings Culture - Preliminary Bronchoalviolar Lavage - Left 03/11/20 12:32 Acid Fast Bacilli Culture - Preliminary Bronchoalviolar Lavage - Left 03/05/20 13:55 Blood Culture - Final Blood No Growth after 144 hours 03/10/20 21:21 Gram Stain - Preliminary Sputum Sputum Culture - Preliminary Assessment and Plan Assessment: (1) Acute hypoxemic respiratory failure related to left lung collapse, post- obstructive pneumonitis ,status post bronchoscopy reporting endobronchial tumor involving left mainstem, mucous plugging Current Visit: Yes Status: Acute Code(s): J96.01 - ACUTE RESPIRATORY FAILURE WITH HYPOXIA SNOMED Code(s): 673479726 (2) Acute on chronic diastolic CHF (congestive heart failure), NYHA class 3 Current Visit: Yes Status: Acute Code(s): I50.33 - ACUTE ON CHRONIC DIASTOLIC (CONGESTIVE) HEART FAILURE SNOMED Code(s): 512531845 (3) postobstructive pneumonia secondary to endobronchial tumor (4) Hyperbilirubinemia Current Visit: Yes Status: Acute Code(s): E80.6 - OTHER DISORDERS OF BILIRUBIN METABOLISM SNOMED Code(s): 95949770 (5) Liver metastases with elevated LFTs Current Visit: Yes Status: Acute Priority: High Code(s): C78.7 - SECONDARY MALIG NEOPLASM OF LIVER AND INTRAHEPATIC BILE DUCT SNOMED Code(s): 54554232 (6) Small cell lung cancer Current Visit: Yes Status: Acute Priority: High Code(s): C34.90 - MALIGNANT NEOPLASM OF UNSP PART OF UNSP BRONCHUS OR LUNG SNOMED Code(s): 746278507 (7) Transaminitis Current Visit: Yes Status: Acute Priority: High Code(s): R74.01 - ELEVATION OF LEVELS OF LIVER TRANSAMINASE LEVELS SNOMED Code(s): 395097464 (8) pancytopenia, chemotherapy induced (8) hypokalemia (9) COPD (10) moderate pulmonary hypertension (11) cardiogenic shock, pressor dependent secondary to #1 Plan:Continue on current medication regime ,monitoring and symptomatic treatment. Prognosis poor, family arrived ,discussed plan of care, options with heel compressor. Family has chosen to proceed with terminal wean/comfort care. The impression and plan of care has been dictated as directed. : I performed a history and examination of this patient, discussed the same with the dictator. I agree with the dictator's note ,documented as a scribe. Any additional findings or plans will be noted.
--- NOTE | 2020-03-12 13:10 | PN ---
PROGRESS NOTE The patient is seen for followup for volume overload and acute kidney injury, which seems to have resolved at this point. The patient was transferred to the ICU secondary to worsening respiratory status and collapse of his left lung. He is currently on the vent. Family is present at bedside. They are considering comfort care options. PHYSICAL EXAMINATION: On examination today, blood pressure was 90/50, heart rate 102 per minute. He is afebrile. Examination shows edema 1+ lower extremities. Abdomen is soft, nontender. Patient remains on the vent and sedated. LABS: Labs show hemoglobin 10.6, sodium 139, potassium 3.8, serum creatinine 0.83. ASSESSMENT: 1. Acute kidney injury mostly cardiorenal, currently improved. 2. Hypervolemia, maintained on IV Lasix. Volume status improved, fairly stable. Patient continues to have some edema. He is maintained on IV Lasix daily. 3. Acute hypoxic respiratory failure with collapse of left lung, currently on the vent, status post bronchoscopy with recurrence of the atelectasis and collapse. 4. Underlying lung cancer with metastasis. PLAN: Continue with IV Lasix for now. Overall prognosis is guarded. The patient's family is considering comfort care options. MMODL / IJN: [id number] / ROLAN
--- NOTE | 2020-03-12 14:36 | P.PN ---
Subjective Progress Note Date: 03/12/20 Principal diagnosis: Progressive Disease Daughter and niece at bedside, Patient has been extubated for comfort measures as overall prognosis is poor. We have consulted hospic care. I feel this is appropriate. Objective - Vital Signs Vital signs: Vital Signs Temp 97.8 F 03/12/20 08:30 Pulse 93 03/12/20 14:00 Resp 12 03/12/20 14:00 BP 99/72 03/12/20 08:30 Pulse Ox 94 L 03/12/20 14:00 Intake & Output 03/11/20 03/12/20 03/12/20 18:59 06:59 18:59 Intake Total 8026.980 7462.002 435.976 Output Total 9392 354 3247 Balance 196.643 897.002 -929.024 Weight 75.2 kg 75.2 kg Intake: IV 1100 1200 389 Pressure Bag 9 Saline 1100 1200 Sodium Chloride 0.9% 1, 380 000 ml @ 20 mls/hr IV . Q24H [facility] Rx#:[id number] Intake, IV Titration 471.643 492.002 46.976 Amount Norepinephrine 4 mg In 22.947 256.295 Sodium Chloride 0.9% 250 ml @ 0.05 MCG/KG/MIN 13. 907 mls/hr IV .[id number] [facility] Rx#:[id number] Piperacillin-Tazobactam 3 100 .375 gm In Sodium Chloride 0.9% 100 ml @ 25 mls/hr IVPB Q8HR [facility] Rx# :[id number] Vancomycin 1,250 mg In 250 Sodium Chloride 0.9% 250 ml @ 125 mls/hr IVPB Q12H [facility] Rx#:[id number] propofoL 1,000 mg In 98.696 235.707 46.976 Empty Bag 1 bag @ Titrate IV .Q0M [facility] Rx#: [id number] Output: Urine 2750 782 7896 Uretheral (Melgar) 350 Other: Voiding Method Indwelling Catheter Indwelling Catheter ABP, PAP, CO, CI - Last Documented Arterial Blood Pressure 103/50 - Exam COmfotable ASleeping Jaundice [place] and swelling lower extremitiws Dry mucus membranes No increased effort HR 80-90s - Labs CBC & Chem 7: 03/12/20 04:05 03/12/20 04:05 Labs: Abnormal Lab Results - Last 24 Hours (Table) 03/11/20 03/11/20 03/12/20 Range/Units 18:01 20:36 04:05 WBC 2.4 L (3.8-10.6) k/uL RBC 3.43 L (4.30-5.90) m/uL Hgb 10.6 L (13.0-17.5) gm/dL Hct 30.7 L (39.0-53.0) % RDW 20.0 H (11.5-15.5) % Plt Count 29 L (150-450) k/uL Lymphocytes # 0.2 L (1.0-4.8) k/uL ABG pH (7.35-7.45) ABG pO2 (83-108) mmHg ABG HCO3 (21-25) mmol/L ABG Total CO2 (19-24) mmol/L Chloride (98-107) mmol/L BUN (9-20) mg/dL Glucose (74-99) mg/dL POC Glucose (mg/dL) 132 H 142 H (75-99) mg/dL Calcium (8.4-10.2) mg/dL Total Bilirubin (0.2-1.3) mg/dL AST (17-59) U/L ALT (4-49) U/L Alkaline Phosphatase (38-126) U/L Total Protein (6.3-8.2) g/dL Albumin (3.5-5.0) g/dL 03/12/20 03/12/20 03/12/20 Range/Units 04:05 06:22 08:09 WBC (3.8-10.6) k/uL RBC (4.30-5.90) m/uL Hgb (13.0-17.5) gm/dL Hct (39.0-53.0) % RDW (11.5-15.5) % Plt Count (150-450) k/uL Lymphocytes # (1.0-4.8) k/uL ABG pH 7.49 H (7.35-7.45) ABG pO2 71 L (83-108) mmHg ABG HCO3 27 H (21-25) mmol/L ABG Total CO2 28 H (19-24) mmol/L Chloride 111 H (98-107) mmol/L BUN 38 H (9-20) mg/dL Glucose 136 H (74-99) mg/dL POC Glucose (mg/dL) 127 H (75-99) mg/dL Calcium 7.3 L (8.4-10.2) mg/dL Total Bilirubin 4.5 H (0.2-1.3) mg/dL AST 63 H (17-59) U/L ALT 100 H (4-49) U/L Alkaline Phosphatase 223 H (38-126) U/L Total Protein 4.0 L (6.3-8.2) g/dL Albumin 1.9 L (3.5-5.0) g/dL Microbiology - Last 24 Hours (Table) 03/11/20 12:32 Gram Stain - Preliminary Bronchoalviolar Lavage - Left Bronchial Washings Culture - Preliminary 03/11/20 12:32 Fungal Culture - Preliminary Bronchoalviolar Lavage - Left 03/11/20 12:32 Acid Fast Bacilli Culture - Preliminary Bronchoalviolar Lavage - Left 03/05/20 13:55 Blood Culture - Final Blood No Growth after 144 hours Assessment and Plan Plan: Chest x-ray: report reviewed CT scan - chest: report reviewed Assessment and Plan Vent Dependent Hypoxic Respiratory Failure: - Currently in the care of ICU on Ventilator - Prognosis guarded Extensive Stage Small cell lung cancer - Status POst cycle one of emergent inpatient chemotherapy - Monitor daily CBC, CMP Diffuse Liver metastases: Transaminitis - Monitor daily - MOnitor COags and bleeding, especially as platelets start to trend down. Thrombocytopenia: - Check Coags and monitor Daily CBC Severe Bilateral Lower Extremity Edema: - Likely secondary to progressive liver mets and rapidly progressive disease Plan: - Extubated for terminal comfort - Agree with plan and will consult Hospice to [facility] FOR OPTION OF HOME HOSPICE CARE. aLSO DISCUSSED WITH NURSING. fAMILY SUPPORT GIVEN AND all questions answered to best of my capability.
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
--- NOTE | 2020-03-12 15:23 | P.GSCN ---
History of Present Illness Consult date: 03/12/20 History of present illness: CHIEF COMPLAINT: Shortness of breath HISTORY OF PRESENT ILLNESS: This is a 69-year-old male who was recently diagnosed with small cell lung cancer with metastatic disease to the liver and an esophageal mass that is highly suspicious of squamous cell carcinoma involving the distal esophagus. Patient admitted to the hospital on 03/05/2020 for acute hypoxic respiratory failure and collapse of the left lung secondary to end of bronchial tumor involving the left mainstem bronchus with mucous plugging. Patient underwent bronchoscopy on 03/11/2020. Patient is intubated. His overall condition is poor and guarded. Surgical consult was placed for possible OG tube placement. However, patient's family is going to proceed with comfort care and hospice. PAST MEDICAL HISTORY: See list. PAST SURGICAL HISTORY: See list. MEDICATIONS: See list. ALLERGIES: See list. SOCIAL HISTORY: No illicit drug use. REVIEW OF SYSTEMS: Unable to obtain. Patient is intubated and sedated PHYSICAL EXAM: VITAL SIGNS: Reviewed GENERAL: Well-developed in no acute distress. HEENT: No sclera icterus. Extraocular movements grossly intact. Moist buccal mucosa. Head is atraumatic, normocephalic. No nasal drainage. ABDOMEN: Soft. nontender NEUROLOGIC: Intubated and sedated LABORATORY DATA: WBC 2.4 hemoglobin 10.6 platelets 29 LFTs elevated IMAGING: ASSESSMENT: 1. Acute hypoxic respiratory failure due to left lung collapse secondary to endobronchial tumor 2. Small cell lung cancer with liver metastases 3. Esophageal mass PLAN: -Patient's overall prognosis is poor and guarded. Family has decided to proceed with comfort care and hospice -They have declined OG tube placement Physician Data Management Analyst note has been reviewed by physician. Signing provider agrees with the documented findings, assessment, and plan of care. Past Medical History Past Medical History: Cancer, COPD, GERD/Reflux, Hyperlipidemia, Hypertension, Osteoarthritis (OA) Additional Past Medical History / Comment(s): left inguinal hernia, lung cancer--small cell History of Any Multi-Drug Resistant Organisms: None Reported Past Surgical History: Hernia Repair Additional Past Surgical History / Comment(s): hemorrhoidectomy,throat surg, left inguinal hernia repair X4 , right shoulder surgery, bronchoscopy Past Anesthesia/Blood Transfusion Reactions: No Reported Reaction Additional Past Anesthesia/Blood Transfusion Reaction / Comm: no hx blood transfusion Past Psychological History: No Psychological Hx Reported Additional Psychological History / Comment(s): Pt resides alone. He is independent. He drives. He served in the [employer]. Smoking Status: Former smoker, Vaper Past Alcohol Use History: Rare Additional Past Alcohol Use History / Comment(s): started smoking at age 20 quit july 2018 smoked 1/2ppd-3/4 ppd. vapes daily Past Drug Use History: None Reported - Past Family History Mother Family Medical History: No Reported History Additional Family Medical History / Comment(s): Mother had a cardiac valve replaced. Father Family Medical History: Cancer, Respiratory Disorder Additional Family Medical History / Comment(s): Lymphoma, mesothelioma lung Sister(s) Family Medical History: Cancer Additional Family Medical History / Comment(s): breast cancer Brother(s) Family Medical History: Cancer Additional Family Medical History / Comment(s): lung cancer Medications and Allergies Home Medications Medication Instructions Recorded Confirmed Type Budesonide/Formoterol Fumarate 2 puff INHALATION RT-BID 11/23/17 03/05/20 History [Symbicort 160-4.5 Mcg Inhaler] Lovastatin [Mevacor] 20 mg PO HS 11/23/17 03/05/20 History Multivit-Min/FA/Lycopen/Lutein 1 tab PO DAILY 11/23/17 03/05/20 History [Centrum Silver Men Tablet] Tiotropium 18 Mcg/Puff [Spiriva] 1 puff INHALATION RT-DAILY 11/23/17 03/05/20 History Famotidine [Pepcid] 40 mg PO HS 12/12/19 03/05/20 History Acetaminophen [Tylenol Extra 500 mg PO BID 12/31/19 03/05/20 History Strength] amLODIPine [Norvasc] 10 mg PO DAILY 02/06/20 03/05/20 History Furosemide [Lasix] 20 mg PO DAILY 03/05/20 03/05/20 History Ondansetron [Zofran ODT] 4 mg PO Q8H PRN 03/05/20 03/05/20 History Potassium Chloride ER [K-Dur 20] 20 meq PO DAILY 03/05/20 03/05/20 History Allergies Allergy/AdvReac Type Severity Reaction Status Date / Time No Known Allergies Allergy Verified 03/05/20 16:30 Surgical - Exam Vital Signs Temp Pulse Resp BP Pulse Ox 97.9 F 114 H 24 102/62 91 L 03/05/20 13:38 03/05/20 13:38 03/05/20 13:38 03/05/20 13:38 03/05/20 13:38 Results - Labs 03/12/20 04:05 03/12/20 04:05 Abnormal Lab Results - Last 24 Hours (Table) 03/11/20 03/11/20 03/12/20 Range/Units 18:01 20:36 04:05 WBC 2.4 L (3.8-10.6) k/uL RBC 3.43 L (4.30-5.90) m/uL Hgb 10.6 L (13.0-17.5) gm/dL Hct 30.7 L (39.0-53.0) % RDW 20.0 H (11.5-15.5) % Plt Count 29 L (150-450) k/uL Lymphocytes # 0.2 L (1.0-4.8) k/uL ABG pH (7.35-7.45) ABG pO2 (83-108) mmHg ABG HCO3 (21-25) mmol/L ABG Total CO2 (19-24) mmol/L Chloride (98-107) mmol/L BUN (9-20) mg/dL Glucose (74-99) mg/dL POC Glucose (mg/dL) 132 H 142 H (75-99) mg/dL Calcium (8.4-10.2) mg/dL Total Bilirubin (0.2-1.3) mg/dL AST (17-59) U/L ALT (4-49) U/L Alkaline Phosphatase (38-126) U/L Total Protein (6.3-8.2) g/dL Albumin (3.5-5.0) g/dL 03/12/20 03/12/20 03/12/20 Range/Units 04:05 06:22 08:09 WBC (3.8-10.6) k/uL RBC (4.30-5.90) m/uL Hgb (13.0-17.5) gm/dL Hct (39.0-53.0) % RDW (11.5-15.5) % Plt Count (150-450) k/uL Lymphocytes # (1.0-4.8) k/uL ABG pH 7.49 H (7.35-7.45) ABG pO2 71 L (83-108) mmHg ABG HCO3 27 H (21-25) mmol/L ABG Total CO2 28 H (19-24) mmol/L Chloride 111 H (98-107) mmol/L BUN 38 H (9-20) mg/dL Glucose 136 H (74-99) mg/dL POC Glucose (mg/dL) 127 H (75-99) mg/dL Calcium 7.3 L (8.4-10.2) mg/dL Total Bilirubin 4.5 H (0.2-1.3) mg/dL AST 63 H (17-59) U/L ALT 100 H (4-49) U/L Alkaline Phosphatase 223 H (38-126) U/L Total Protein 4.0 L (6.3-8.2) g/dL Albumin 1.9 L (3.5-5.0) g/dL Microbiology - Last 24 Hours (Table) 03/11/20 12:32 Gram Stain - Preliminary Bronchoalviolar Lavage - Left Bronchial Washings Culture - Preliminary 03/11/20 12:32 Fungal Culture - Preliminary Bronchoalviolar Lavage - Left 03/11/20 12:32 Acid Fast Bacilli Culture - Preliminary Bronchoalviolar Lavage - Left 03/05/20 13:55 Blood Culture - Final Blood No Growth after 144 hours Diabetes panel 03/12/20 Range/Units 04:05 Sodium 139 (137-145) mmol/L Potassium 3.8 (3.5-5.1) mmol/L Chloride 111 H (98-107) mmol/L Carbon Dioxide 29 (22-30) mmol/L BUN 38 H (9-20) mg/dL Creatinine 0.83 (0.66-1.25) mg/dL Glucose 136 H (74-99) mg/dL Calcium 7.3 L (8.4-10.2) mg/dL AST 63 H (17-59) U/L ALT 100 H (4-49) U/L Alkaline Phosphatase 223 H (38-126) U/L Total Protein 4.0 L (6.3-8.2) g/dL Albumin 1.9 L (3.5-5.0) g/dL Calcium panel 03/12/20 Range/Units 04:05 Calcium 7.3 L (8.4-10.2) mg/dL Albumin 1.9 L (3.5-5.0) g/dL Pituitary panel 03/12/20 Range/Units 04:05 Sodium 139 (137-145) mmol/L Potassium 3.8 (3.5-5.1) mmol/L Chloride 111 H (98-107) mmol/L Carbon Dioxide 29 (22-30) mmol/L BUN 38 H (9-20) mg/dL Creatinine 0.83 (0.66-1.25) mg/dL Glucose 136 H (74-99) mg/dL Calcium 7.3 L (8.4-10.2) mg/dL Adrenal panel 03/12/20 Range/Units 04:05 Sodium 139 (137-145) mmol/L Potassium 3.8 (3.5-5.1) mmol/L Chloride 111 H (98-107) mmol/L Carbon Dioxide 29 (22-30) mmol/L BUN 38 H (9-20) mg/dL Creatinine 0.83 (0.66-1.25) mg/dL Glucose 136 H (74-99) mg/dL Calcium 7.3 L (8.4-10.2) mg/dL Total Bilirubin 4.5 H (0.2-1.3) mg/dL AST 63 H (17-59) U/L ALT 100 H (4-49) U/L Alkaline Phosphatase 223 H (38-126) U/L Total Protein 4.0 L (6.3-8.2) g/dL Albumin 1.9 L (3.5-5.0) g/dL
[2020-03-12] MEDS: HEPARIN SODIUM,PORCINE 5,000 UNIT/ML 1 ML VIAL SQ SCH (17:15)
[2020-03-12] MEDS: SALT AND SODA MOUTHWASH 1,000 ML PO SCH (23:12)
--- NOTE | 2020-03-13 10:44 | P.PN ---
Subjective Progress Note Date: 03/13/20 Paulo Stuart is a 69 yo M with hx of recently diagnosed lung cancer, COPD, diastolic CHF, HTN, HLD who presented to the ED with increasing shortness of breath. He was scheduled for his first cycle of chemotherapy yesterday but was noted to be hypoxic on room air and was therefore recommended to come to the ED. He denies any chest pain, fever or chills. He does endorse malaise and shortness of breath. On presentation he was tachycardic and hypoxic on room air, WBC 14k, Cr 1.4, BNP 300. CTA chest showing LLL mass with consolidation and obstruction. 03/07/2020 and received first chemotherapy yesterday. Tolerated well. Denies nausea or vomiting. No diarrhea. Scheduled for second dose of chemotherapy today. Diuresing well on Lasix IV push with 24-hour I&O reflecting a negative fluid balance.. Denies chest pain, palpitations or increased shortness of breath. Maintaining O2 sats in the 90s on 5 L nasal cannula. Mild tachycardia. Afebrile 03/10/2020 completed third bag of chemotherapy yesterday. Tolerated well. Denies nausea vomiting or diarrhea. Maintained on Zosyn for now. Occasional cough. Coronavirus not detected. Continues requirinf 5 L nasal cannula to maintain O2 sats in the 90s. Diuresing well on Lasix IV push, creatinine 1.02. Potassium 2.6 , magnesium 2.3.Denies chest pain, palpitations. 03/11/20 throughout the night and editorial director hours, respiratory status de clined. Developed increased shortness of breath, tachycardia. Heart rate currently 122, maintaining O2 sats of 83% on 15 L high flow nasal cannula- nonrebreather at bedside. Recently received IV push Lasix. Labs pending. 03/12/2020 chest x-ray yesterday showed left lung collapse, hypoxic respiratory failure and patient is transferred to ICU. BiPAP attempted with no significant improvement. Patient changed his CODE STATUS to full code and he was intubated. Patient was also bronchoscoped, reporting endobronchial tumor involving the distal left mainstem, left upper and lower lobe bronchus with subtotal occlusion as well as mucous plugs. Significant improvement reported on follow-up chest x- ray. Remains vent dependent with FiO2 50%/+5 of PEEP. Maintained on Levophed, diprovan , Zosyn and vancomycin for obstructive pneumonitis and mucous plugs. Chest x-ray this morning reporting progression of atelectasis, possible associated effusion. LFTs elevated, trending down. Platelets continue trending down, currently 29, hemoglobin down to 10.6. Albumin 1.9. ABGs noted Family notified of poor prognosis and en route to hospital. 03/13/2020 yesterday daughter/family made the patient comfort care. Maintained on morphine drip. Some agonal breathing. Family at bedside. Objective - Vital Signs Vital signs: Vital Signs Temp 97.7 F 03/12/20 15:00 Pulse 94 03/12/20 15:00 Resp 20 03/13/20 02:00 BP 116/74 03/12/20 15:00 Pulse Ox 93 L 03/12/20 15:00 Intake & Output 03/12/20 03/13/20 03/13/20 18:59 06:59 18:59 Intake Total 465.976 18.266 Output Total 1655 Balance -1189.024 18.266 Weight 75.2 kg Intake: IV 409 Pressure Bag 9 Sodium Chloride 0.9% 1, 400 000 ml @ 20 mls/hr IV . Q24H [facility] Rx#:[id number] Intake, IV Titration 46.976 18.266 Amount Morphine Sulfate (100 mg/ 18.266 2 ml) 100 mg In Sodium Chloride 0.9% 100 ml @ 1 MG/HR 1.02 mls/hr IV . Q24H [facility] Rx#:[id number] propofoL 1,000 mg In 46.976 Empty Bag 1 bag @ Titrate IV .Q0M [facility] Rx#: [id number] Oral 10 Output: Urine 1655 Other: Voiding Method Indwelling Catheter Indwelling Catheter # Voids 0 # Bowel Movements 0 ABP, PAP, CO, CI - Last Documented Arterial Blood Pressure 104/52 - Exam General: Sitting up in bed, having some agonal breathing. Oral mucosa dry. Heart rate currently in the 90s Bilateral lower extremity edema, with petechiae - Labs CBC & Chem 7: 03/12/20 04:05 03/12/20 04:05 Labs: Abnormal Lab Results - Last 24 Hours (Table) 03/11/20 Range/Units 12:32 Viral Test See Below A Microbiology - Last 24 Hours (Table) 03/11/20 12:32 Acid Fast Bacilli Smear - Final Bronchoalviolar Lavage - Left Acid Fast Bacilli Culture - Preliminary 03/11/20 12:32 Gram Stain - Preliminary Bronchoalviolar Lavage - Left Bronchial Washings Culture - Preliminary 03/11/20 12:32 Fungal Culture - Preliminary Bronchoalviolar Lavage - Left Assessment and Plan Assessment: (1) Acute hypoxemic respiratory failure related to left lung collapse, post-obstructive pneumonitis ,status post bronchoscopy reporting endobronchial tumor involving left mainstem, mucous plugging Current Visit: Yes Status: Acute Code(s): J96.01 - ACUTE RESPIRATORY FAILURE WITH HYPOXIA SNOMED Code(s): 217855146 (2) Acute on chronic diastolic CHF (congestive heart failure), NYHA class 3 Current Visit: Yes Status: Acute Code(s): I50.33 - ACUTE ON CHRONIC DIASTOLIC (CONGESTIVE) HEART FAILURE SNOMED Code(s): 493352624 (3) postobstructive pneumonia secondary to endobronchial tumor (4) Hyperbilirubinemia Current Visit: Yes Status: Acute Code(s): E80.6 - OTHER DISORDERS OF BILIRUBIN METABOLISM SNOMED Code(s): 91690013 (5) Liver metastases with elevated LFTs Current Visit: Yes Status: Acute Priority: High Code(s): C78.7 - SECONDARY MALIG NEOPLASM OF LIVER AND INTRAHEPATIC BILE DUCT SNOMED Code(s): 97473060 (6) Small cell lung cancer Current Visit: Yes Status: Acute Priority: High Code(s): C34.90 - MALIGNANT NEOPLASM OF UNSP PART OF UNSP BRONCHUS OR LUNG SNOMED Code(s): 049429919 (7) Transaminitis Current Visit: Yes Status: Acute Priority: High Code(s): R74.01 - ELEVATION OF LEVELS OF LIVER TRANSAMINASE LEVELS SNOMED Code(s): 182599703 (8) pancytopenia, chemotherapy induced (8) hypokalemia (9) COPD (10) moderate pulmonary hypertension (11) possible cardiogenic shock, possible septic shock, pressor dependent secondary to #1 (12) no code, no CPR, no intubation (13) comfort care Plan:Continue on current medication regime ,monitoring and symptomatic treatme nt. Comfort care in progress, titrate morphine drip to comfort. Family at bedside, support given. The impression and plan of care has been dictated as directed. : I performed a history and examination of this patient, discussed the same with the dictator. I agree with the dictator's note ,documented as a scribe. Any additional findings or plans will be noted.
[2020-03-13 12:45] VITALS: BP 72/41; PULSE 129; RESP 21; TEMP 102.2
[2020-03-13] MEDS: MORPHINE SULFATE (100 MG/2 ML) 100 MG in SODIUM CHLORIDE 0.9% 100 ML IV SCH (15:06)
--- NOTE | 2020-03-14 13:06 | CDI ---
Documentation Clarification Form Date: 03/14/2020 12:48:36 PM From: Courtney Garcia RN, CCDS Admit Date: 03/05/2020 06:53:00 PM Patient Name: Paulo Stuart Visit Number: [id number] Discharge Date: 03/13/2020 05:13:00 PM ATTENTION: The Clinical Documentation Specialists (CDI) and [facility] Coding Staff appreciate your assistance in clarifying documentation. Please respond to the clarification below the line at the bottom and electronically sign. The CDI & [facility] Coding staff will review the response and follow-up if needed. Please note: Queries are made part of the Legal Health Record. If you have any questions, please contact the author of this message via ITS. Dr. 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 114, RR 24, B/P 102/62, Spo2 91% RA Other Clinical Indicators: possible postobstructive pneumonia, Small cell lung cancer, ELAYNE on CKD stage 3b, acute hypoxic respiratory failure Treatment: ID Consult: Not Ordered Antibiotics: 03/08-03/12 3.375gm Zosyn IVPB q 8hrs, 03/11 Vanco 1500mg IVPB OT, 03/12 Vanco 1250 mg IVPB q 12 hrs. Patient was initialed on Chemotherapy 1/21 Patient was initiated on Levophed titrate for B/P on 03/11 IV Bolus: none In your professional opinion, please clarify if these findings signify one of the following conditions, whether the condition is POA, and cause, if known: Condition Sepsis Severe Sepsis Septic Shock Other, please specify Unable to determine Present on Admission Yes No Identify the (suspected) organism Link or clarify if there is associated (due to/with): Organ failure Shock SIRS Criteria (2 or more of the following may indicate SIRS): -Temperature < 96.8F (36C) or > 101.0F (38.3C) -Heart Rate > 90 bpm -Respiratory Rate > 20 breaths/min or PaCO2 < 32 mmHg -White Blood Cell Count > 12,000 or < 4,000 cells/mm3 or > 10% bands -Lactate >2.0 mmol/L (>4.0 is equivalent to septic shock) (Last Revision: May 2017) Severe Sepsis, POA MTDD
--- NOTE | 2020-03-14 14:00 | CDI ---
Documentation Clarification Form Mortality Review Date: 03/14/2020 01:11:13 PM From: Courtney Garcia RN, CCDS Admit Date: 03/05/2020 06:53:00 PM Patient Name: Paulo Stuart Visit Number: [id number] Discharge Date: 03/13/2020 05:13:00 PM ATTENTION: The Clinical Documentation Specialists (CDI) and [facility] Coding Staff appreciate your assistance in clarifying documentation. Please respond to the clarification below the line at the bottom and electronically sign. The CDI & [facility] Coding staff will review the response and follow-up if needed. Please note: Queries are made part of the Legal Health Record. If you have any questions, please contact the author of this message via ITS. Dr. Davi Lomas Patient Presented with SOB and a recent diagnosis of Small cell lung cancer in acute hypoxic respiratory failure. Postobstructive pneumonia begins being documented in Provider notes beginning on 03/08 along with Antibiotics being initiated. Is it possible that this diagnosis was present on admission? Please review clinical findings. History/Risk Factors: Small cell lung CA with mets to liver, COPD, Former smoker/vaper Clinical Indicators: 03/05 1338 Vital signs: Temp 97.9, HR 114, RR 24, B/P 102/62, Spo2 91% RA 03/05-03/12 WBC 14.2/12/11/8.1/7.9/4.8/2.4 03/05-03/12 Left shift: 13.1/11.4/10.6/7.9/7.6/4.5/2.2 03/05 Chest X-ray: "New small to tiny left pleural effusion and associated patchy left basilar atelectasis and/or infiltrate." 03/05 CTA Chest: "Left lower lobe mass at the left pulmonary hilum with bronchial and mediastinal adenopathy consistent with tumor that appears significantly increased in size compared to CT scan of 12/28/2019.There is left lower lobe atelectasis that is new compared to old exam. Obstruction left lower lobe bronchus. Left adrenal mass consistent with metastatic disease increased in size compared to old exam. Bullous emphysema." 03/06 H&P: Lung/Breathing assessment: "Lungs: normal respiratory effort, wheezes and rhonchi throughout. Rales at bases." Treatment: Antibiotics: 03/08 Zosyn 3.375gm IVPB Q 8 hrs., 03/11 Vanco 1500mg IVPB x 1, 03/12 Vanco 1250mg IVPB Q12hrs. O2: room air, increased to 3lNC, then 5L NC to 15L high Flow NC, to 100% Bipap to Mechanical vent Breathing TX: Duoneb QID 03/06 IV Decadron 10 mg QD x 3 doses 03/11 IV Solu-Medrol 40 mg IVP Q8hrs In order to capture the severity of condition, please clarify if the condition signifies and you are treating for: Postobstructive pneumonia was POA Postobstructive Pneumonia was not POA Other, please specify Unable to determine (Last Revision: May 2017) Postobstructive pneumonia was POA MTDD
== END 2020-03-13 17:13 | disposition expired | DRG 208 ==
LOC: EC 13:35 → 3SCARD 18:53 → 5NMEDONC 03-06 15:11 → 2SICU 03-11 10:46 → 5NMEDONC 03-12 17:00
PROVIDERS: ADMIT Family Medicine; ATTEND Family Medicine
PROC: 3E03305 Introduction of Other Antineoplastic into Peripheral Vein, Percutaneous Approach (ICD-10-PCS; 2020-03-06)
PROC: 0B9L8ZX Drainage of Left Lung, Via Natural or Artificial Opening Endoscopic, Diagnostic (ICD-10-PCS; 2020-03-11)
PROC: 0BCB8ZZ Extirpation of Matter from Left Lower Lobe Bronchus, Via Natural or Artificial Opening Endoscopic (ICD-10-PCS; 2020-03-11)
PROC: 0BC88ZZ Extirpation of Matter from Left Upper Lobe Bronchus, Via Natural or Artificial Opening Endoscopic (ICD-10-PCS; 2020-03-11)
PROC: 5A09357 Assistance with Respiratory Ventilation, Less than 24 Consecutive Hours, Continuous Positive Airway Pressure (ICD-10-PCS; 2020-03-11)
PROC: 0BH17EZ Insertion of Endotracheal Airway into Trachea, Via Natural or Artificial Opening (ICD-10-PCS; 2020-03-11)
PROC: 03HY32Z Insertion of Monitoring Device into Upper Artery, Percutaneous Approach (ICD-10-PCS; 2020-03-11)
PROC: 4A133B1 Monitoring of Arterial Pressure, Peripheral, Percutaneous Approach (ICD-10-PCS; 2020-03-11)
PROC: 4A133J1 Monitoring of Arterial Pulse, Peripheral, Percutaneous Approach (ICD-10-PCS; 2020-03-11)
PROC: 02H633Z Insertion of Infusion Device into Right Atrium, Percutaneous Approach (ICD-10-PCS; 2020-03-11)
PROC: 3E033XZ Introduction of Vasopressor into Peripheral Vein, Percutaneous Approach (ICD-10-PCS; 2020-03-11)
PROC: 5A1945Z Respiratory Ventilation, 24-96 Consecutive Hours (ICD-10-PCS; principal; 2020-03-11 12:15)
DX: C34.02 Malignant neoplasm of left main bronchus (principal); J96.01 Acute respiratory failure with hypoxia; I50.33 Acute on chronic diastolic (congestive) heart failure; J18.9 Pneumonia, unspecified organism; D61.810 Antineoplastic chemotherapy induced pancytopenia; R65.21 Severe sepsis with septic shock; A41.9 Sepsis, unspecified organism; J44.0 Chronic obstructive pulmonary disease with (acute) lower respiratory infection; N17.9 Acute kidney failure, unspecified; C78.89 Secondary malignant neoplasm of other digestive organs; I13.0 Hypertensive heart and chronic kidney disease with heart failure and stage 1 through stage 4 chronic kidney disease, or unspecified chronic kidney disease; C79.70 Secondary malignant neoplasm of unspecified adrenal gland; C78.7 Secondary malignant neoplasm of liver and intrahepatic bile duct; J98.11 Atelectasis; R57.0 Cardiogenic shock; I27.22 Pulmonary hypertension due to left heart disease; N18.32 Chronic kidney disease, stage 3b; Z66 Do not resuscitate; Z51.5 Encounter for palliative care; Z20.822 Contact with and (suspected) exposure to COVID-19; E78.5 Hyperlipidemia, unspecified; M19.90 Unspecified osteoarthritis, unspecified site; K21.00 Gastro-esophageal reflux disease with esophagitis, without bleeding; T50.1X5A Adverse effect of loop [high-ceiling] diuretics, initial encounter; R00.0 Tachycardia, unspecified; E87.6 Hypokalemia; R59.0 Localized enlarged lymph nodes; T45.1X5A Adverse effect of antineoplastic and immunosuppressive drugs, initial encounter; Z71.3 Dietary counseling and surveillance; Z79.51 Long term (current) use of inhaled steroids; Z79.899 Other long term (current) drug therapy; Z98.890 Other specified postprocedural states; Z87.891 Personal history of nicotine dependence; Z87.01 Personal history of pneumonia (recurrent); Z80.7 Family history of other malignant neoplasms of lymphoid, hematopoietic and related tissues; Z80.3 Family history of malignant neoplasm of breast; Z80.1 Family history of malignant neoplasm of trachea, bronchus and lung
CPT/HCPCS: 31624; 36415; 71045; 71046; 71275; 80048; 80053; 80076; 81003; 82728; 82805; 83605; 83615; 83735; 83880; 84145; 84484; 85025; 85379; 85610; 85730; 86140; 87040; 87070; 87102; 87116; 87205; 87206; 87252; 87496; 87498; 87502; 87529; 87634; 87798; 88108; 88305; 93005; 93306; 94002; 94003; 94640; 94660; 99285